=== PATIENT | female | born 1950 | race Caucasian/White ===

== ENCOUNTER 2016-09-14 15:11 | Inpatient (IN) ==
[2016-09-14 15:50] LABS: MANUAL DIFF NEEDED? NO
[2016-09-14 16:00] LABS: BASO% 0.2 % (0.0-0.8); EOS# 0.23 X1000 (0.0-0.7); EOS% 1.4 % (0.0-10.0); HEMATOCRIT 42.2 % (37.0-47.0); HEMOGLOBIN 14.5 g/dL (12.0-16.0); IMM GRAN# 0.04 X1000 (0.0-0.04); IMM GRAN% 0.2 % (0.0-0.5); LYMPH# 3.16 X1000 (1.2-3.4); LYMPH% 19.5 % (20.5-51.1); MCH 29.1 PG (27-31); MCHC 34.4 g/dL (33-37); MCV 84.6 FL (81-99); MONO# 1.07 X1000 (0.11-0.59); MONO% 6.6 % (1.7-9.3); MPV 9.3 FL (7.4-10.4); NEUT% 72.1 % (42.2-75.2); PLT 442 X1000 (130-400); RBC 4.99 XMIL (4.2-5.4)
[2016-09-14 16:10] LABS: AGAP 16; ALBUMIN 3.8 g/dL (3.5-5.0); ALKALINE PHOSPHATASE 102 U/L (32-104); AMYLASE 20 U/L (20-200); BUN 13 mg/dL (8-22); CALCIUM 9.1 mg/dL (8.8-10.2); CHLORIDE 94 mmol/L (98-107); COSMO 282; GOT 16 U/L (10-30); GPT 21 U/L (10-36); LIPASE 15 U/L (13-60); POTASSIUM 3.6 mmol/L (3.5-5.1); SODIUM 138 mmol/L (136-145); TCO2 28 mmol/L (25-35); TOTAL BILIRUBIN 0.55 mg/dL (0.20-1.00); TOTAL PROTEIN 7.2 g/dL (6.3-8.3)
[2016-09-14] MEDS ORDERED: MORPHINE IV ONE (18:47)
[2016-09-14] MEDS ORDERED: ZOFRAN IV ONE (18:48)
[2016-09-14 18:57] LABS: URINE CULTURE NEEDED? NO; URINE MICRO REVIEW NEEDED? NO; URINE SOURCE CATH
[2016-09-14 19:03] LABS: BILIRUBIN URINE NEGATIVE (NEGATIVE); BLOOD URINE NEGATIVE (NEGATIVE); COLOR YELLOW; GLUCOSE URINE 200 mg/dL (NEGATIVE); LEUKOCYTES URINE NEGATIVE (NEGATIVE); NITRITE URINE NEGATIVE (NEGATIVE); PH URINE 5.5; PROTEIN URINE TRACE mg/dL (NEGATIVE); SP GRAVITY URINE 1.021; TURBIDITY URINE CLEAR (CLEAR); UROBILINOGEN URINE NORMAL (NORMAL)
[2016-09-14 19:06] LABS: UR EPITHELIAL CELLS <10 /HPF (<10); URINE BACTERIA NEGATIVE /HPF; URINE RBC <10 /HPF (<10); URINE WBC <10 /HPF (<10)
[2016-09-14] MEDS ORDERED: LEVAQUIN 750 MG/D5W 750 MG/150 ML IVPB IV ONE (19:20)
[2016-09-14] MEDS ORDERED: NS 1,000 ML IV ONE (19:20)
[2016-09-14] MEDS ORDERED: FLAGYL 500 MG/NS 500 MG/100 ML IVPB IV ONE (19:20)
--- NOTE | 2016-09-14 19:22 | PROVIDER DOCUMENTATION ---
This chart was entered by Marilyn Garcia Scribe, acting as scribe for Carlos Keller MD. HPI-Abdominal Pain/GI Problem - General Chief Complaint: Abdominal Pain Stated Complaint: BACK/PELVIC PAIN Time Seen by Provider: 09/14/16 18:39 Source: patient Allergies/Adverse Reactions: Patient Allergies Allergy/AdvReac Type Severity Reaction Status Date / Time No Known Allergies Allergy Verified 09/14/16 17:46 Home Medications: Home Medication List Medication Instructions Recorded Confirmed Last Taken Type Calcium Citrate/Vitamin D 1 each PO DAILY 09/14/16 09/14/16 09/14/16 06:00 History [Citracal + D] Metformin [Glucophage] 1,000 mg PO BID CC 09/14/16 09/14/16 09/14/16 06:00 History Valsartan/Hydrochlorothiazide 1 each PO DAILY 09/14/16 09/14/16 09/14/16 06:00 History [Valsartan-Hctz 160-25 mg Tab] - History of Present Illness-ABD Nature of Presenting Problems: 66 Y/O F presents to ED with ABD pain. Pt states that she's had 1 week of constant pain that is in her periumblical and suprapubic pain that is radiating to her lower back. Describes the pain as cramping. States N, V bile and D, chills, muscles aches and cough. Pt states OTC meds with no relief. Abdominal Pain Onset Location: reports: periumbilical, suprapubic Pain Radiation: reports: back Quality of Pain: reports: cramping Severity in ED: reports: severe Onset/Duration: reports: 1 week ago Timing: reports: still present Activities at Onset: reports: none Exposure to sick contacts?: No Associated Symptoms: reports: back/neck pain, cough, diarrhea, fever/chills (no fever), muscle aches, nausea, vomiting. denies: chest pain, EENT symptoms, seizure, shortness of breath Review of Systems - Adult - REVIEW OF SYSTEMS - ADULT Constitutional: reports: chills. denies: fever Eyes: reports: no symptoms reported Ears, Nose, Mouth & Throat: reports: no symptoms reported Cardiovascular: denies: chest pain Respiratory: reports: cough. denies: shortness of breath Gastrointestinal: reports: abdominal pain, diarrhea, nausea, vomiting. denies: poor appetite Genitourinary: denies: flank pain Musculoskeletal: reports: back pain. denies: neck pain Integumentary: reports: no symptoms reported Neurological: reports: no symptoms reported Psychiatric: reports: no symptoms reported Endocrine: reports: no symptoms reported Hematologic/Lymphatic: reports: no symptoms reported Allergic/Immunologic: reports: no symptoms reported All Other Systems: Reviewed and Negative Past History - Adult - PAST MEDICAL HISTORY-ADULT Review of Records: reports: Old Records Reviewed, Nursing Assessment Review, Medications Reviewed, Social history reviewed & non-contributory. - SOCIAL HISTORY Smoking: quit greater than 1 year Substance Use: none/never Alcohol Use Frequency: never Living Situation: family Physical Exam-General - PHYSICAL EXAM-ADULT Initial Vital Signs Reviewed: Yes - CONSTITUTIONAL General Appearance: appears well, alert, mild distress - EYES Eyes: PERRL/EOMI, pink conjunctivae - HEAD, EARS, NOSE, MOUTH & THROAT HENMT: normocephalic/atraumatic, moist mucous membranes, normal ENT inspection, TMs normal, pharynx normal - NECK Neck: non-tender, full range of motion, supple, normal inspection - RESPIRATORY Respiratory: chest non-tender, lungs clear, normal breath sounds - CARDIOVASCULAR Cardiovascular: tachycardia - GASTROINTESTINAL (ABDOMEN) Abdominal Exam: tenderness (suprapubic) - LYMPHATIC Lymphatic: no adenopathy - MUSCULOSKELETAL Back Exam: normal inspection, no CVA tenderness, no vertebral tenderness Extremity: normal range of motion - SKIN Integumentary: normal color, normal turgor, warm/dry - NEUROLOGIC Neurologic: sodder II-XII nml as tested - PSYCHIATRIC Psych/Mental Status: normal mood/affect, normal thought content, normal thought process, oriented x 3 Progress - PLAN OF CARE/RESULTS Progress/Plan/Lab Results: Vital Signs - 8 hr 09/14/16 15:14 09/14/16 18:35 Temperature 98.0 F Pulse Rate 91 H 102 H Respiratory Rate 20 25 H Blood Pressure 155/89 134/66 O2 Sat by Pulse Oximetry 96 96 Laboratory Results - last 24 hr 09/14/16 09/14/16 15:20 15:20 WBC 16.19 H RBC 4.99 Hgb 14.5 Hct 42.2 MCV 84.6 MCH 29.1 MCHC 34.4 RDW Std Deviation 13.4 Plt Count 442 H MPV 9.3 Immature Gran % (Auto) 0.2 Neut % (Auto) 72.1 Lymph % (Auto) 19.5 L [place] % (Auto) 6.6 Eos % (Auto) 1.4 Baso % (Auto) 0.2 Immature Gran # (Auto) 0.04 Neut # (Auto) 11.65 H Lymph # (Auto) 3.16 [place] # (Auto) 1.07 H Eos # (Auto) 0.23 Baso # (Auto) 0.04 Sodium 138 Potassium 3.6 Chloride 94 L Carbon Dioxide 28 Anion Gap 16 BUN 13 Creatinine 0.8 Estimated GFR/1.73 m2 > 60 BUN/Creatinine Ratio 16 Glucose 207 H Calculated Osmolality 282 Calcium 9.1 Total Bilirubin 0.55 AST 16 ALT 21 Alkaline Phosphatase 102 Total Protein 7.2 Albumin 3.8 Globulin 3.4 Albumin/Globulin Ratio 1.1 Amylase 20 Lipase 15 Orders Category Date Time Status NPO Diet 09/14/16 15:26 Active AMYLASE [CHEM] Stat Lab 09/14/16 15:20 Completed CBC WITH ELECTRONIC DIFF [HEME] Stat Lab 09/14/16 15:20 Completed COMPREHENSIVE METABOLIC PANEL [CHEM] Stat Lab 09/14/16 15:20 Completed LIPASE [CHEM] Stat Lab 09/14/16 15:20 Completed URINALYSIS W/POSS RFLX CULT-1 [URINALYSIS] Stat Lab 09/14/16 18:32 Ordered Result Diagrams: 09/14/16 15:20 09/14/16 15:20 - CT/MRI 1 CT Study: Abdomen Impression: Abnormal (diverticulitis) Departure - Departure Time of Disposition Decision: 19:21 DIAGNOSIS: Diverticulitis Disposition: ADMITTED INPATIENT 09 Certified Medical Emergency: Emergent Condition: Fair Referrals and Follow-Ups: Mani Sarabia MD [Primary Care Provider] - - Critical Care Note This patient required my direct & personal management of CC.: No Attestation - Physician/ ANNA Attestation Patient care was provided by Advanced Practice Provider:: No This chart was documented by the indicated scribe, (Marilyn Garcia Scribe) and accurately reflects the services I performed and decisions made by me, Carlos Keller MD, as attested by the provider's signature.
--- NOTE | 2016-09-14 19:42 | Diag Imaging Result Document ---
PROCEDURE NAME: ABDOMEN/PELVIS W/O CONTRAST - 09/14/2016 CT UROGRAM WITHOUT CONTRAST: FINDINGS: There are no previous studies. There is no evidence of acute disease in the visualized portion of the chest. There is a small hiatal hernia. There are granulomata in the spleen. There has been cholecystectomy. There are vascular calcifications in the kidneys. There are no definite stones. The urinary bladder is not distended. There is severe diverticulosis, particularly in the sigmoid colon where there is evidence of active diverticulitis. There is an early abscess adjacent to the distal sigmoid seen on image 120 and measuring 2.3 cm in diameter. There is fluid in the cul-de-sac. The appendix is at the upper limits of normal in size, measuring 8 mm in diameter distally. There is an umbilical hernia containing fat. IMPRESSION: Sigmoid diverticulitis with early abscess.
--- NOTE | 2016-09-14 22:12 | HISTORY AND PHYSICAL ---
PRIMARY CARE PHYSICIAN: Mani Sarabia MD. CHIEF COMPLAINT: Abdominal pain x1 week. HISTORY OF PRESENTING ILLNESS: A 66-year-old female with a history of diabetes mellitus type 2 and hypertension who presented to the emergency department with a 1-week history of having abdominal pain. She describes it as sharp and diffuse, and rates the pain about 8/10. She states that she was nauseated. Patient states the symptoms were worsening so she came to the emergency department. In the ER, she was evaluated and had imaging done which did show diverticulitis. Subsequently she will need hospitalization and further management. At the time of my examination she had denied any headaches, vision changes, fevers, chills, chest pain, shortness of breath, hemoptysis or any weight changes but complained of a moderate amount of abdominal pain and nausea. PAST MEDICAL HISTORY: Diabetes mellitus type 2, hypertension. PAST SURGICAL HISTORY: Cholecystectomy. ALLERGIES: No known drug allergies. CURRENT MEDICATIONS: As listed in MAR. SOCIAL HISTORY: She is a former smoker with a history of alcohol abuse. Denies any illicit drug use. FAMILY HISTORY: No history of coronary disease. REVIEW OF SYSTEMS: Twelve point systems as in HPI. Other systems negative. PHYSICAL EXAMINATION: GENERAL: Cooperative, friendly female. She is resting comfortably now. VITAL SIGNS: Temperature 98.1 degrees, pulse 91, respirations 20, blood pressure 155/89, she is saturating 96%. HEENT: Atraumatic, normocephalic. Extraocular movements intact. PERRLA. NECK: Supple. CHEST: Clear to auscultation. CARDIOVASCULAR: Regular rate and rhythm. ABDOMEN: Soft. Diffuse tenderness. EXTREMITIES: No edema. NEUROLOGIC: She is awake, alert, oriented x2. GENITOURINARY: No bladder distention. SKIN: Warm. LABORATORIES AND STUDIES: WBC 16.19, hemoglobin 14.5, hematocrit 42.2, platelets 442,000. Sodium 138, potassium 3.6, chloride 94, CO2 of 28, BUN is 13, creatinine 0.8, glucose is 207. ASSESSMENT: A 66-year-old female with a history of diabetes mellitus type 2 and hypertension who presented to the emergency department with a 1-week history of having abdominal pain. The patient had imaging done in the ER which was consistent with diverticulitis. Subsequently she will need hospitalization and further management. 1. Acute sigmoid diverticulitis. 2. Diabetes mellitus type 2. 3. Hypertension. PLAN: 1. We will admit patient to medical floor with telemetry. 2. I will keep patient NPO, start patient on IV antibiotics and give adequate pain control. 3. We will use antiemetics p.r.n. nausea. 4. We will monitor blood glucose and put patient on sliding scale insulin regimen. 5. Monitor blood pressure. Resume antihypertensive agents. 6. We will put patient on DVT prophylaxis with SCDs. 7. We will continue to follow and reassess. cc: Antony Dunn MD
[2016-09-14] MEDS: NS 1,000 ML IV SCH (23:02)
[2016-09-14] MEDS: ZOSYN 3.375 GM/NS 3.375 GM/50 ML IVPB IV SCH (23:03)
[2016-09-15] MEDS: MORPHINE IV PRN ×4 (01:20→22:16)
[2016-09-15] MEDS: ZOSYN 3.375 GM/NS 3.375 GM/50 ML IVPB IV SCH ×3 (04:12→15:52)
[2016-09-15 06:15] LABS: BASO% 0.1 % (0.0-0.8); EOS# 0.02 X1000 (0.0-0.7); EOS% 0.1 % (0.0-10.0); HEMATOCRIT 36.5 % (37.0-47.0); HEMOGLOBIN 12.5 g/dL (12.0-16.0); IMM GRAN# 0.04 X1000 (0.0-0.04); IMM GRAN% 0.2 % (0.0-0.5); LYMPH# 1.53 X1000 (1.2-3.4); LYMPH% 9.2 % (20.5-51.1); MANUAL DIFF NEEDED? YES; MCH 29.6 PG (27-31); MCHC 34.2 g/dL (33-37); MCV 86.3 FL (81-99); MONO# 0.78 X1000 (0.11-0.59); MONO% 4.7 % (1.7-9.3); MPV 9.2 FL (7.4-10.4); NEUT% 85.7 % (42.2-75.2); PLT 358 X1000 (130-400); RBC 4.23 XMIL (4.2-5.4)
[2016-09-15] MEDS: HUMULIN R SUBQ SCH ×4 (06:30→22:08)
[2016-09-15 06:46] LABS: CALCIUM 8.9 mg/dL (8.8-10.2); POTASSIUM 4.2 mmol/L (3.5-5.1)
[2016-09-15 07:11] LABS: BANDS 6 % (0-1); LYMPHS 6 % (21-51); MONO 6 % (1-9)
[2016-09-15] MEDS: NS 1,000 ML IV SCH ×3 (16:46→22:16)
--- NOTE | 2016-09-15 17:16 | PROGRESS NOTE ---
DATE: 09/15/2016 SUBJECTIVE: Today Ms. Thapa refers to be doing a little better. Continues to have abdominal discomfort. OBJECTIVE: Vital signs: Blood pressure is 145/61, pulse of 113, temperature is 102.5 degrees. General: Ms. Thapa 66-year-old female. She is in bed, seems slightly in mild discomfort. HEENT: Mucosa is pink and moist. Anicteric. Acyanotic. Neck: Supple. Chest: Clear. Cardiovascular: Regular rate and rhythm. Abdomen: Distended and mildly tender all over more so to the right lower abdomen. MEAT COOLER: Patient is alert and oriented. Extremities: No pedal edema. MEAT COOLER: Patient is alert and oriented x4. LABORATORY DATA: WBC 16.65, hemoglobin is 12.5, platelet count of 358,000, there is 6% of bands on periphery smear. Sodium is 135, potassium is 4.3, chloride is 95, bicarb is 28, creatinine is 1.0. A CT scan of the abdomen did show sigmoid diverticulitis with early abscess. Abdominal ultrasound there is an old right upper quadrant surgical scar consistent with previous cholecystectomy. ASSESSMENT: 1. Sepsis secondary to diverticulitis. 2. Acute sigmoid diverticulitis with early abscess. 3. Diabetes mellitus. 4. Hypertension controlled. 5. Mild obesity. MEDICATIONS: Review of current medications include Zosyn, morphine p.r.n., insulin sliding scale. PLAN: I think Ms. Thapa continues to be showing signs of sepsis. We will consult surgery to evaluate the patient for possible intervention because of the early abscess formation and will also consult ID to guide us with the antibiotic recommendation. For now I will continue with the Zosyn which is pretty much a very broad coverage for enteric bacteria. cc: MD SOPHY Davila
[2016-09-15] MEDS: ZOFRAN IV PRN ×2 (17:25→22:16)
--- NOTE | 2016-09-15 18:34 | CONSULTATION ---
DATE OF CONSULTATION: 09/15/2016 CHIEF COMPLAINT: Acute diverticulitis with abscess. HISTORY: This is a 66-year-old, mildly obese, white female who presents with a week history of lower abdominal pain. The pain worsened yesterday. She came to the ED. A CT scan reveals acute diverticulitis with a small surrounding abscess in the sigmoid. Today, she feels to have some fever. This is her first episode. PAST HISTORY: Pertinent for type 2 diabetes, hypertension, brain aneurysm. PREVIOUS SURGERY: Includes a cholecystectomy, and she has apparently had coiling of a brain aneurysm in [place] in the past. MEDICATIONS: Listed. ALLERGIES: She has no known drug allergies. SOCIAL HISTORY: She denies smoking or alcohol use. FAMILY HISTORY: Pertinent for coronary disease. REVIEW OF SYSTEMS: Pertinent for the lower abdominal pain and now with chills and fever. PHYSICAL EXAM: Vital Signs: Her temperature was 102.5 degrees, heart rate 113, respiratory rate 28, blood pressure 145/61. Neck: No cervical adenopathy. No thyroid masses. Chest: Bilateral breath sounds heard. Heart: Regular rate and rhythm. Abdomen: Soft. She is tender with some mild rebound in the lower abdomen. Extremities: Femoral pulses are present. No peripheral edema. DIAGNOSTICS/LABS: White count is 16,600, hemoglobin 12.5. BUN 19, creatinine 1.0. ASSESSMENT/PLAN: Acute diverticulitis with abscess. The plan will be to try to give her antibiotics and help resolve her septic symptoms. If we can do that we can avoid operating on her urgently and avoid a colostomy. If we can improve her symptoms and her white count perhaps we can prep her bowel and resect this segment and prevent a colostomy. That is what we will try, but we will observe her closely for the next 24-48 hours just in case intervention becomes mandatory. Thanks for the opportunity to see her. cc: Jose Carlos Cross MD
--- NOTE | 2016-09-15 18:54 | CONSULTATION ---
DATE OF CONSULTATION: 09/16/2015 CONCLUSION: The patient is admitted to the hospital with a severe case of sigmoid diverticulitis. There appears to be early abscess formation. RECOMMENDATIONS: I agree with treating the patient with Zosyn. I have increased the dose to 4.5 g IV every 6 hours. DISCUSSION: The patient approximately a week ago started developing generalized abdominal pain, fever and chills. She also states that when she had a bowel movement or passed urine it was painful. She was admitted to the hospital. On CT scan she has sigmoid diverticulitis with early abscess formation. The patient's CBC shows a white count of 16,650, hemoglobin 12.5 and platelet count 358,000. Creatinine is 1.0. GFR is 56. PAST MEDICAL HISTORY/REVIEW OF SYSTEMS: Eyes and ears: She denies difficulty hearing or seeing. Neck: No stiffness. Respiratory: No cough or shortness of breath. : No dysuria or flank pain. Cardiovascular: No chest pain or palpitations. GI: No nausea or vomiting. She has had though as mentioned above in the past week abdominal pain and diarrhea. Bones , joints, muscles: The patient has pain in both shoulders and knees especially with use of them. Endocrine: Patient does not have diabetes or thyroid disease. Neurologic: No seizures, no motor sensory loss. Integument: No rash. LOGISTICS CLERK HISTORY: She is a 2, para 1, AB1. She has had tubal ligation. PREVIOUS HOSPITALIZATIONS AND OPERATION: She has had a labor and delivery, a miscarriage, and a tubal ligation. She has also had a cholecystectomy. She had an intracranial aneurysm which was treated by an intravascular to form a blood clot where the patient had her aneurysm. MEDICAL DISEASES: Positive for intracranial aneurysm, diabetes mellitus and hypertension. INFECTIOUS DISEASE HISTORY: Positive for pneumonia and UTI. FAMILY HISTORY: Positive for cancer, hypertension and stroke. SOCIAL HISTORY[place] She stopped smoking cigarettes years ago. She does not drink alcoholic beverages. She does not abuse drugs. ALLERGIES: Her chart lists no known allergies her. HOME MEDICATIONS: Include valsartan/hydrochlorothiazide, metformin and calcium citrate. PHYSICAL EXAMINATION: Vital Signs: Temperature is 102.5 degrees, pulse 113, respirations 28, blood pressure 145/61. Patient weighs 169 pounds. Generally: This is a somewhat ill-appearing middle-aged female. She is in no acute distress. Head, eyes, ears, nose, and throat: She can hear my spoken words and see near objects. There are no white patches in her mouth. Neck: No meningismus. Thorax: No increased AP diameter of the chest. Lungs: Clear to auscultation. Cardiac: Regular heart rate. Peripheral pulses are palpable. Abdomen: Soft but diffusely tender. Bowel sounds were present. Neurologic: Patient is alert. She can move her extremities. There is no tremor. Her sensation is intact to touch. Her memory , as regarding her medical history is intact. Integument: No rash noted. Thank you for the consult. cc: Jerry Payton MD MTDD
[2016-09-15] MEDS: ZOSYN 4.5 GM/NS 4.5 GM/100 ML IVPB IV SCH (22:16)
[2016-09-16] MEDS: NS 1,000 ML IV SCH ×3 (02:28→22:19)
[2016-09-16] MEDS: ZOSYN 4.5 GM/NS 4.5 GM/100 ML IVPB IV SCH ×3 (04:56→18:40)
[2016-09-16 06:05] LABS: BASO% 0.1 % (0.0-0.8); EOS# 0.01 X1000 (0.0-0.7); EOS% 0.1 % (0.0-10.0); HEMATOCRIT 37.9 % (37.0-47.0); HEMOGLOBIN 12.5 g/dL (12.0-16.0); IMM GRAN# 0.05 X1000 (0.0-0.04); IMM GRAN% 0.3 % (0.0-0.5); LYMPH# 0.81 X1000 (1.2-3.4); LYMPH% 4.6 % (20.5-51.1); MANUAL DIFF NEEDED? YES; MCH 28.9 PG (27-31); MCV 87.7 FL (81-99); MONO# 0.82 X1000 (0.11-0.59); MONO% 4.7 % (1.7-9.3); MPV 9.3 FL (7.4-10.4); NEUT% 90.2 % (42.2-75.2); PLT 370 X1000 (130-400); RBC 4.32 XMIL (4.2-5.4)
[2016-09-16 06:15] LABS: CALCIUM 8.3 mg/dL (8.8-10.2); POTASSIUM 3.6 mmol/L (3.5-5.1)
[2016-09-16] MEDS: HUMULIN R SUBQ SCH ×5 (06:16→22:19)
[2016-09-16 06:43] LABS: BANDS 8 % (0-1); EOS 6 % (1-10); LYMPHS 12 % (21-51); MONO 2 % (1-9)
[2016-09-16] MEDS: ZOFRAN IV PRN ×3 (06:49→22:27)
[2016-09-16] MEDS: MORPHINE IV PRN ×4 (06:49→22:27)
--- NOTE | 2016-09-16 08:24 | PROGRESS NOTE ---
DATE: 09/16/2016 PRESENT ILLNESS: The patient has a severe case of sigmoid diverticulitis with possible abscess formation. Currently, she is complaining of some pain in the back approximately at the level of the lower thoracic and upper lumbar spine. MEDICATIONS: I increased the dose of the patient's Zosyn yesterday to 4.5 g IV every 6 hours; this is day 1 of the treatment. PHYSICAL EXAMINATION: Vital Signs: Temperature maximum was 102.5. The latest temperature recorded is 99.3, pulse 122, respirations 18, blood pressure 117/56. Generally, this is a somewhat ill-appearing middle-aged female. She is in no acute distress. Lungs clear to auscultation. Cardiovascular: Regular heart rate. Abdomen soft and nontender. Back: The lower thoracic and upper lumbar spines are not swollen or tender, but the patient did indicate that is where the pain is coming from. LABORATORY DATA AND X-RAY: There is no new x-ray. The blood cultures are sterile. The patient's CBC shows a white count of 1750, hemoglobin 12.5, and platelet count of 370,000. Blood cultures are sterile. The patient's creatinine is 1.1 with a GFR of 50. Glucose is 223. ASSESSMENT AND PLAN: The patient has diverticulitis and possible abscess formation. The plan would be to continue with high-dose Zosyn. The patient's comorbidities include the following: She is elderly. She also has diabetes mellitus. cc: Jerry Payton MD
[2016-09-16 12:16] LABS: ALLEN TEST YES; BE 3.3 mmoll (-3.0-3.0); BLOOD TYPE ARTERIAL; DRAW SITE R RADIAL; METHB 1.1 % (0.0-1.5); PO2(98.6) 52 mmHg (60-100); SAMPLE BLOOD; THB 12.3 g/dL (11.5-17.4); pH(98.6) 7.33 (7.35-7.45)
[2016-09-16 12:20] LABS: PCO2(98.6) 58 mmHg (35-45)
[2016-09-16 12:21] LABS: MODALITY CANNULA
[2016-09-16 12:55] LABS: BASO% 0.1 % (0.0-0.8); HEMATOCRIT 37.1 % (37.0-47.0); HEMOGLOBIN 12.2 g/dL (12.0-16.0); IMM GRAN# 0.06 X1000 (0.0-0.04); IMM GRAN% 0.4 % (0.0-0.5); LYMPH# 1.05 X1000 (1.2-3.4); LYMPH% 6.2 % (20.5-51.1); MANUAL DIFF NEEDED? NO; MCHC 32.9 g/dL (33-37); MCV 88.1 FL (81-99); MONO# 0.85 X1000 (0.11-0.59); MPV 9.3 FL (7.4-10.4); NEUT% 88.3 % (42.2-75.2); PLT 356 X1000 (130-400); RBC 4.21 XMIL (4.2-5.4)
[2016-09-16 13:14] LABS: CALCIUM 8.3 mg/dL (8.8-10.2); POTASSIUM 3.8 mmol/L (3.5-5.1)
[2016-09-16] MEDS: TYLENOL PO PRN (13:21)
--- NOTE | 2016-09-16 14:19 | Diag Imaging Result Doc PS360 ---
EXAM: ANGIOGRAM/PULMONARY ARTERIES HISTORY: Hypoxemia to ruleout PE. COMPARISON: None. FINDINGS: There is normal opacification of the pulmonary arteries and their major branches. No cardiomegaly. No thoracic aortic aneurysm or dissection. No pleural effusions. Moderate atherosclerosis. There are several small mediastinal lymph nodes. A calcified granuloma is found in the left upper lobe. No consolidation. No bronchiectasis. IMPRESSION: 1.No pulmonary emboli 2.No pneumonia 3.Small mediastinal nodes with small calcified left hilar lymph nodes and a calcified granuloma in the left upper lobe. Electronically signed by Osmany Morales 09/16/2016 2:16 PM
--- NOTE | 2016-09-16 15:41 | PROGRESS NOTE ---
DATE: 09/16/2016 SUBJECTIVE: Today Ms. Thapa refers to be feeling bad. According to her, she is having more difficulty breathing and abdomen continues to be hurting. OBJECTIVE: Vital signs: Blood pressure is 148/55, pulse of 125, respirations 22, temperature is 101.9 degrees. General: Ms. Doss is a 71-year-old female. She is in bed. She looks slightly tachypneic, mucosa is pink and moist. Anicteric and acyanotic. Neck: Supple. Chest: Air entry is bilaterally reduced. I did not appreciate any crepitations. Abdomen: Distended. It is tender, more so to the right lower quadrant. WHEEL TRUING MACHINE TENDER: Patient is alert and oriented x4. There is no focal neurological deficit. Extremities: No pedal edema. LABORATORY DATA: WBC is 16.97, hemoglobin is 12.2, platelet count of 256,000. There was 8% of bands on peripheral smear early this morning. Sodium is 133, potassium is 3.8, chloride is 93, bicarb is 27, creatinine is 1.1. ABG that was done this afternoon shows a pCO2 of 58, pH of 7.33, a PaO2 of 86.9. DIAGNOSTICS: a CT of the lungs was then to rule out PE which was negative. There are not any remarkable pleural effusions, but I think there is some pulmonary edema. I see some fluid in the fissures. ASSESSMENT: 1. Sepsis secondary to diverticulitis. 2. Acute sigmoid diverticulitis with early abscess. 3. Diabetes mellitus. 4. Hypertension, controlled. 5. Mild obesity. 6. Acute respiratory acidosis. 7. Hypoxemia. Computed tomography angiography of the lungs is negative for pulmonary embolus. I think this is probably just the process in the abdomen getting distended and this is also compromising the lung physiology. 8. I did speak with Dr. Crsos this afternoon on Ms. Thapa in and he plans to continue current antibiotics for another 24 hours. If there is no significant improvement. He would take her to operating room. For now, Ms. Thapa continues to be febrile. She is tachycardic. She is tachypneic. Abdomen is distended. I think she is nearing possible surgery, sooner than later. cc: Williams Ponce MD
[2016-09-17] MEDS: MORPHINE IV PRN ×5 (00:49→12:42)
[2016-09-17] MEDS: ZOSYN 4.5 GM/NS 4.5 GM/100 ML IVPB IV SCH ×4 (00:49→18:34)
[2016-09-17] MEDS: ZOFRAN IV PRN ×3 (02:59→12:58)
[2016-09-17] MEDS: NS 1,000 ML IV SCH ×3 (05:45→18:51)
[2016-09-17 05:48] LABS: BASO% 0.2 % (0.0-0.8); EOS# 0.02 X1000 (0.0-0.7); EOS% 0.2 % (0.0-10.0); HEMATOCRIT 34.9 % (37.0-47.0); HEMOGLOBIN 11.1 g/dL (12.0-16.0); IMM GRAN# 0.03 X1000 (0.0-0.04); IMM GRAN% 0.3 % (0.0-0.5); LYMPH# 0.86 X1000 (1.2-3.4); LYMPH% 7.7 % (20.5-51.1); MANUAL DIFF NEEDED? YES; MCH 28.7 PG (27-31); MCHC 31.8 g/dL (33-37); MCV 90.2 FL (81-99); MONO# 0.65 X1000 (0.11-0.59); MONO% 5.9 % (1.7-9.3); MPV 9.3 FL (7.4-10.4); NEUT% 85.7 % (42.2-75.2); PLT 345 X1000 (130-400); RBC 3.87 XMIL (4.2-5.4)
[2016-09-17 05:55] LABS: LYMPHS 12 % (21-51); MONO 2 % (1-9)
[2016-09-17 06:02] LABS: AGAP 10; ALBUMIN 2.7 g/dL (3.5-5.0); ALKALINE PHOSPHATASE 87 U/L (32-104); BUN 21 mg/dL (8-22); CALCIUM 8.1 mg/dL (8.8-10.2); CHLORIDE 100 mmol/L (98-107); COSMO 280; GOT 20 U/L (10-30); GPT 19 U/L (10-36); POTASSIUM 3.9 mmol/L (3.5-5.1); SODIUM 137 mmol/L (136-145); TCO2 27 mmol/L (25-35); TOTAL BILIRUBIN 0.67 mg/dL (0.20-1.00)
[2016-09-17] MEDS: HUMULIN R SUBQ SCH ×4 (06:26→20:30)
[2016-09-17 08:44] LABS: INR 1.17; PROTIME 12.4 Seconds (9.2-11.7)
--- NOTE | 2016-09-17 08:52 | PROGRESS NOTE ---
DATE: 09/17/2016 PRESENT ILLNESS: The patient has sigmoid diverticulitis with possible abscess formation. Overall I think she is getting better. MEDICATIONS: This is day 2 of treatment with high-dose Zosyn in a dose of 4.5 g IV every 6 hours. PHYSICAL EXAMINATION: Vital Signs: Temperature is 98.3 degrees, pulse 104, respirations 20, blood pressure 138/50. General: This is a somewhat ill-appearing, middle-aged female. She is in no acute distress. Lungs: Clear to auscultation. Cardiovascular: Regular heart rate. Abdomen: Was slightly tender in the lower part of the abdomen but it was soft and bowel sounds were present. LAB AND X-RAY: Today the patient's CBC shows a white count of 11,100, hemoglobin 11.1, and platelet count 345,000. Creatinine 0.9. GFR is greater than 60. Patient's blood cultures are sterile. Pulmonary angiogram showed no pulmonary embolus or pneumonia. ASSESSMENT AND PLAN: Patient has diverticulitis with possible abscess formation. I told her that I thought since she was going to be getting antibiotics for while it would be better to put a PICC in and in that regard, the nurses are finding difficulty in finding IV sites for her. I put a consult in for a PICC to be installed. The patient's comorbidities include she is elderly and she has diabetes mellitus. cc: Jerry Payton MD
[2016-09-17] MEDS ORDERED: NS 250 ML ONE (13:49)
--- NOTE | 2016-09-17 16:52 | PROGRESS NOTE ---
DATE: 09/17/2016 SUBJECTIVE: Today, Ms. Thaap refers to be doing slightly better than yesterday. Abdomen continues to be distended, but breathing is better. Has not had any more fever. OBJECTIVE: Vital signs: Blood pressure is 128/50, pulse of 93, respirations 18, temperature 98.4. General: Ms. Thapa is a 66-year-old female. She was in bed. Not seemingly distressed. HEENT: Mucosa is pink and moist. Anicteric. Acyanotic. Neck: Supple. Chest: Good air entry bilateral. No crepitations. Cardiovascular: Regular rate and rhythm. Abdomen: Soft, is distended. Mildly tender, more so to the right lower quadrant than the left. BREAK AND LOAD OPERATOR: Patient is alert and oriented x4. There is no focal neurological deficit. LABORATORY DATA: WBC is down to 11.10, hemoglobin is 11.1, platelet count of 345. There is no peripheral band. Chemistry is reviewed. Completely normal. So far, blood cultures done on the show some diphtheroids, which I think is probably contamination. There is 1/2. MEDICATIONS: The patient is currently on p.r.n. morphine, sliding scale insulin and Zosyn. ASSESSMENT: 1. Sepsis secondary to diverticulitis. 2. Acute sigmoid diverticulitis with early abscess. Seems to be progressively improving. 3. Diabetes mellitus. 4. Hypertension controlled. 5. Hypoxemia. Has also improved. 6. Morbid obesity. PLAN: So, in general, I think Ms. Thapa is doing a whole lot better. We did a CTA of the chest yesterday to rule out PE, which was completely normal and her vitals and lab work today is improving. The patient herself refers to be feeling a whole lot better. I suspect the diverticulitis is now better controlled. We are going to continue with the current antibiotics and follow up with further recommendations from ID and surgery. We appreciate the recommendations from Dr. Payton and Dr. Cross in the care for Ms. Thapa. cc: Williams Ponce MD
--- NOTE | 2016-09-17 18:39 | PROGRESS NOTE ---
DATE: 09/17/2016 SUBJECTIVE: The patient continues to complain of lower abdominal pain but she says overall she has improved some since her admission. She has had some nausea but is tolerating sips of water. She was able to get out of the bed some today which is an improvement for her. OBJECTIVE: She is afebrile. Pulse 93, respiratory rate 18, blood pressure 128/50, O2 saturation 100%.General: She is alert, oriented, and does not appear to be in any distress. CV: Regular rate and rhythm. Respiratory: No work of breathing. Gastrointestinal: Soft. Nondistended. She is tender all over especially in the lower abdomen. No rebound or guarding. LABORATORY: White blood cell count 57315, hemoglobin 11.1, platelet count 345,000. Electrolytes look okay. ASSESSMENT/PLAN: A 66-year-old female with diverticular abscess. She has made some improvement since admission. I think we should continue with nonoperative therapy and antibiotics as directed per Dr. Payton. Hopefully as she improves with the next few days we can advance her diet. cc: Tera Tolentino MD
[2016-09-17] MEDS: TYLENOL PO PRN (20:34)
[2016-09-18] MEDS: NS 1,000 ML IV SCH ×3 (00:30→13:49)
[2016-09-18] MEDS: ZOSYN 4.5 GM/NS 4.5 GM/100 ML IVPB IV SCH ×4 (00:30→19:50)
[2016-09-18] MEDS: MORPHINE IV PRN ×3 (02:27→14:27)
[2016-09-18 05:06] LABS: MANUAL DIFF NEEDED? NO
[2016-09-18 05:12] LABS: BASO% 0.3 % (0.0-0.8); EOS# 0.19 X1000 (0.0-0.7); EOS% 2.4 % (0.0-10.0); HEMATOCRIT 33.5 % (37.0-47.0); HEMOGLOBIN 10.5 g/dL (12.0-16.0); IMM GRAN# 0.05 X1000 (0.0-0.04); IMM GRAN% 0.6 % (0.0-0.5); LYMPH# 1.05 X1000 (1.2-3.4); LYMPH% 13.2 % (20.5-51.1); MCH 28.4 PG (27-31); MCHC 31.3 g/dL (33-37); MCV 90.5 FL (81-99); MONO# 0.88 X1000 (0.11-0.59); MPV 9.4 FL (7.4-10.4); NEUT% 72.5 % (42.2-75.2); PLT 293 X1000 (130-400)
[2016-09-18 05:25] LABS: AGAP 9; BUN 18 mg/dL (8-22); CALCIUM 7.7 mg/dL (8.8-10.2); CHLORIDE 103 mmol/L (98-107); COSMO 287; POTASSIUM 4.1 mmol/L (3.5-5.1); SODIUM 142 mmol/L (136-145); TCO2 30 mmol/L (25-35)
[2016-09-18] MEDS: HUMULIN R SUBQ SCH ×4 (06:11→20:01)
--- NOTE | 2016-09-18 10:26 | PROGRESS NOTE ---
DATE: 09/18/2016 PRESENT ILLNESS: The patient has a sigmoid diverticular abscess. Overall, she is improving. MEDICATIONS: The patient is on high dose Zosyn at 4.5 g IV every 6 hours. This is the 3rd day of treatment. PHYSICAL EXAMINATION: Vital Signs: Temperature is 98 degrees, pulse 90, respirations 14, blood pressure 120/60. Generally, this is a somewhat ill-appearing, middle-aged female. She is in no acute distress. Cardiovascular: Heart rate is regular. Lungs clear to auscultation. Abdomen is soft but tender especially in the lower part of the abdomen. Bowel sounds are present. LABORATORY DATA AND X-RAY: There is no new x-ray today. The CBC for today shows a white count of 7970, hemoglobin 10.5, and platelet count 293,000. Creatinine is 0.7. The GFR is greater than 60. The patient had 1 of his 2 blood cultures grow diphtheroid. I think this is a contaminant and does not need to be treated. ASSESSMENT AND PLAN: The patient had a diverticular abscess. The plan is to continue with IV Zosyn. Also, I have consulted physical therapy to help the patient become more mobile. The patient's comorbidities include being elderly and having diabetes mellitus. cc: Jerry Payton MD
[2016-09-18] MEDS: ZOFRAN IV PRN (14:28)
--- NOTE | 2016-09-18 15:41 | PROGRESS NOTE ---
DATE: 09/18/2016 SUBJECTIVE: A 66-year-old with history of diabetes mellitus type 2 and hypertension who presented to the emergency department with a 1-week history of having abdominal pain described as sharp and diffuse, radiates, and intensity gets up to 8 out of 10. States she was nauseated and symptoms worsened, so she came to the emergency room. History of diabetes mellitus type 2 and hypertension, so admitted with acute sigmoid diverticulitis, diabetes mellitus type 2, and hypertension. She states that she is better. The pain is less and improving. OBJECTIVE: Vital Signs: Remains afebrile. Temperature 97.7 degrees, pulse 85, respirations 16, blood pressure 150/63. HEENT: Pupils are equal and round. Lungs: Clear in all lung olivera. Cardiovascular: Regular rhythm and rate, without murmur or S3. Abdomen: Soft. Skin: Warm and dry. LABORATORY: White count 7970, hematocrit 33, platelet count 293,000. Sodium 142, potassium 4.1, chloride 103, bicarbonate 30, BUN 18, creatinine 0.7, blood sugar 154, 129, and 140. ASSESSMENT AND PLAN: 1. Sigmoid diverticular abscess. Continues to improve. Is on Zosyn 4.5 g IV q.6 hours, 3rd day of treatment, and clinical improving. 2. Hypertension. Blood pressure well controlled. 3. Nutrition good. Reviewed orders and do not see any changes. 4. Diabetes mellitus, type 2. Follow blood sugars. cc: Zuhair Beckwith MD
--- NOTE | 2016-09-18 16:40 | PROGRESS NOTE ---
DATE: 09/18/2016 SUBJECTIVE: The patient has had some improvement, although she thinks her pain is starting to return. It is mostly in the lower abdomen. She still has nausea. She has passed a little gas today. OBJECTIVE: Vital Signs: She is afebrile. Vital signs are stable. General: She is alert and oriented x3, in no acute distress. Abdomen: Soft, nondistended. She does have bowel sounds. She has mild tenderness in the lower abdomen. No rebound or guarding. ASSESSMENT AND PLAN: A 66-year-old female with sigmoid diverticular abscess. She is slowly improving. Hopefully, we can increase her diet to clear liquids tonight and fulls over the weekend. Dr. Frances will make rounds over the weekend. cc: Tera Tolentino MD
[2016-09-19] MEDS: ZOSYN 4.5 GM/NS 4.5 GM/100 ML IVPB IV SCH ×4 (00:21→19:00)
[2016-09-19] MEDS: MORPHINE IV PRN (00:21)
[2016-09-19] MEDS: ZOFRAN IV PRN (00:26)
[2016-09-19] MEDS: NS 1,000 ML IV SCH ×3 (04:26→18:06)
[2016-09-19] MEDS: HUMULIN R SUBQ SCH ×4 (06:58→21:05)
--- NOTE | 2016-09-19 14:57 | PROGRESS NOTE ---
DATE: 09/19/2016 Ms. Aline Thapa is a 66-year-old white female who is a patient Dr. Sigala who is admitted with complicated sigmoid diverticulitis with abscess. The abscess was small and we are treating it conservatively with IV antibiotics and her white blood cell count has returned to normal. Clinically she states that she feels better with less abdominal pain. She has had multiple bowel movements. We will continue IV antibiotics and conservative care at this time. cc: Shaina Frances MD
--- NOTE | 2016-09-19 15:53 | PROGRESS NOTE ---
DATE: 09/19/2016 SUBJECTIVE: Today, Ms. Thapa refers to be doing a whole lot better. Continues to have mild abdominal discomfort. OBJECTIVE: Vital signs: Blood pressure is 129/67, pulse of 75, respirations 18 , temperature 98.6 degrees. General: Ms. Thapa is a 66-year-old female. She is in bed. She did not seem to be in any distress. HEENT: Mucosa pink and moist. Anicteric. Acyanotic. Neck: Supple. Chest: No crepitations. No rhonchi. Cardiovascular: Regular rate and rhythm. Abdomen: Soft. Still mildly tender, more so in the right lower abdomen. Extremities: No pedal edema. Central Nervous System: Patient is alert and oriented x4. LABORATORY DATA: None for today. CURRENT MEDICATIONS: 1. Insulin sliding scale. 2. Morphine 4-10 IV q.2 p.r.n. 3. Zosyn 4.5 q.6 p.r.n. ASSESSMENT: 1. Sepsis on presentation, resolved. 2. Acute sigmoid diverticulitis with early abscess. The patient is clinically improving. We will continue with the current IV antibiotics. 3. Diabetes mellitus, controlled. 4. Hypertension, controlled. 5. Morbid obesity. 6. Hypoxemia, improved. In general, I think Ms. Thapa is gradually getting better. She is now on clear liquid diet. She still has some residual abdominal discomfort. We will therefore be cautious with her diet. For now, will continue with just the clear liquid diet, encourage her to sit up more in the bed or in a chair, and will continue with the current antibiotics. cc: MD SOPHY Davila
[2016-09-19] MEDS: TYLENOL PO PRN (21:05)
[2016-09-20] MEDS: ZOSYN 4.5 GM/NS 4.5 GM/100 ML IVPB IV SCH ×4 (00:15→18:09)
[2016-09-20] MEDS: NS 1,000 ML IV SCH ×3 (05:52→15:41)
[2016-09-20 06:07] LABS: MANUAL DIFF NEEDED? NO
[2016-09-20 06:17] LABS: BASO% 0.2 % (0.0-0.8); EOS# 0.23 X1000 (0.0-0.7); EOS% 2.5 % (0.0-10.0); HEMATOCRIT 33.5 % (37.0-47.0); IMM GRAN# 0.09 X1000 (0.0-0.04); LYMPH# 1.28 X1000 (1.2-3.4); LYMPH% 13.8 % (20.5-51.1); MCH 28.6 PG (27-31); MCHC 32.8 g/dL (33-37); MCV 87.2 FL (81-99); MONO# 0.76 X1000 (0.11-0.59); MONO% 8.2 % (1.7-9.3); NEUT% 74.3 % (42.2-75.2); PLT 346 X1000 (130-400); RBC 3.84 XMIL (4.2-5.4)
[2016-09-20 06:31] LABS: AGAP 10; BUN 8 mg/dL (8-22); CALCIUM 7.7 mg/dL (8.8-10.2); CHLORIDE 102 mmol/L (98-107); COSMO 285; SODIUM 143 mmol/L (136-145); TCO2 31 mmol/L (25-35)
[2016-09-20] MEDS ORDERED: POTASSIUM CHLORIDE 20% LIQUID PO ONE (06:32)
[2016-09-20] MEDS: HUMULIN R SUBQ SCH ×4 (07:14→21:25)
[2016-09-20] MEDS: MORPHINE IV PRN (08:15)
--- NOTE | 2016-09-20 09:24 | PROGRESS NOTE ---
DATE: 09/20/2016 SUBJECTIVE: Ms. Thapa is now hospital day 6, admitted with complicated sigmoid diverticulitis with abscess. She has been treated with IV antibiotics but still continues to have some discomfort in the suprapubic area despite her white blood cell count returning towards normal and daily IV antibiotics. OBJECTIVE: Her heart rate is 75, blood pressure 167/74, O2 saturation is 95% on room air. She is afebrile on IV Zosyn. It appears that she had some tenderness in the lower abdomen. Her abdomen is distended but she is having multiple loose bowel movements. Her white blood cell count is 9, hematocrit is 33%. Electrolytes are within normal limits. She is on liquids. She is voiding without difficulty. PLAN: We will continue IV antibiotics today and consider a repeat CT scan of her abdomen and pelvis tomorrow because of her ongoing discomfort. cc: Shaina Frances MD
--- NOTE | 2016-09-20 18:50 | PROGRESS NOTE ---
DATE: 09/20/2016 SUBJECTIVE: Today Ms. Thapa refers to be doing fine. Continues to have some abdominal distention. According to her, she has been having multiple, multiple diarrhea. OBJECTIVELY: Vitals: Blood pressure 106/82, pulse of 79, respirations 16, temperature 97.5 degrees. General: Ms. Thapa is a 66-year-old female. She is in bed, did not seems to be in any remarkable distress. HEENT: Mucosa is pink and moist. Anicteric. Acyanotic. Neck: Supple. Chest: Clear. Cardiovascular: Regular rate and rhythm. Abdomen: Soft, is distended, is mildly tender in the right lower quadrant. Bowel sounds are kind of reduced. Extremities: No pedal edema. ENGAGEMENT EXECUTIVE: Patient is alert and oriented x4. There is no focal neurological deficit. LABORATORY DATA: WBC is down to 9.25, hemoglobin is 11.4, platelet count of 346,000. Chemistry reviewed. Potassium is 3.0, rest of chemistry is unremarkable. Glucose is 124. CURRENT MEDICATIONS: Include. 1. Insulin sliding scale. 2. Morphine. 3. Zosyn. 4. Normal saline at 125 mL/h. ASSESSMENT: 1. Sepsis on presentation is resolved. 2. Acute sigmoid diverticulitis with early abscess. Clinically patient looks a whole lot better. Will continue with the IV antibiotics. 3. Diarrhea. Etiology is unclear. Patient is on antibiotics and we are concerned of possibility of Clostridium difficile. We would do the antigen and toxin determination. The diarrhea could also just be because of antibiotic side effects. 4. Diabetes mellitus controlled. 5. Hypoxemia resolved. So in general I think Ms. Thapa is clinically improving. We are going to replace her potassium since this could also potentially just be causing some of her abdominal distention. We would do a C. difficile antigen and toxin to make sure there is no infection from the diarrhea. We would advance patient's diet to full liquid diet. cc: Williams Ponce MD
[2016-09-21] MEDS: NS 1,000 ML IV SCH ×3 (00:46→13:27)
[2016-09-21] MEDS: ZOSYN 4.5 GM/NS 4.5 GM/100 ML IVPB IV SCH ×4 (01:45→21:09)
[2016-09-21 06:19] LABS: MANUAL DIFF NEEDED? NO
[2016-09-21 06:30] LABS: BASO% 0.3 % (0.0-0.8); EOS# 0.25 X1000 (0.0-0.7); EOS% 2.3 % (0.0-10.0); HEMATOCRIT 37.3 % (37.0-47.0); HEMOGLOBIN 12.5 g/dL (12.0-16.0); IMM GRAN% 1.8 % (0.0-0.5); LYMPH# 2.04 X1000 (1.2-3.4); LYMPH% 18.4 % (20.5-51.1); MCH 28.5 PG (27-31); MCHC 33.5 g/dL (33-37); MCV 85.2 FL (81-99); MONO# 0.76 X1000 (0.11-0.59); MONO% 6.8 % (1.7-9.3); NEUT% 70.4 % (42.2-75.2); PLT 405 X1000 (130-400); RBC 4.38 XMIL (4.2-5.4)
[2016-09-21] MEDS: HUMULIN R SUBQ SCH ×4 (06:48→21:12)
[2016-09-21 07:09] LABS: AGAP 12; BUN 3 mg/dL (8-22); CALCIUM 7.9 mg/dL (8.8-10.2); CHLORIDE 100 mmol/L (98-107); COSMO 285; POTASSIUM 2.8 mmol/L (3.5-5.1); SODIUM 144 mmol/L (136-145); TCO2 32 mmol/L (25-35)
--- NOTE | 2016-09-21 08:23 | Diag Imaging Result Doc PS360 ---
ABDOMEN/PELVIS W/WO CONTRAST - 09/21/2016 INDICATION: Complicated sigmoid diverticulitis, s/p IV abx TECHNIQUE: A CT dose reduction protocol was used. COMPARISON: 09/14/2016 FINDINGS: On the noncontrast exam, there are no abnormal calcifications. On the contrast enhanced exam, there is a trace right pleural effusion. No infiltrates. Heart size is top normal. Stable cholecystectomy clips. Stable pancreatic atrophy. Stable renal cortical scarring bilaterally. There is significant worsening flank edema. There is a small encapsulated, rim-enhancing fluid collection between the urinary bladder and the fundus of uterus. Overall this measures about 5.5 x 2.5 cm. This is very deep in the soft tissues and would be very difficult to access percutaneously. There is another tiny encapsulated rim-enhancing fluid collection posterior to the lower uterine segment. No bowel obstruction or free air. There are moderate degenerative changes of the spine. No acute or suspicious bony lesion. IMPRESSION: Small pelvic abscesses at the uterine fundus and posterior uterine segment. Electronically signed by Tad Del Castillo 09/21/2016 8:20 AM
[2016-09-21] MEDS ORDERED: MAGNESIUM SULFATE 2 GM/S.W.I. 2 GM/50 ML IVPB IV ONE (08:30)
[2016-09-21] MEDS: POTASSIUM CHLORIDE 20 MEQ/SWI 20 MEQ/100 ML IVPB IV SCH ×2 (09:31→11:17)
--- NOTE | 2016-09-21 10:37 | PROGRESS NOTE ---
DATE: 09/21/2016 PRESENT ILLNESS: The patient has a sigmoid diverticular abscess. MEDICATIONS: The patient is receiving Zosyn 4.5 g IV every 6 hours. This is the 6th day of treatment with the antibiotic. PHYSICAL EXAMINATION: Vital Signs: Temperature is 97.9 degrees, pulse 74, respirations 18, blood pressure 156/58. Generally, the patient to me looks better today. It does not look like she is having as much pain, and she is smiling and is sitting up. Lungs clear to auscultation. Cardiovascular: Regular heart rate. Abdomen and flank soft and nontender. Neurologic: The patient is alert. She can move her extremities. There is no tremor. LABORATORY DATA AND X-RAY: The patient had a repeat CT scan that shows pelvic abscesses. There does not appear to be any decrease in the size of the larger abscess from a prior CT scan. The patient's CBC shows a white count of 11,110. Hemoglobin 12.5 and platelet count 405,000. Clostridium difficile, stool for toxin and antigen was negative. Creatinine is 0.5. GFR is greater than 60. ASSESSMENT AND PLAN: The patient has presumed diverticulitis with a diverticular abscess. For now, I plan to continue Zosyn. The patient's comorbidities include she is elderly and she also has diabetes mellitus. cc: Jerry Payton MD
[2016-09-21] MEDS ORDERED: IMODIUM PO PRN (12:07)
[2016-09-21] MEDS ORDERED: GOLYTELY PO ONE (12:42)
--- NOTE | 2016-09-21 12:58 | PROGRESS NOTE ---
DATE: 09/21/2016 SUBJECTIVE: Today Ms. Thapa refers to be doing a little better. She continues to have some abdominal discomfort but has been afebrile. OBJECTIVE: Vital signs: Blood pressure is 156/58, pulse of 74, respirations 18 , temperature is 97.9 degrees. General: Ms. Thapa is a 66-year-old female. She is in bed. She did not seem to be in remarkable distress. HEENT: Mucosa is pink and moist. Anicteric. Acyanotic. Neck: Supple. Chest: Air entry is bilaterally reduced. There are a few bibasilar crepitations. Cardiovascular: Regular rate and rhythm. Abdomen: Soft. It is distended. Bowel sounds are present. There is some tenderness to the right lower abdomen. SENIOR CAPITAL MARKETS SPECIALIST: The patient is alert and oriented x4. LABORATORY DATA: WBC is 11.11, hemoglobin is 12.5, platelet count is 405,000. Chemistry is reviewed. Potassium is 2.8. Vitamin D is 21.1. ASSESSMENT: 1. Sepsis on presentation. SIRS criteria has resolved. 2. Acute sigmoid diverticulitis with a early abscess. Patient is currently on IV antibiotics and continues being followed by ID. There is a new CT scan which shows a small pelvic abscess at the uterine fundus and posterior uterine segment. I think it is all part of the diverticular that is pretty close to the uterus. We are going to be waiting on surgery to evaluate the patient to see if they would want to intervene or continue with the IV antibiotics. 3. Diarrhea. The patient continues to have loose bowel movements. Yesterday we did C. difficile which is completely negative. I think this is probably side effects of the antibiotics. 4. Diabetes mellitus is controlled. 5. Mild fluid overload. The patient is having some mild edema in the lower extremities and her CT scan of the abdomen did mention trace of right pleural effusion and significant worsening flank edema, so I will go ahead and cut down the IV fluid to only 75 mL/h from 125. 6. Hypokalemia. Will give the patient a dose of 40 mg IV potassium with magnesium to correct that. 7. Vitamin D deficiency. We will start replacing it once it is okay with surgery to use the enteral route 8. Patient is currently on a full liquid diet. Will be pending recommendations from surgery. If they do not plan to do anything today we might be able to advanced her diet as tolerated. cc: Williams Ponce MD MTDD
[2016-09-21] MEDS: ERYTHROMYCIN BASE PO SCH ×3 (13:27→21:10)
[2016-09-21] MEDS: NEOMYCIN PO SCH ×3 (14:22→21:09)
[2016-09-22] MEDS: ZOSYN 4.5 GM/NS 4.5 GM/100 ML IVPB IV SCH ×4 (04:08→20:34)
[2016-09-22] MEDS: HUMULIN R SUBQ SCH ×4 (06:08→20:13)
[2016-09-22 06:26] LABS: AGAP 12; BUN 2 mg/dL (8-22); CALCIUM 8.5 mg/dL (8.8-10.2); CHLORIDE 98 mmol/L (98-107); COSMO 281; POTASSIUM 2.8 mmol/L (3.5-5.1); SODIUM 142 mmol/L (136-145); TCO2 32 mmol/L (25-35)
[2016-09-22 06:27] LABS: BASO% 0.5 % (0.0-0.8); EOS# 0.26 X1000 (0.0-0.7); EOS% 2.4 % (0.0-10.0); HEMATOCRIT 36.8 % (37.0-47.0); HEMOGLOBIN 12.5 g/dL (12.0-16.0); IMM GRAN# 0.15 X1000 (0.0-0.04); IMM GRAN% 1.4 % (0.0-0.5); LYMPH# 2.13 X1000 (1.2-3.4); LYMPH% 19.3 % (20.5-51.1); MANUAL DIFF NEEDED? YES; MCH 28.7 PG (27-31); MCV 84.4 FL (81-99); MONO# 0.75 X1000 (0.11-0.59); MONO% 6.8 % (1.7-9.3); MPV 8.9 FL (7.4-10.4); NEUT% 69.6 % (42.2-75.2); PLT 423 X1000 (130-400); RBC 4.36 XMIL (4.2-5.4)
[2016-09-22 06:32] LABS: BANDS 8 % (0-1); EOS 2 % (1-10); LYMPHS 20 % (21-51); MONO 8 % (1-9)
--- NOTE | 2016-09-22 06:56 | PROGRESS NOTE ---
DATE: 09/22/2016 PRESENT ILLNESS: Patient has a sigmoid diverticular abscess. MEDICATIONS: This is the 7th day of treatment with Zosyn at a dose of 4.5 g IV every 6 hours. PHYSICAL EXAMINATION: Vital Signs: Temperature is 97.9 degrees, pulse 69, respirations 16, blood pressure 150/81. General: This is a healthy-appearing female. She is in no acute distress. She is, however, complaining of pain in her back and also in her abdomen. Lungs: Clear to auscultation. Cardiovascular: Regular heart rate. Abdomen: Soft but tender on the right side. Back: The patient's back was not tender and there was no swelling in the back LAB AND X-RAY STUDIES: A CBC was requested for today but the result is pending. There is a glucose which was 153. No other lab has been ordered. Also, there is no new radiographic study. ASSESSMENT AND PLAN: The patient told me that Dr. Cross felt that surgery was indicated because she was not clearing up despite receiving high doses of antibiotics. It is my understanding that she is going to have surgery sometime this afternoon. The patient is complaining of back pain but she says she thinks it is because she has been lying in bed so much. My plan is to continue Zosyn. Also, I will go ahead and get an x-ray of the patient's lumbosacral spine since she is complaining of pain in it. COMORBIDITIES: Include that she is elderly and she is a diabetic. cc: Jerry Payton MD
--- NOTE | 2016-09-22 08:09 | Diag Imaging Result Doc PS360 ---
EXAM: LUMBAR SPINE 2-VIEWS HISTORY: low back pain TECHNIQUE: Two views COMPARISON: None. FINDINGS: Good alignment. No compressed vertebra. No subluxation. Minimal degenerative bone spurring. The gallbladder has been removed. Prominent atherosclerosis. IMPRESSION: Minimal degenerative changes Electronically signed by Osmany Morales 09/22/2016 8:07 AM
[2016-09-22] MEDS ORDERED: POTASSIUM CHLORIDE 80 MEQ in NS 500 ML IV ONE (09:00)
--- NOTE | 2016-09-22 13:15 | PROGRESS NOTE ---
DATE: 09/22/2016 SUBJECTIVE: Today, Ms. Thapa refers to be doing fine. He continues to have some diarrhea and abdominal discomfort. The patient has been evaluated by Surgery, and there is a decision to intervene surgically today. OBJECTIVE: Vital Signs: Blood pressure is 150/81, pulse of 69, respirations 18, temperature 97.9 degrees. General: Ms. Thapa is a 66-year-old female. She is in bed, no distress. Mucosa is pink and moist. Anicteric. Acyanotic. Neck is supple. Cardiovascular: Regular rate and rhythm. Abdomen is soft distended. Bowel sounds are hypoactive. Extremities about 1+ pedal edema. SUPERVISOR LENS GENERATING: The patient is alert and oriented x4. No focal neurological deficit. LABORATORY DATA: WBC is 11.01, hemoglobin is 12.5, platelet count of 423,000. There is only 8% of bands on peripheral smear. Chemistry is reviewed. Potassium is 2.8. Rest of chemistry is unremarkable. CURRENT MEDICATIONS: 1. Tylenol p.r.n. 2. Insulin sliding scale. 3. Morphine p.r.n. 4. Zofran p.r.n. 5. Zosyn 4.5 g q.6 hourly. 6. Potassium. ASSESSMENT: 1. Sepsis on presentation. So far, Systemic Inflammatory Response Syndrome criteria has resolved. 2. Acute sigmoid diverticulitis with early abscess. 3. Follow-up CT scan continues to show some abscess and surgery has decided to intervene. 4. Diarrhea. Clostridium difficile negative. 5. Diabetes mellitus, controlled. 6. Mild fluid overload. IV fluids have been discontinued. 7. Hypokalemia. We will continue to replace this. 8. Vitamin D deficiency noted. In general, I think Ms. Thapa is clinically stable. As I said, CT scan continues to show some abscess. Surgery has been on board from day 1 and they think it is good idea now to intervene since CT scan continues to show abscess. cc: Williams Ponce MD
[2016-09-22] MEDS ORDERED: SODIUM CHLORIDE 0.9% 20 ML ONE (16:04)
[2016-09-22] MEDS ORDERED: MARCAINE 0.25% PF ONE (16:04)
[2016-09-22] MEDS ORDERED: EXPAREL 1.3% ONE (16:05)
[2016-09-22 16:21] LABS: URINE MICRO REVIEW NEEDED? NO; URINE SOURCE CATH
[2016-09-22 16:23] LABS: BILIRUBIN URINE NEGATIVE (NEGATIVE); BLOOD URINE NEGATIVE (NEGATIVE); COLOR YELLOW; GLUCOSE URINE NEGATIVE (NEGATIVE); LEUKOCYTES URINE NEGATIVE (NEGATIVE); NITRITE URINE NEGATIVE (NEGATIVE); PH URINE 8.5; PROTEIN URINE TRACE mg/dL (NEGATIVE); SP GRAVITY URINE 1.015; TURBIDITY URINE CLEAR (CLEAR); UR EPITHELIAL CELLS <10 /HPF (<10); URINE BACTERIA NEGATIVE /HPF; URINE RBC <10 /HPF (<10); URINE WBC <10 /HPF (<10); UROBILINOGEN URINE NORMAL (NORMAL)
--- NOTE | 2016-09-22 17:30 | OPERATIVE NOTE ---
PROCEDURE DATE: 09/22/2016 PROCEDURE: Sigmoid colon resection with drainage of pelvic abscess. SURGEON: Jose Carlos Cross MD. SHOP FIRER/FIREMAN: Lul Pearce MD, who assisted in exposure, resection and anastomosis. PREOPERATIVE DIAGNOSIS: Sigmoid diverticulitis with pelvic abscess. POSTOPERATIVE DIAGNOSIS: Sigmoid diverticulitis with pelvic abscess. DESCRIPTION OF PROCEDURE: Satisfactory general endotracheal anesthesia was achieved, the patient was placed in Zuhair stirrups. The abdomen was prepped and draped in a sterile fashion. We made an incision from above the umbilicus to the pubis. We carried our incision through the subcutaneous tissue and into the abdominal cavity. We opened the abdominal cavity and extended the skin incision. We broke down the adhesions of the small bowel to the pelvic inflammatory process. This then allowed us to place our Bookwalter retractor. We placed the patient in Trendelenburg. We used the ring and retracted the sidewalls and used the laps and Adele type attachments to retract the small bowel cephalad. We then incised the white line of Toldt laterally, entering the pelvis, bringing up the adhesions. We entered the abscess on the medial aspect at the dome of the uterus and drained out the pus there. We then incised the medial side of the sigmoid as well. We chose a spot in the proximal sigmoid to clean off the part from other diverticula and used a MITA-80 blue cartridge to divide the bowel there. We then divided the mesentery using the LigaSure. We continued our dissection distally until we went past the area of the leak into normal appearing colon in the distal sigmoid. Here, we cleaned off the bowel again and placed two 3-0 silk stitches from the distal bowel to the proximal bowel and then amputated the diseased sigmoid to get it out of the way because it was so inflamed and enlarged, that we could not see well with it in the wound. We used a Lidia to open up the distal lumen. The muscle was a bit thickened, but the mucosa appeared normal. We then proceeded to place 3-0 silks in a Lembert fashion besides the corners, but also posteriorly and we approximated those. We then amputated the staple line. We used a 3-0 Polysorb running locking stitch posteriorly, changed to a [place] stitch anteriorly, and then the final layer was 3-0 silks in a Lembert fashion anterior to this, thereby finished a 2 layer end-to-end anastomosis. At this point, we changed our gloves and rid ourselves of contaminated instruments. We irrigated the pelvis, including the area of the abscess cavity. We placed a Rivera drain coming out the right lower quadrant into the pelvis in the area of the abscess cavity and deep into the bottom of the pelvis. We then resumed normal position and allowed the small bowel and omentum to lay in its normal place. We closed the peritoneum with a 2-0 chromic. We closed the fascia with a running #2 Prolene. We copiously irrigated out the subcutaneous tissue. We then closed the skin with valerio. 2-0 silk was used to secure the drain at the skin level. The anesthesiologist then came to insert a pararectal block for pain relief. She tolerated the procedure satisfactorily and was sent to the recovery room in satisfactory condition. cc: Jose Carlos Cross MD
[2016-09-22] MEDS: DILAUDID ONE ×3 (17:55→18:13)
[2016-09-22] MEDS ORDERED: MORPHINE ONE (18:03)
[2016-09-22] MEDS ORDERED: FENTANYL ONE ×2 (18:05)
[2016-09-22] MEDS ORDERED: DIPRIVAN 1% ONE (18:06)
[2016-09-22] MEDS ORDERED: DILAUDID ONE (18:24)
[2016-09-22] MEDS ORDERED: LABETALOL ONE (18:32)
[2016-09-22] MEDS: NS 1,000 ML IV SCH ×2 (18:41→22:26)
[2016-09-23] MEDS: MORPHINE IV PRN ×7 (00:27→23:35)
[2016-09-23] MEDS: NS 1,000 ML IV SCH ×2 (00:29→06:15)
[2016-09-23] MEDS: ZOSYN 4.5 GM/NS 4.5 GM/100 ML IVPB IV SCH ×4 (02:47→21:33)
[2016-09-23 06:13] LABS: MANUAL DIFF NEEDED? NO
[2016-09-23] MEDS: HUMULIN R SUBQ SCH ×4 (06:15→21:33)
[2016-09-23 06:19] LABS: BASO% 0.1 % (0.0-0.8); EOS% 0.7 % (0.0-10.0); HEMATOCRIT 34.7 % (37.0-47.0); HEMOGLOBIN 11.3 g/dL (12.0-16.0); IMM GRAN# 0.12 X1000 (0.0-0.04); IMM GRAN% 0.8 % (0.0-0.5); LYMPH# 1.66 X1000 (1.2-3.4); LYMPH% 11.2 % (20.5-51.1); MCH 28.6 PG (27-31); MCHC 32.6 g/dL (33-37); MCV 87.8 FL (81-99); MONO# 1.06 X1000 (0.11-0.59); MONO% 7.1 % (1.7-9.3); NEUT% 80.1 % (42.2-75.2); PLT 459 X1000 (130-400); RBC 3.95 XMIL (4.2-5.4)
[2016-09-23 06:42] LABS: AGAP 11; BUN 6 mg/dL (8-22); CALCIUM 7.6 mg/dL (8.8-10.2); CHLORIDE 105 mmol/L (98-107); COSMO 288; POTASSIUM 3.6 mmol/L (3.5-5.1); SODIUM 145 mmol/L (136-145); TCO2 29 mmol/L (25-35)
--- NOTE | 2016-09-23 07:37 | PROGRESS NOTE ---
DATE: 09/23/2016 PRESENT ILLNESS: The patient is status post surgery yesterday for a sigmoid diverticular abscess. MEDICATIONS: The patient continues on Zosyn. This is the 8th day of treatment with the antibiotic. PHYSICAL EXAMINATION: Vital Signs: Temperature is 97.6 degrees, pulse 76, respirations 16, blood pressure 156/66. General: This is a somewhat ill-appearing, middle-aged female. She is having some abdominal pain but she is in no acute distress. Lungs: Clear to auscultation. Cardiovascular: Regular heart rate. Abdomen: Soft but it is tender to minimal palpation. Skin: The patient has a dressing on the wound and the dressing is intact. LAB AND X-RAY: Today, the CBC showed a white count of 14,880, hemoglobin 11.3, and platelet count of 459,000. Creatinine is 0.6. GFR is greater than 60. X-ray of the lumbar spine showed only minimal degenerative changes. ASSESSMENT AND PLAN: The plan now is to continue with the Zosyn following the patient's surgery. The operative note is not yet returned. COMORBIDITIES: Include the fact she is elderly and also is a diabetic. cc: Jerry Payton MD
[2016-09-23] MEDS ORDERED: XYLOCAINE-MPF 2% ONE (08:27)
[2016-09-23] MEDS ORDERED: QUELICIN (DOSE) ONE (08:27)
[2016-09-23] MEDS ORDERED: NORCURON ONE (08:27)
[2016-09-23] MEDS ORDERED: LABETALOL (DOSE) ONE (08:27)
[2016-09-23] MEDS ORDERED: ZOFRAN ONE (08:27)
[2016-09-23] MEDS ORDERED: NEOSTIGMINE ONE (08:27)
[2016-09-23] MEDS ORDERED: SODIUM CHLORIDE 0.9% 10 ML ONE (08:27)
[2016-09-23] MEDS ORDERED: ROBINUL ONE (08:27)
[2016-09-23] MEDS ORDERED: LR 4,000 ML ONE (08:27)
[2016-09-23] MEDS ORDERED: NS 1,000 ML IV SCH (09:44)
[2016-09-23] MEDS: NS + KCL 20 MEQ 1,000 ML IV SCH ×2 (10:44→22:43)
--- NOTE | 2016-09-23 16:18 | PROGRESS NOTE ---
DATE: 09/23/2016 SUBJECTIVE: Today Ms. Thapa refers to be doing a lot better. She had surgery yesterday and on did pretty well postoperatively as well. This morning she is tolerating some ice chips. She has not had any bowel movement yet and has not had any flatulence. OBJECTIVE: Vital signs: Blood pressure is 143/110, pulse is 83, respiration is 15, temperature is 98.4 degrees. General: Ms. Thapa is a 66-year-old female. She was in bed. She did not seem to be in any distress. HEENT: Mucosa is pink and moist. Anicteric. Acyanotic. Neck: Supple. Chest: Good air entry bilateral. No crepitations. No rhonchi. Cardiovascular: Regular rate and rhythm. Abdomen: Soft, is distended. There is a sterile dressing over the surgical wound, I did not open it up. Bowel sounds are somewhat hypoactive. Extremities: There is no pedal edema. There are pneumatic stockings in place. LABORATORY DATA: WBC is 14.8, hemoglobin is 11.3, platelet count of 459,000. Chemistry is reviewed. Completely normal. Potassium is now back to normal to 3.6, creatinine 0.6, BUN is 6. ASSESSMENT: 1. Sepsis on presentation. So far SIRS criteria has resolved. 2. Acute sigmoid diverticulitis with abscess. Patient is status post sigmoid colon resection with drainage of pelvic abscess. I was able to talk with Dr. Cross today and did explain that patient tolerated the surgical procedure without any complications and he expects good postoperative progress. Today is day 1 postop. 3. Diabetes mellitus. Controlled. 4. Hypokalemia. Improved. 5. Vitamin D deficiency. Noted. So in general, I think Ms. Thapa is doing relatively fine. Today is day 1 postop. Has not had any bowel movement yet and has not had any flatulence. She has been given orientation to use ice chips. We will continue with the IV fluids, keep her n.p.o., and follow up with further recommendations from Surgery. Patient is being followed by both surgery team and ID. We did discuss the possibility of the patient going to rehab but at this point, she is not willing to go to any rehab. She would prefer to go home when she is ready for discharge. cc: Williams Ponce MD
[2016-09-24] MEDS: ZOSYN 4.5 GM/NS 4.5 GM/100 ML IVPB IV SCH ×4 (03:22→21:28)
[2016-09-24] MEDS: MORPHINE IV PRN ×4 (06:10→23:40)
[2016-09-24] MEDS: HUMULIN R SUBQ SCH ×4 (06:11→21:06)
[2016-09-24 06:27] LABS: MANUAL DIFF NEEDED? NO
[2016-09-24 06:43] LABS: BASO% 0.2 % (0.0-0.8); EOS# 0.24 X1000 (0.0-0.7); EOS% 1.6 % (0.0-10.0); HEMATOCRIT 32.2 % (37.0-47.0); HEMOGLOBIN 10.3 g/dL (12.0-16.0); IMM GRAN# 0.12 X1000 (0.0-0.04); IMM GRAN% 0.8 % (0.0-0.5); LYMPH# 1.57 X1000 (1.2-3.4); LYMPH% 10.5 % (20.5-51.1); MCH 28.7 PG (27-31); MCV 89.7 FL (81-99); MONO# 1.15 X1000 (0.11-0.59); MONO% 7.7 % (1.7-9.3); NEUT% 79.2 % (42.2-75.2); PLT 429 X1000 (130-400); RBC 3.59 XMIL (4.2-5.4)
[2016-09-24 06:51] LABS: AGAP 13; BUN 5 mg/dL (8-22); CALCIUM 7.9 mg/dL (8.8-10.2); CHLORIDE 102 mmol/L (98-107); COSMO 279; POTASSIUM 3.6 mmol/L (3.5-5.1); SODIUM 141 mmol/L (136-145); TCO2 26 mmol/L (25-35)
[2016-09-24] MEDS: NS + KCL 20 MEQ 1,000 ML IV SCH ×3 (08:20→23:40)
--- NOTE | 2016-09-24 08:39 | PROGRESS NOTE ---
DATE: 09/24/2016 PRESENT ILLNESS: The patient is status post surgery for diverticular abscess with drainage and resection of the sigmoid colon. MEDICATIONS: Patient is on high-dose Zosyn; this is the ninth day of treatment with that agent. PHYSICAL EXAMINATION: Vital Signs: Temperature is 98.3 degrees, pulse 90, respirations 18, blood pressure 180/69. General: This is a somewhat ill-appearing, middle-aged female. She is in no acute distress. Lungs: Clear to auscultation. Cardiovascular: Regular heart rate. Abdomen: Soft and lock tender. Neurologic: Patient is alert and can move his extremities. LAB AND X-RAY: Creatinine 0.5. GFR is greater than 60. CBC shows a white count of 14,960, hemoglobin 10.3, and platelet count 429,000. Stool for Clostridium difficile antigen and toxin are both negative. ASSESSMENT AND PLAN: The patient is postop sigmoid resection and drainage of an abscess. Plan would be to continue the antibiotics. The plan is to continue the patient on Zosyn for another 1- 2 weeks. I have requested that a culture be taken from the drainage in the Erwin-Castorena drain. COMORBIDITIES: The patient's comorbidities include the patient is elderly and also is a diabetic. cc: Jerry Payton MD
[2016-09-24] MEDS: PERIDEX MT SCH ×2 (09:14→21:28)
--- NOTE | 2016-09-24 14:56 | PROGRESS NOTE ---
DATE: 09/24/2016 SUBJECTIVE: Today Ms. Thapa refers to be doing a whole lot better. There was a granddaughter at the bedside at the time of the encounter. OBJECTIVE: General exam: Ms. Thapa is a 66-year-old female. She is in bed, does not seem to be in any remarkable distress. HEENT: Mucosa is pink and moist. Anicteric. Acyanotic. Neck: Supple. Chest: Good air entry bilaterally. No crepitations. Abdomen: Soft, distended. There is a sterile dressing over the anterior abdominal wall consistent with the recent surgery. Extremities: No pedal edema. STABBER: Patient is alert and oriented x4. There is no focal neurological deficit. Vital Signs: Blood pressure is 172/67, pulse of 88, respiration is 18, temperature 97.8 degrees. LABORATORY DATA: WBC is 14.96, hemoglobin is 10.3, platelet count of 426,000. Chemistries reveal completely unremarkable. ASSESSMENT: 1. Sepsis on presentation. So far, SIRS criteria has resolved. 2. Acute sigmoid diverticulitis with abscess status post sigmoid colon resection and pelvic abscess washout. Patient has a MARANDA drain in place and she is being followed up by both Surgery and Infectious Disease. 3. Diabetes mellitus. Controlled. 4. Hypokalemia. Resolved. 5. Vitamin D deficiency. Noted. 6. Uncontrolled hypertension. We would restart her p.o. medications as soon as her enteral route is reestablished and given okay by the surgeons. cc: Williams Ponce MD
[2016-09-25] MEDS: ZOSYN 4.5 GM/NS 4.5 GM/100 ML IVPB IV SCH ×4 (02:17→21:39)
[2016-09-25] MEDS: HUMULIN R SUBQ SCH ×3 (06:23→18:07)
[2016-09-25] MEDS: NS + KCL 20 MEQ 1,000 ML IV SCH ×2 (06:23→19:51)
[2016-09-25 06:28] LABS: MANUAL DIFF NEEDED? NO
[2016-09-25 06:32] LABS: BASO% 0.1 % (0.0-0.8); EOS# 0.28 X1000 (0.0-0.7); EOS% 1.9 % (0.0-10.0); HEMATOCRIT 32.5 % (37.0-47.0); HEMOGLOBIN 10.7 g/dL (12.0-16.0); IMM GRAN# 0.16 X1000 (0.0-0.04); IMM GRAN% 1.1 % (0.0-0.5); LYMPH# 1.55 X1000 (1.2-3.4); LYMPH% 10.7 % (20.5-51.1); MCH 28.9 PG (27-31); MCHC 32.9 g/dL (33-37); MCV 87.8 FL (81-99); MONO# 0.78 X1000 (0.11-0.59); MONO% 5.4 % (1.7-9.3); MPV 8.8 FL (7.4-10.4); NEUT% 80.8 % (42.2-75.2); PLT 447 X1000 (130-400)
[2016-09-25] MEDS: MORPHINE IV PRN ×4 (06:41→21:39)
--- NOTE | 2016-09-25 06:52 | PROGRESS NOTE ---
DATE: 09/25/2016 PRESENT ILLNESS: The patient is status post surgery for a diverticular abscess. It included drainage of the abscess and resection of the sigmoid colon. MEDICATIONS: This is the 10th day of treatment with high dose Zosyn. PHYSICAL EXAMINATION: Vital Signs: Temperature is 98.6 degrees pulse 92, respirations 18, and blood pressure 179/66. Generally: The patient looks much better than she did in the past few days. She is smiling now and she is anxious to have something to take by mouth. She is not complaining of pain. Lungs: Clear to auscultation. Cardiovascular: Regular heart rate. Abdomen: Soft, but it is tender. The patient's incision is intact. LAB AND X-RAY: [place] [address], hemoglobin 10.7, and platelet count 447,000. A culture was obtained yesterday from the abdominal drainage tube. No Gram stain has been done yet and the culture is still pending. ASSESSMENT AND PLAN: For now, I plan to keep the patient on high-dose Zosyn pending the final culture results. The patient is postop sigmoid resection and drainage of an abscess. COMORBIDITIES: Patient is elderly and also she is a diabetic. cc: Jerry Payton MD
[2016-09-25 06:56] LABS: AGAP 18; BUN 4 mg/dL (8-22); CALCIUM 8.5 mg/dL (8.8-10.2); CHLORIDE 100 mmol/L (98-107); COSMO 283; POTASSIUM 3.5 mmol/L (3.5-5.1); SODIUM 143 mmol/L (136-145); TCO2 25 mmol/L (25-35)
[2016-09-25] MEDS: PERIDEX MT SCH ×2 (08:25→21:39)
[2016-09-25] MEDS: DIOVAN PO SCH (11:17)
[2016-09-25] MEDS: HYDROCHLOROTHIAZIDE PO SCH (11:17)
--- NOTE | 2016-09-25 13:31 | PROGRESS NOTE ---
DATE: 09/25/2016 SUBJECTIVE: Today, Ms. Thapa referred to be doing a whole lot better. She was actually about to go for physical rehabilitation to walk around the hallway. She denied any complaint except for mild abdominal discomfort. OBJECTIVE: Vital signs: Blood pressure is 188/89, pulse 96, respirations 15, temperature 97.7 degrees, and patient was saturating 97% on room air. General: Ms. Thapa is a 66-year-old female. She was in bed, in no distress. HEENT: Mucosa pink and moist. Anicteric. Acyanotic. Neck: Supple. Chest: Clear. Cardiovascular: Regular rate and rhythm. Abdomen: Soft. There is still some sterile dressing over the anterior abdominal wall consistent with recent surgery and there is a MARANDA drain in place. Extremities: No pedal edema. Central Nervous System: Patient is alert, oriented x4. There is no focal neurological deficit. LABORATORY DATA: WBC is 14.42, hemoglobin is 10.7, and platelet count is 447,000. Chemistry is reviewed and completely normal. A pathology report shows diverticular disease with chronic active inflammation, early fibrosis and perforation with focal necrosis, and acute serosal inflammation. CURRENT MEDICATIONS: 1. Zosyn 4.5 g IV q.6. 2. IV fluids with normal saline and potassium 20 mcg. 3. Morphine p.r.n. ASSESSMENT: 1. Sepsis on presentation. So far, stable. 2. Acute complicated sigmoid diverticulitis with perforation and abscess formation, status post sigmoid colon resection, pelvic abscess washout with placement of Erwin-Castorena drain. Patient is being followed by Surgery and Infectious Disease. 3. Diabetes mellitus, controlled. 4. Uncontrolled hypertension. We are going to start the patient on her home medications including hydrochlorothiazide 25 mg daily and valsartan 160 p.o., and closely monitor her blood pressure and tune it accordingly. 5. Vitamin D deficiency. We will start the patient on cholecalciferol. I think Ms. Doss is gradually getting better. She has been started on clear liquids this morning by Surgery, so we will go ahead and start her on her p.o. blood pressure medications. cc: Williams Ponce MD
[2016-09-26] MEDS: HUMULIN R SUBQ SCH ×5 (01:03→20:42)
[2016-09-26] MEDS: ZOSYN 4.5 GM/NS 4.5 GM/100 ML IVPB IV SCH ×4 (02:51→20:42)
[2016-09-26] MEDS: MORPHINE IV PRN ×3 (04:41→20:42)
[2016-09-26 05:33] LABS: MANUAL DIFF NEEDED? NO
[2016-09-26 05:42] LABS: BASO% 0.3 % (0.0-0.8); EOS# 0.33 X1000 (0.0-0.7); EOS% 3.1 % (0.0-10.0); HEMATOCRIT 33.3 % (37.0-47.0); HEMOGLOBIN 11.2 g/dL (12.0-16.0); IMM GRAN% 0.9 % (0.0-0.5); LYMPH# 1.57 X1000 (1.2-3.4); LYMPH% 14.6 % (20.5-51.1); MCH 28.8 PG (27-31); MCHC 33.6 g/dL (33-37); MCV 85.6 FL (81-99); MONO# 0.77 X1000 (0.11-0.59); MONO% 7.1 % (1.7-9.3); MPV 8.8 FL (7.4-10.4); PLT 452 X1000 (130-400); RBC 3.89 XMIL (4.2-5.4)
[2016-09-26] MEDS: PERIDEX MT SCH ×2 (09:29→20:42)
[2016-09-26] MEDS: HYDROCHLOROTHIAZIDE PO SCH (09:32)
[2016-09-26] MEDS: DIOVAN PO SCH (09:32)
--- NOTE | 2016-09-26 15:27 | PROGRESS NOTE ---
DATE: 09/26/2016 Today Ms. Thapa refers to be doing a whole lot better. She has been up graded to full liquid diet and she was enjoying her lunch when I saw her. She has not had any bowel movement and she has not had any fluctuance. OBJECTIVE: Vital signs: Blood pressure is 173/73, pulse 83, respirations 20, temperature 97.6 degrees. General: Ms. Thapa is a 66-year-old female. She was in bed. No seemingly distress. HEENT: Mucosa is pink and moist. Anicteric. Acyanotic. Neck: Supple. Chest: Good air entry bilaterally. Few bibasilar crepitations. Cardiovascular: Regular rate and rhythm. Abdomen: Still distended. Mildly tender around the surgical scar. The MARANDA drain is still in place. Extremities: About 1+ pedal edema bilateral. COFFEE SHOP AIDE: Patient is alert and oriented x4. LABORATORY DATA: WBC is 10.79, hemoglobin is 11.2, platelet count of 452,000. Chemistry is reviewed. Completely normal. Glucose is 116. ASSESSMENT: 1. Sepsis on presentation resolved. 2. Acute complicated sigmoid diverticulitis with perforation and abscess formation status post sigmoid colon resection, pelvic abscess washout with placement of MARANDA drain. Today is day 4 postop. Patient has been started on full liquid diet today by Surgery. Will continue with the current antibiotic coverage. 3. Diabetes mellitus, controlled. 4. Hypertension. The patient was started on her medications yesterday. We would continue to monitor this and make changes accordingly. 5. Vitamin D deficiency. We will continue with medications. I think in general Ms. Thapa is progressively doing better. She has accumulated a positive balance of 22,221 mL of fluid so I will go ahead and discontinue her fluid. I encouraged her to drink some more for adequate hydration. cc: Williams Ponce MD
[2016-09-27] MEDS: ZOSYN 4.5 GM/NS 4.5 GM/100 ML IVPB IV SCH ×5 (03:50→23:36)
[2016-09-27 06:02] LABS: BASO% 0.3 % (0.0-0.8); EOS# 0.33 X1000 (0.0-0.7); EOS% 3.1 % (0.0-10.0); HEMATOCRIT 34.8 % (37.0-47.0); HEMOGLOBIN 11.6 g/dL (12.0-16.0); IMM GRAN# 0.06 X1000 (0.0-0.04); IMM GRAN% 0.6 % (0.0-0.5); LYMPH# 1.95 X1000 (1.2-3.4); LYMPH% 18.3 % (20.5-51.1); MANUAL DIFF NEEDED? NO; MCH 28.3 PG (27-31); MCHC 33.3 g/dL (33-37); MCV 84.9 FL (81-99); MONO# 0.75 X1000 (0.11-0.59); MONO% 7.1 % (1.7-9.3); NEUT% 70.6 % (42.2-75.2); PLT 472 X1000 (130-400)
[2016-09-27 06:26] LABS: AGAP 15; BUN 3 mg/dL (8-22); CALCIUM 9.2 mg/dL (8.8-10.2); CHLORIDE 96 mmol/L (98-107); COSMO 277; POTASSIUM 3.1 mmol/L (3.5-5.1); SODIUM 140 mmol/L (136-145); TCO2 29 mmol/L (25-35)
[2016-09-27] MEDS: HUMULIN R SUBQ SCH ×4 (06:45→23:36)
[2016-09-27] MEDS ORDERED: KLOR-CON PO ONE (08:14)
[2016-09-27] MEDS ORDERED: MAGNESIUM SULFATE 2 GM/S.W.I. 2 GM/50 ML IVPB IV ONE (08:14)
[2016-09-27] MEDS: HYDROCHLOROTHIAZIDE PO SCH (09:36)
[2016-09-27] MEDS: NORCO-7.5 PO PRN (09:36)
[2016-09-27] MEDS: DIOVAN PO SCH (09:37)
[2016-09-27] MEDS: PERIDEX MT SCH ×3 (09:38→23:36)
--- NOTE | 2016-09-27 16:39 | PROGRESS NOTE ---
DATE: 09/27/2016 SUBJECTIVE: Today Ms. Thapa refers to be doing fine. She has been up. She is walking. She had a bowel movement yesterday and she has been advanced to regular diet. OBJECTIVE: Vitals: Blood pressure is 115/70, pulse of 83, respirations 20, temperature 98.2 degrees. General: Ms. Thapa 66-year-old female. She is in bed, not seemingly distress. HEENT: Mucosa is pink and moist. Anicteric and acyanotic. Neck: Supple. Chest: Clear. Cardiovascular: Regular rate and rhythm. Abdomen: Soft, distended, slightly tender around the surgical scar. There is a MARANDA drain still in place. RELIABILITY TECHNICIAN: Patient is alert and oriented x4. LABORATORY DATA: WBC 10.63, hemoglobin is 11.6, platelet count of 472,000. Chemistry is reviewed. Potassium is 3.1, rest of chemistries normal. ASSESSMENT: 1. Sepsis on presentation resolved. 2. Acute complicated sigmoid diverticulitis with perforation and abscess formation status post sigmoid colon resection, pelvic abscess washout with placement of MARANDA drain. Today is day 5 postop. The patient is now on full liquid diet. She had a bowel movement yesterday and we plan to discharge her tomorrow. 3. Diabetes mellitus controlled. 4. Hypertension is better controlled. Patient is started on her oral medications. 5. Vitamin D deficiency. Will continue with supplements. In general Ms. Thapa is doing fine. She had a bowel movement today. She was started on regular diet today and her blood pressure is a whole lot better. She still has the MARANDA drain in place. I think the plan is surgery will remove the MARANDA drain. Once that is done I think we can discharge the patient home on antibiotics which I think it can be p.o. however patient is also being seen by ID so we will defer that recommendations to Dr. Payton. cc: Williams Ponce MD
[2016-09-28] MEDS: NORCO-7.5 PO PRN (01:30)
[2016-09-28] MEDS: ZOSYN 4.5 GM/NS 4.5 GM/100 ML IVPB IV SCH ×2 (02:33→09:45)
[2016-09-28 05:51] LABS: MANUAL DIFF NEEDED? NO
[2016-09-28 05:57] LABS: BASO% 0.2 % (0.0-0.8); EOS# 0.27 X1000 (0.0-0.7); EOS% 2.9 % (0.0-10.0); HEMATOCRIT 32.7 % (37.0-47.0); HEMOGLOBIN 10.9 g/dL (12.0-16.0); IMM GRAN# 0.04 X1000 (0.0-0.04); IMM GRAN% 0.4 % (0.0-0.5); LYMPH# 1.75 X1000 (1.2-3.4); LYMPH% 19.1 % (20.5-51.1); MCH 28.5 PG (27-31); MCHC 33.3 g/dL (33-37); MCV 85.6 FL (81-99); MONO# 0.69 X1000 (0.11-0.59); MONO% 7.5 % (1.7-9.3); MPV 9.1 FL (7.4-10.4); NEUT% 69.9 % (42.2-75.2); PLT 424 X1000 (130-400); RBC 3.82 XMIL (4.2-5.4)
[2016-09-28] MEDS: HUMULIN R SUBQ SCH (06:03)
[2016-09-28 06:13] LABS: AGAP 15; ALBUMIN 2.8 g/dL (3.5-5.0); ALKALINE PHOSPHATASE 68 U/L (32-104); BUN 4 mg/dL (8-22); CALCIUM 8.9 mg/dL (8.8-10.2); CHLORIDE 99 mmol/L (98-107); COSMO 282; GOT 16 U/L (10-30); GPT 18 U/L (10-36); MAGNESIUM 1.7 mg/dL (1.5-2.7); POTASSIUM 3.1 mmol/L (3.5-5.1); SODIUM 142 mmol/L (136-145); TCO2 28 mmol/L (25-35); TOTAL BILIRUBIN 0.58 mg/dL (0.20-1.00); TOTAL PROTEIN 5.8 g/dL (6.3-8.3)
[2016-09-28] MEDS ORDERED: KLOR-CON PO ONE (07:45)
[2016-09-28] MEDS ORDERED: MAGNESIUM SULFATE 2 GM/S.W.I. 2 GM/50 ML IVPB IV ONE (07:46)
--- NOTE | 2016-09-28 08:54 | DISCHARGE SUMMARY ---
ADMISSION DATE: 09/14/2016 DISCHARGE DATE: 09/28/2016 ADMITTING DIAGNOSIS: Complicated sigmoid diverticulitis with abscess. DISCHARGE DIAGNOSIS: Complicated sigmoid diverticulitis with abscess. PRINCIPLE PROCEDURE: Sigmoid colon resection with drainage of pelvic abscess by Dr. Flaquita Cross on 09/22/2016. Discharge disability is full. DISCHARGE DISPOSITION: She will return to our outpatient offices in a week for followup. DISCHARGE MEDICATIONS: She is to return to her home medications. DISCHARGE DIET: Regular. HOSPITAL COURSE: Ms. Aline Thapa is a 66-year-old overweight, white female who was admitted through our emergency department on 09/14/2016 with lower abdominal pain. As part of her evaluation, she underwent a CT scan of her abdomen and pelvis on 09/14/2016 which suggested complicated sigmoid diverticulitis with an early abscess. Initially she was admitted and received IV antibiotics for her diverticulitis. Dr. Cross, was consulted for surgery. Dr. Jerry Payton was consulted for infectious disease. On IV antibiotics she continued to have abdominal distention and lower abdominal pain. A repeat CT scan was performed on 09/21/2016 which continued to show some pelvic abscesses. It was felt that she had failed conservative treatment and that she needed to go to the operating room for sigmoid colon resection and drainage of these abscesses. These this was done on 09/22/2016 and postoperatively we felt that her convalescence has been normal. At discharge she was tolerating a regular diet. She had a bowel movement. Her incisions were healing well and her drain was draining very little serosanguineous drainage. On the day of discharge, I removed her drain. She will be discharged home under the care of her with followup in our outpatient offices in a week. She knows to contact us with any problems such as increasing abdominal pain, fever or distention. cc: Shaina Frances MD
[2016-09-28] MEDS: DIOVAN PO SCH (09:43)
[2016-09-28] MEDS: PERIDEX MT SCH (09:44)
[2016-09-28] MEDS: HYDROCHLOROTHIAZIDE PO SCH (09:44)
[2016-09-28 11:18] VITALS: BP 183/69
--- NOTE | 2016-09-28 11:18 | PROGRESS NOTE ---
DATE: 09/28/2016 PRESENT ILLNESS: The patient is status post sigmoid colon resection with drainage of pelvic abscess. Clinically, she is doing quite well. She is having less pain. Her abdomen is not tender. She is able to eat. Today, she had the drain pulled by Dr. Frances who said that the patient, from his point of view, could be discharged today. MEDICATIONS: This is the 13th day of high dose Zosyn. PHYSICAL EXAMINATION: Vital Signs: Temperature is 97.7 degrees, pulse 78, respirations 18, blood pressure 167/81. General: This is a fairly healthy-appearing, middle-aged female. She is in no acute distress. The patient looks much better as mentioned above. She is not having any significant abdominal pain and would very much like to go home. Lungs: Clear to auscultation. Cardiovascular: Regular heart rate. Abdomen: Soft and minimally tender. The patient's incision is intact. The patient's drain has been pulled earlier today by Dr. Frances. LAB AND X-RAY: The patient's CBC today shows a white count of 9180, hemoglobin 10.9, and platelet count 424,000. Creatinine is 0.6. GFR is greater than 60. Liver function studies are normal. Culture of the abdominal drainage showed no growth. ASSESSMENT AND PLAN: The plan is as per Dr. Frances and after discussing with the patient and Dr. Mason, to send the patient home today on a combination of Augmentin and Cipro. The Augmentin is 875 mg by mouth twice a day for 7 days and the Cipro is 500 mg by mouth twice a day for 1 week also. Also, I have ordered that the patient's peripherally inserted central catheter should be pulled. The patient will have followup in [address] Cross. I am available to see the patient on a as needed basis. COMORBIDITIES: She is elderly and diabetic. cc: Jerry Payton MD
== END 2016-09-28 11:54 | disposition home or self-care (01) ==
LOC: ED 15:11 → SUATTDRO 22:10 → 4N 22:10
PROVIDERS: ATTEND Internal Medicine

== ENCOUNTER 2019-05-07 07:56 | Inpatient (IN) ==
[2019-05-07] MEDS ORDERED: ZOFRAN IV ONE ×2 (08:23→12:35)
[2019-05-07] MEDS ORDERED: MORPHINE IV ONE (08:23)
[2019-05-07] MEDS ORDERED: DUONEB (A & A) INH ONE (08:23)
[2019-05-07] MEDS ORDERED: NS 1,000 ML IV ONE (08:23)
--- NOTE | 2019-05-07 08:42 | Diag Imaging Result Doc PS360 ---
EXAM: CHEST-2 VIEWS 05/07/2019 HISTORY: short of breath TECHNIQUE: PA and lateral chest COMMENT: The right upper lobe mass is again noted. There has been no appreciable change since 05/02/2019. IMPRESSION: Right upper lobe mass and probable postobstructive pneumonia. Electronically signed by Daniel Dominguez 05/07/2019 8:40 AM
[2019-05-07 09:29] LABS: ALLEN TEST YES; BE 8.2 mmoll (-3.0-3.0); BLOOD TYPE ARTERIAL; HCO3-(ACT) 31.2 mmoll (20.0-26.0); METHB 1.1 % (0.0-1.5); O2HB 93.9 % (95.0-99.0); PCO2(98.6) 44 mmHg (35-45); PO2(98.6) 70 mmHg (60-100); SAMPLE BLOOD; SAO2 97.2 % (95.0-100.0); THB 14.4 g/dL (11.5-17.4); pH(98.6) 7.48 (7.35-7.45)
[2019-05-07 09:31] LABS: MODALITY ROOM AIR
[2019-05-07 10:05] LABS: BASO# 0.02 X1000 (0.0-0.2); BASO% 0.1 % (0.0-0.8); EOS# 0.08 X1000 (0.0-0.7); EOS% 0.6 % (0.0-10.0); HEMATOCRIT 39.9 % (37.0-47.0); HEMOGLOBIN 14.5 g/dL (12.0-16.0); IMM GRAN# 0.07 X1000 (0.0-0.04); IMM GRAN% 0.5 % (0.0-0.5); LYMPH# 1.34 X1000 (1.2-3.4); LYMPH% 9.5 % (20.5-51.1); MCH 27.2 PG (27-31); MCHC 36.3 g/dL (33-37); MCV 74.9 FL (81-99); MONO# 0.89 X1000 (0.11-0.59); MONO% 6.3 % (1.7-9.3); MPV 8.4 FL (7.4-10.4); NEUT# 11.71 X1000 (1.4-6.5); PLT 583 X1000 (130-400); RBC 5.33 XMIL (4.2-5.4); RDW 13.7 % (11.5-14.5); WBC 14.11 X1000 (4.8-10.8)
[2019-05-07 10:06] LABS: INR 1.03; PROTIME 13.6 Seconds (11.0-16.0)
[2019-05-07 10:07] LABS: PTT 33.1 Seconds (22.3-41.8)
[2019-05-07 10:25] LABS: CK PROFILE 276 U/L (24-173)
[2019-05-07 10:37] LABS: ESTIMATED GFR > 60
[2019-05-07] MEDS ORDERED: VANCOMYCIN 1 GM/NS 1 GM/250 ML IVPB IV ONE (10:41)
[2019-05-07] MEDS ORDERED: LEVAQUIN 750 MG/D5W 750 MG/150 ML IVPB IV ONE (10:41)
[2019-05-07 10:47] LABS: SODIUM 117 mmol/L (136-145)
[2019-05-07 10:48] LABS: ALB/GLOB RATIO 1.6; ALBUMIN 4.4 g/dL (3.5-5.0); ALKALINE PHOSPHATASE 120 U/L (32-104); BUN 18 mg/dL (8-22); CALCIUM 9.4 mg/dL (8.8-10.2); CHLORIDE 71 mmol/L (98-107); CREATININE 0.7 mg/dL (0.5-0.9); GLUCOSE 177 mg/dL (70-104); GOT 45 U/L (10-30); GPT 49 U/L (10-36); POTASSIUM 3.3 mmol/L (3.5-5.1); TCO2 30 mmol/L (25-35); TOTAL BILIRUBIN 1.29 mg/dL (0.20-1.00); TOTAL PROTEIN 7.2 g/dL (6.3-8.3)
[2019-05-07 10:58] LABS: AGAP 16
[2019-05-07 10:59] LABS: COSMO 243
[2019-05-07 11:06] LABS: CK INDEX 3.9 (0.0-2.5)
--- NOTE | 2019-05-07 11:10 | PROVIDER DOCUMENTATION ---
This chart was entered by Kanwal Calderon Scribe, acting as scribe for Curtis Nuñez MD. HPI-General Adult - General Chief Complaint: Shortness of Breath Stated Complaint: SOB,MASS ON LUNG,VOMITING,BACK PAIN Time Seen by Provider: 05/07/19 08:07 Source: patient, family () Allergies/Adverse Reactions: Patient Allergies Allergy/AdvReac Type Severity Reaction Status Date / Time codeine AdvReac NAUSEA/VOMI Verified 05/07/19 09:15 TING Home Medications: Home Medication List Medication Instructions Recorded Confirmed Last Taken Type Calcium Citrate/Vitamin D 1 each PO DAILY 09/14/16 05/07/19 05/06/19 History [Citracal + D] Metformin [Glucophage] 500 mg PO DAILY 09/14/16 05/07/19 05/07/19 History Valsartan/Hydrochlorothiazide 1 each PO DAILY 09/14/16 05/07/19 05/07/19 History [Valsartan-Hctz 160-25 mg Tab] Albuterol Sulfate [Albuterol 2 puff INH Q4-6H PRN PRN 05/07/19 05/07/19 05/06/19 History Sulfate Hfa] Budesonide/Formoterol Fumarate 2 puff INH BID 05/07/19 05/07/19 05/06/19 History [Symbicort 160-4.5 Mcg Inhaler] Sitagliptin Phosphate [Januvia] 1 tab PO DAILY 05/07/19 05/07/19 05/07/19 History - History of Present Illness -Gen Adult Nature of Presenting Problems: 69 y/o female presents to the ED with multiple complaints including 1 week h/o productive cough with yellow/black/brown sputum, hemoptysis x 1, SOB, nausea, vomiting, increasing weakness, and right scapular pain. is concerned about increasing weakness and not eating as well as possible dehydration. The patient has seen her PCP several times as well as Dr. Edwards for recent new diagnosis of right upper lobe lung mass. Denies fever and chills. Location of Pain/Injury: reports: generalized, other (right scapula) Onset/Duration: reports: 1 week ago Timing: reports: getting worse Associated Symptoms: reports: cough (productive), nausea, shortness of breath, vomiting, weakness, other (right scapular pain) Similar Symptoms Previously?: Yes Recently seen or treated by another doctor?: Yes (PCP and Dr. Edwards ) Review of Systems - Adult - REVIEW OF SYSTEMS - ADULT Constitutional: reports: other (generalized weakness). denies: chills, fever Eyes: reports: no symptoms reported Ears, Nose, Mouth & Throat: reports: no symptoms reported Cardiovascular: reports: no symptoms reported Respiratory: reports: cough (productive), hemoptysis (x1), shortness of breath Gastrointestinal: reports: nausea, poor appetite, vomiting Genitourinary: reports: no symptoms reported Musculoskeletal: reports: other (right scapular pain) Integumentary: reports: no symptoms reported Neurological: reports: no symptoms reported Psychiatric: reports: no symptoms reported Endocrine: reports: no symptoms reported Hematologic/Lymphatic: reports: no symptoms reported Allergic/Immunologic: reports: no symptoms reported All Other Systems: Reviewed and Negative Past History - Adult - PAST MEDICAL HISTORY-ADULT Review of Records: reports: Old Records Reviewed, Nursing Assessment Review, Medications Reviewed Major Childhood Illnesses: reports: denies history Cardiovascular: reports: HTN Respiratory: reports: denies history Gastrointestinal: reports: denies history Neurological: reports: denies history Psychiatric: reports: denies history Endocrine/Immune: reports: Diabetes - IMMUNIZATION STATUS Childhood Immunizations: See Nurse Assessment Flu Vaccine: See Nurse Assessment - SOCIAL HISTORY Smoking: other (former smoker) Living Situation: family Physical Exam-General - PHYSICAL EXAM-ADULT Initial Vital Signs Reviewed: Yes - CONSTITUTIONAL General Appearance: appears well, alert - HEAD, EARS, NOSE, MOUTH & THROAT HENMT: negative: moist mucous membranes - RESPIRATORY Respiratory: no respiratory distress, wheezing (expiratory) - CARDIOVASCULAR Cardiovascular: regular rate, rhythm, no gallop, no murmur - SKIN Integumentary: pallor, other (decreased turgor). negative: normal color, normal turgor - NEUROLOGIC Neurologic: grossly normal Progress - PLAN OF CARE/RESULTS Progress/Plan/Lab Results: Vital Signs - 8 hr 05/07/19 08:05 Temperature 97.5 F L Pulse Rate 97 H Respiratory Rate 18 Blood Pressure 145/83 O2 Sat by Pulse Oximetry 93 L 05/07/19 09:22 Influenza Screen - Final Nasopharyngeal Laboratory Results - last 24 hr 05/07/19 09:20 Specimen Type ARTERIAL Sample Site R RADIAL pH 7.48 H pCO2 44 pO2 70 HCO3 31.2 H Base Excess 8.2 H Oxyhemoglobin 93.9 L ABG O2 Sat (Calculated) 19.0 ABG O2 Saturation 97.2 ABG Carboxyhemoglobin 2.40 ABG Methemoglobin 1.1 Zuhair Test YES A-a O2 Difference 25.0 Total Hemoglobin 14.4 Lactate 1.60 Blood Gas Modality ROOM AIR FiO2 % 21.0 Orders Category Date Time Status Nursing- Obtain EKG once Care 05/07/19 08:22 Active Saline Loc NOW Care 05/07/19 08:22 Active CHEST-2 VIEWS [RAD] Stat Exams 05/07/19 08:23 Completed ABG [RESP] Routine Lab 05/07/19 09:20 Completed BLOOD CULTURE [BLDCUL] Stat Lab 05/07/19 09:20 Received CBC WITH ELECTRONIC DIFF [HEME] Stat Lab 05/07/19 09:22 Results CK PROFILE [SP CHEM] Stat Lab 05/07/19 09:22 Received COMPREHENSIVE METABOLIC PANEL [CHEM] Stat Lab 05/07/19 09:22 Received INFLUENZA SCREEN A/B Stat Lab 05/07/19 09:22 Completed LACTATE, PLASMA [CHEM] Stat Lab 05/07/19 09:22 Received MAGNESIUM [CHEM] Stat Lab 05/07/19 09:22 Received PRO B-NATRIURETIC PEPTIDE Stat Lab 05/07/19 09:22 Received PROTIME WITH INR [COAG] Stat Lab 05/07/19 09:22 Received PTT [COAG] Stat Lab 05/07/19 09:22 Received TROPONIN T Stat Lab 05/07/19 09:22 Received URINALYSIS W/POSS RFLX CULT [URINALYSIS] Stat Lab 05/07/19 08:23 Uncollected 0.9% Sodium Chloride Inj [Ns] 1,000 ml Med 05/07/19 08:23 Discontinued IV 999 mls/hr Albuterol 2.5MG/Ipratrop 0.5MG [Duoneb (A & A)] Med 05/07/19 08:23 Discontinued 3 ml INH NOW ONE Morphine Med 05/07/19 08:23 Discontinued 4 mg IV NOW ONE Ondansetron [Zofran] Med 05/07/19 08:23 Discontinued 4 mg IV NOW ONE Aerosol Treatments Routine Oth 05/07/19 08:23 Active Aerosol Treatments Stat Oth 01/05/20 08:23 Active EKG [EKG] Stat Ther 05/07/19 08:22 Ordered EKG [EKG] Stat Ther 05/07/19 08:23 Ordered Result Diagrams: 05/07/19 09:22 05/07/19 09:22 - REASSESSMENT Reassessment #1 Time Reassessed: 11:08 Status: improving (Better after meds. Patient has 2 SIRS criteria and sepsis, but not severe sepsis or septic shock. Given Vanc/Levaquin. Also has severe hyponatremia.) - EKG 1 Time of EKG reading by physician:: 08:09 EKG Read and Signed by:: Curtis Nuñez EKG Interpretation (*Must complete 3 of following elements*): Abnormal Rate: 97 Rhythm: NSR Comments: OAWMI slightly changed since 05/02/19, left atrial enlargemen, No STEMI - CONSULTS/PCP/HOSPITALIST Notification #1 *Consult/PCP/Hospitalist*: Ciara Cowanist Time Discussed: 10:50 Reason/Comments: right upper lobe lung mass Consult Disposition: other (consult [place]) Departure - Departure Date of Disposition Decision: 05/07/19 Time of Disposition Decision: 11:09 DIAGNOSIS: Mass of upper lobe of right lung, Hyponatremia syndrome Right upper lobe pneumonia Qualifiers: Pneumonia type: due to unspecified organism Qualified Code(s): J18.1 - Lobar pneumonia, unspecified organism Sepsis without acute organ dysfunction Qualifiers: Sepsis type: sepsis due to unspecified organism Qualified Code(s): A41.9 - Sepsis, unspecified organism Disposition: ADMITTED INPATIENT 09 Certified Medical Emergency: Emergent Condition: Fair Referrals and Follow-Ups: Mani Sarabia MD [Primary Care Provider] - - Critical Care Note This patient required my direct & personal management of CC.: Yes Total Time (mins): 35 Critical Care Statement: This patient required my direct personal management to treat or rule out processes, the absence of which, could potentiallly result in sudden, clinically significant life or limb threatening deterioration. Attestation - Physician/ ANNA Attestation Patient care was provided by Advanced Practice Provider:: No The physician spent face to face time with patient:: Yes Advanced Practice Provider documentation review:: Supervising physician onsite and consulted in the evaluation and care of this patient. The physician did have a face to face encounter with the patient. This chart was documented by the indicated scribe, (Kanwal Calderon, Sarika) and accurately reflects the services I performed and decisions made by me, Curtis Nuñez MD, as attested by the provider's signature.
[2019-05-07] MEDS ORDERED: NS 1,000 ML IV SCH (11:19)
[2019-05-07 11:30] LABS: URINE SOURCE CATH
[2019-05-07] MEDS ORDERED: DUONEB (A & A) INH SCH (11:30)
[2019-05-07 11:40] LABS: UR EPITHELIAL CELLS <10 /HPF (<10); URINE BACTERIA NEGATIVE /HPF; URINE RBC <10 /HPF (<10); URINE WBC <10 /HPF (<10)
--- NOTE | 2019-05-07 12:16 | PROVIDER PROGRESS NOTE ---
Progress Note Pulmonary, Full consult to follow Known to our office. Was planned for CT biopsy as out patient Minor hemoptysis Lung mass likely cancer Pneumonia Hyponatremia maybe Ca related Dehydration Case seen and EMR, labs, meds reviewed Discussed case with SHERICE Brooks and patient son. I spent 32 minutes in this evaluation. Full consult to follow
[2019-05-07 12:17] LABS: COLOR YELLOW; GLUCOSE URINE NEGATIVE (NEGATIVE); TURBIDITY URINE CLEAR (CLEAR)
[2019-05-07 12:18] LABS: BILIRUBIN URINE SMALL (NEGATIVE); BLOOD URINE NEGATIVE (NEGATIVE); KETONE URINE 20 mg/dL (NEGATIVE); LEUKOCYTES URINE NEGATIVE (NEGATIVE); NITRITE URINE NEGATIVE (NEGATIVE); PH URINE 6.5; PROTEIN URINE 30 mg/dL (NEGATIVE); UROBILINOGEN URINE NORMAL (NORMAL)
[2019-05-07] MEDS ORDERED: MORPHINE IV PRN (12:19)
--- NOTE | 2019-05-07 13:07 | HISTORY AND PHYSICAL ---
PRIMARY CARE PROVIDER: Dr. Mani Sarabia. SLOT SHIFT SUPERVISOR: Dr. Edwards. ONCOLOGIST: Dr. Padilla. CHIEF COMPLAINT: Shortness of breath with productive cough but denies fever. HISTORY OF PRESENT ILLNESS: Ms. Aline Thapa is a 69-year-old, female with a medical history of diabetes mellitus type 2, hypertension, brain aneurysm with coiling, and most recently diagnosed with COPD. Used to be a very heavy smoker, 3 pack per day smoker until 2007. States that about 3 weeks before [place], she was having upper respiratory symptoms. Went to her primary care provider who provided her with antibiotic therapy. That did not improve and went back to the primary care provider, with another round of antibiotics which also still did not improve. She presented here on where they did a CT of the chest which showed the large right upper lobe mediastinal mass with extensive adenopathy including the right supraclavicular region and probable metastatic disease to the right lobe of the liver. She saw Dr. Edwards this past , was diagnosed with COPD, given some inhalers, and then came in today as she was having right back pain, some nausea, more shortness of breath, productive phlegm. However, denied fever. She also felt like she was a little more weak. No appetite, not drinking good. She has had about a 20 pound weight loss since all of this has been going on. Now, imaging reveals that she has a postobstructive pneumonia on the right so we are going to admit her and treat her for that, and consult Dr. Padilla. PAST MEDICAL HISTORY: 1. Diabetes mellitus type 2. 2. Hypertension. 3. Brain aneurysm with coiling in 2007. 4. Diverticulosis. 5. Recent diagnosis of COPD. PAST SURGICAL HISTORY: 1. Cholecystectomy. 2. Cerebral aneurysm coiling in [place] in 2007. 3. Colon resection due to diverticulitis. SOCIAL HISTORY: She was a heavy, 3 pack per day smoker since the age of 23. She quit in the year 2007. No alcohol. No illicit drug use. Lives at home with her . FAMILY HISTORY: Mother had breast cancer and pancreatic cancer. Father was healthy. ALLERGIES: Codeine. HOME MEDICATIONS: 1. Albuterol 2 puffs inhaled every 4 to 6 hours p.r.n. 2. Citracal Plus D 1 tablet p.o. daily. 3. Metformin 500 mg p.o. daily. 4. Januvia 100 mg p.o. daily. 5. Symbicort 160/4.5 two puffs inhaled twice daily. 6. Valsartan/hydrochlorothiazide 160/25 one tablet p.o. daily. REVIEW OF SYSTEMS: Fourteen point review of systems are complete. All were negative except for those mentioned above in the HPI. PHYSICAL EXAMINATION: VITAL SIGNS: Temperature 97.5 degrees, heart rate 89, respiratory rate 15, blood pressure 153/96, O2 saturation 100% on room air. GENERAL: Ms. Aline Thapa is a 69-year-old, female. She is in no acute distress. She is able to answer questions appropriately. HEENT: Atraumatic, normocephalic. Pupils equal, round, reactive to light. Extraocular movements intact. Mucous membranes are dry. NECK: Tracheal midline. CARDIOVASCULAR: S1, S2. Regular rate and rhythm. No rubs, gallops, or murmurs. No lower extremity edema. There are +2 dorsalis and radial pulses. Negative for JVD or carotid bruits. PULMONARY: Clear to auscultate bilateral breath sounds, decreased in the right base. No accessory muscle use or work of breathing noted. GI: Soft. Mild tenderness in the left lower quadrant. Positive bowel sounds x4. EXTREMITIES: Moves all extremities equally. Full range of motion. NEUROLOGIC: A and O x3. Follows commands. Sensory is intact. SKIN: Warm, dry, intact. LABORATORY DATA: White blood cells 14,000, hemoglobin 14, hematocrit 39, platelet count 583,000. INR is 1.03, PTT is 33.1. ABGs on room air, pH 7.48, pCO2 of 44, PO2 of 70, bicarb 31, base excess 8.2, saturation 93%. Lactate 1.6. Sodium 117, potassium 3.3, BUN 18, creatinine 0.7, glucose 177, calcium 9.4, magnesium 2.0. Bilirubin is 1.29, AST 45, ALT 49. CK 276, index 3.9, MB is 10.7, troponin is less than 0.01. ProBNP is 48. Albumin 4.4. Urinalysis still pending but is negative for bacteria. IMAGING: Chest x-ray, right upper lobe mass and probable postobstructive pneumonia. ASSESSMENT AND PLAN: 1. Postobstructive pneumonia on the right. Antibiotics include Levaquin and she also received a 1 time dose of vancomycin but we will continue with Levaquin for now. 2. Right shoulder pain and back pain secondary to the mass. We will do as needed morphine. 3. Right upper lobe mediastinal mass. Dr. Padilla consulted and Dr. Edwards. 4. Recent diagnosis of chronic obstructive pulmonary disease. No obvious exacerbation. Dr. Edwards will be on board. 5. Diabetes mellitus type 2. We will do pattern blood glucoses and sliding scale insulin. 6. Hypertension. Continue home medications. 7. History of brain aneurysm. 8. Constipation. Last bowel movement 2 days ago. We will do an abdominal x- ray. We will add Melissa-Colace since she is going to be on pain medication. 9. Deep venous thrombosis prophylaxis. Sequential compression devices. 10. Hyponatremia: Likely due to poor oral intake, use of HCTZ vs related to lung mass. Follow up with urine lytes. Start IV fluids. Dictated by SHERICE Larkin for Deny Quezada MD cc: SHERICE Larkin MD I agree with most components of history, physical, assessment and plan. A separate addendum has been dictated. SOPHY
[2019-05-07] MEDS ORDERED: TYLENOL PO PRN (13:17)
[2019-05-07] MEDS ORDERED: DIOVAN PO ONE ×2 (13:23→17:30)
--- NOTE | 2019-05-07 13:31 | HEMO/ONC CONSULTATION ---
DATE: 05/07/2019 REASON FOR CONSULTATION: Lung mass. HISTORY OF PRESENT ILLNESS: This patient came to the ER today with multiple complaints of 1 week of productive cough with yellow, black, brown, and hemoptysis, shortness of breath, nausea and vomiting, increasing weakness, right scapular pain, and not eating or drinking much. The patient was seen in the ER on 05/02/2019 with complaint of back pain and shortness of breath that worsened with exertion. At that time, she was diagnosed with a large right upper lobe mediastinal mass with extensive adenopathy, and probable mets to the right lobe of the liver. The patient was discharged home to follow up with Pulmonology. The patient states they did have an appointment with a flight engineer, but has not had any further scans or studies. The patient's chest x-ray today continues to show right upper lobe mass, as well as probable postobstructive pneumonia. Patient also shown to have hyponatremia with a sodium level of 117. She is very nauseated. The says she does not vomit very much, but when she does try to eat or drink a little bit, she vomits it back up with phlegm. The patient does not feel well, and she continues to have right upper pain as she describes behind her shoulder blade. She is currently being admitted to the Hospitalist Service. PAST MEDICAL HISTORY: Includes high blood pressure, diabetes mellitus type 2. SOCIAL HISTORY: The patient denies alcohol, smoking, or illicit drug use. ALLERGIES: Codeine. HOME MEDICATIONS: Citracal with D3 two a day, Januvia 100 mg 1 a day, metformin HCL ER 500 mg 1 a day, valsartan/hydrochlorothiazide 100/25 mg 1 a day. Most recently placed on, by Dr. Edwards, albuterol HFA 2 puffs every 4 to 6 hours as needed, and Symbicort 160/4.5 mcg 2 puffs 2 times a day. PHYSICAL EXAMINATION: Vital Signs: Temperature 97.5 degrees, pulse rate 89, respiratory rate 29, blood pressure 153/96, O2 saturation 100% on room air. She is in 3/10 back and right shoulder pain. General: The patient is in no acute distress, but she does not appear comfortable. She claims that she is nauseated. HEENT: Sclerae anicteric. PERRLA. Conjunctivae pale. Oral mucosa normal. Cardiovascular: Normal S1, S2. Heart rate and rhythm regular. Respiratory: Lung sounds are clear to auscultation. Normal respiratory effort. Skin: The patient is pale, decreased skin turgor, otherwise intact. No ecchymosis, petechiae, or rashes noted to exposed skin. Neurological: Alert and oriented. The patient states she is off balance and dizzy if she stands. She follows commands well. Able to move all extremities at will. LABORATORY DATA: WBCs 14.11, hemoglobin 14.5, hematocrit 39.9, platelet count 583,000, ANC 11.71. Sodium 117, potassium 3.3, creatinine 0.7. Total bilirubin 1.29, AST 45, ALT 49, alkaline phosphatase 120. RADIOLOGY: Chest x-ray from this morning shows right upper lobe mass and probable postobstructive pneumonia. Chest CT from 05/02/2019 shows large right upper lobe/mediastinal mass with extensive adenopathy, including the right supraclavicular region. Probable metastasis in the right lobe of the liver. ASSESSMENT AND PLAN: 1. Hyponatremia. This is a probable cause of the patient's nausea and vomiting. Today, we would prefer gentle hydration. It is noted that the emergency room has already given her a bolus of 1 liter of intravenous fluids. Continue intravenous fluids the rest of the day at 75 mL an hour. SIADH is a possibility also. The patient has obtained a chest x-ray, and there is an abdominal x-ray ordered. 2. Right upper lung/mediastinal mass with extensive adenopathy and probable right lobe liver metastasis. The patient will need an outpatient PET scan. At this time, we will do a CT abdomen and pelvis tomorrow. Again, we would like her to be hydrated today. We will do the CT scan tomorrow, 05/08/2019. Plan biopsy of maybe the liver accordingly. We will follow up with the patient outpatient when she recovers from her medical stay at this time. 3. Electrolyte abnormalities. It is also noted that the patient's potassium is decreased. Replete per protocol. 4. Deep venous thrombosis prophylaxis. Please consider placing the patient on sequential compression devices or Lovenox for deep venous thrombosis prophylaxis. 5. Nutrition when the patient's nausea is resolved, she will need protein shakes to augment her calories and protein. 6. Nausea and vomiting. Please keep the patient on Zofran [id number] at this time while she is nauseated. Encourage her to eat and drink. Dictated by SHERICE Clemente for Sav Padilla MD Patient seen and examined.As above. patient admitted with lung mass, mediastinal lymphadenopathy and liver lesion noted on CT scan of the chest. Plan for CT of the abdomen and pelvis. Based on that we will consider biopsying least risk area. From her nausea standpoint, proceed with Reglan and Zofran [id number]. If this does not improve, consider scanning her brain for brain metastasis. From her hyponatremia standpoint, trying normal saline. SIADH is in the differential diagnosis. Thank you. Will follow with you. Sav Padilla M.D.' cc: Sav Padilla MD [facility]
--- NOTE | 2019-05-07 13:35 | Diag Imaging Result Doc PS360 ---
EXAM: ABDOMEN FLAT/UPRIGHT 05/07/2019 HISTORY: abd pain TECHNIQUE: Flat and upright abdomen COMMENT: There is gas in the transverse colon and stomach without evidence of dilatation. The small bowel is not distended. There is no evidence of organomegaly or mass. There is extensive calcification in the aorta and iliac arteries. IMPRESSION: No evidence of acute disease. Nonspecific abdomen. Electronically signed by Daniel Dominguez 05/07/2019 1:32 PM
--- NOTE | 2019-05-07 14:18 | HISTORY AND PHYSICAL ---
ADDENDUM: I agree with most components of the history, physical, assessment, and plan. In brief, Ms. Thapa is a 69-year-old, lady with a past medical history of a right hilar mass diagnosed recently, being followed up outpatient by pulmonology and oncology, essential hypertension, noninsulin-dependent diabetes mellitus, COPD, who comes in with chief complaints of weakness, subjective feelings of shortness of breath, yellowish sputum production, and one episode of hemoptysis. The patient has also been having nausea and vomiting which have been progressively getting worse over the last 4 to 5 days. She has not been able to eat anything by mouth, has significant decreased oral intake, and has been feeling weak. In the emergency room, she was hemodynamically stable except hypertensive and she was found to have significant hyponatremia with a concern for postobstructive right-sided pneumonia so the hospitalist team was consulted for further management. SUBJECTIVE: At the time of my evaluation, the patient appears pretty weak. She denies any specific abdominal pain. She has not had a bowel movement in the last 3 days. She has yet to get a biopsy of her lung lesion. Her is at bedside. VITALS: Temperature of 97.5 degrees, pulse 85, respiratory rate 29, blood pressure 150/90, saturating 100% on room air. PHYSICAL EXAMINATION: Appears weak. She has pharyngeal congestion. She has decreased air entry on the right supramammary and inframammary region. No wheeze, rhonchi, or crackles. Adequate air entry on the left hemithorax. Abdomen is soft. Mild tenderness in the right upper quadrant. Active bowel sounds. No lower extremity edema. She also has some tenderness focally at the right shoulder blade. LABS: Suggestive of leukocytosis, hyponatremia, hypochloremia, hypokalemia, normal kidney function, transaminitis. Blood culture and urine culture are in lab. Influenza screen was negative. ASSESSMENT AND PLAN: 1. Weakness in the setting of decreased oral intake and clinical volume depletion. 2. Right lung postobstructive pneumonia based on history of hemoptysis with sputum production, subjective feeling of shortness of breath, and leukocytosis. 3. Hyponatremia, hypochloremia, and hypokalemia, acute to subacute based on her recent lab tests available in the system. 4. Right lung mass with suspicious liver lesion. 5. Prior history of 2 pack per day smoking history for about 30 years which she quit around the year 2004 and h/o COPD not in exacerbation. 6. Constipation. PLAN: I will follow up with urine sodium, urine osmolality. Start patient on intravenous fluids considering her hyponatremia does not look chronic. I will also start her on intravenous levofloxacin. Follow up with blood culture and sputum culture results. I will resume valsartan as her antihypertensive medication and I am holding her hydrochlorothiazide which could contribute to hyponatremia. Pulmonology and oncology would be consulted. DISPOSITION: Monitor patient on medical floor. Plan of care discussed with the patient and her . All of their questions have been satisfactorily answered. cc: Deny Qeuzada MD MTDD
[2019-05-07] MEDS: MORPHINE IV PRN (14:37)
[2019-05-07] MEDS ORDERED: APRESOLINE IV PRN (15:32)
[2019-05-07] MEDS: POTASSIUM CHLORIDE 20 MEQ/SWI 20 MEQ/100 ML IVPB IV SCH ×2 (15:49→18:18)
[2019-05-07] MEDS: HUMULIN R SUBQ SCH ×2 (17:23→22:07)
--- NOTE | 2019-05-07 17:40 | EKG Report ---
Test Performed on : 05/07/2019 08:06:12 AM Test Reason : SOB Blood Pressure : / mmHG Vent. Rate : 097 BPM Atrial Rate : 097 BPM P-R Int : 142 ms QRS Dur : 082 ms QT Int : 370 ms P-R-T Axes : 070 027 086 degrees QTc Int : 469 ms Normal sinus rhythm. Possible Left atrial enlargement Anterior infarct , age undetermined Abnormal ECG When compared with ECG of 02-MAY-2019 08:38, (Unconfirmed) Anterior infarct is now present Unconfirmed Result
[2019-05-07] MEDS: LOVENOX SUBQ SCH (18:12)
[2019-05-07] MEDS: PULMICORT INH SCH (19:30)
[2019-05-07] MEDS ORDERED: MUCOMYST 20% INH SCH (19:30)
[2019-05-07] MEDS: DUONEB (A & A) INH PRN (19:30)
[2019-05-07 20:03] LABS: AGAP 19; BUN 13 mg/dL (8-22); CALCIUM 8.5 mg/dL (8.8-10.2); CHLORIDE 78 mmol/L (98-107); COSMO 243; CREATININE 0.6 mg/dL (0.5-0.9); ESTIMATED GFR > 60; GLUCOSE 141 mg/dL (70-104); POTASSIUM 3.1 mmol/L (3.5-5.1); SODIUM 119 mmol/L (136-145); TCO2 22 mmol/L (25-35)
[2019-05-07] MEDS: LIDODERM TOP SCH (22:05)
[2019-05-07] MEDS: DULCOLAX PR SCH (22:06)
[2019-05-07] MEDS: PERICOLACE PO SCH (22:06)
[2019-05-07] MEDS: NS 1,000 ML IV SCH (22:07)
--- NOTE | 2019-05-07 22:23 | CONSULTATION ---
DATE OF CONSULTATION: 05/07/2019 CHIEF COMPLAINT: Shortness of breath and cough. HISTORY OF PRESENT ILLNESS: This is a 69-year-old female with a medical history of diabetes mellitus type 2, hypertension, brain aneurysm with coiling and recent diagnosis of COPD. She recently had a CT scan of the chest that revealed a large right upper lobe mediastinal mass with extensive adenopathy including the right supraclavicular region and probable metastatic disease to the right lobe of the liver. Now, chest x-ray reveals probable postobstructive pneumonia. PAST MEDICAL HISTORY: 1. Diabetes mellitus type 2. 2. Hypertension. 3. Brain aneurysm with coiling in 2007. 4. Diverticulosis. 5. Recent diagnosis of COPD. PAST SURGICAL HISTORY: 1. Cholecystectomy. 2. Cerebral aneurysm coiling. 3. Colon resection due to diverticulitis. SOCIAL HISTORY: Ex-smoker 3 pack per day since the age of 23. She quit in 2007. Denies alcohol or illicit drug use. Lives at home with her . FAMILY HISTORY: Mother with breast cancer and pancreatic cancer. Father was healthy. ALLERGIES: Codeine. HOME MEDICATIONS: Please see home reconciliation list. REVIEW OF SYSTEMS: A 10-point review of systems was obtained and the pertinent is listed in the HPI, otherwise noncontributory. PHYSICAL EXAMINATION: VITAL SIGNS: Blood pressure 153/96, pulse 89, respirations 29, O2 saturation 100% on room air. GENERAL: This is a 69-year-old resting in the ER at the present time with at bedside. HEENT: Head is atraumatic, normocephalic. Pupils equal, and round and reactive to light and accommodation. NECK: Trachea midline. Neck is supple. CARDIOVASCULAR: S1, S2 auscultated. Regular rate and rhythm. No gallops, rubs or murmurs. PULMONARY: Breath sounds clear to auscultation, decreased on the right base, nonlabored. GASTROINTESTINAL: Soft, mild tenderness in the left lower quadrant. Positive bowel sounds times 4. NEUROLOGIC: Alert and oriented times 3. SKIN: Warm, dry, intact. LABORATORY DATA: White blood cells 14.11. Platelets 583,000. Sodium 117. Potassium 3.3. Chloride 71. ABGs on room air of 7.48, pCO2 of 44, PO2 of 70, bicarbonate 31, base excess 93.9. ProBNP 48. Albumin 4.4. IMAGING: Chest x-ray: Right upper lobe mass and probable postobstructive pneumonia. ASSESSMENT AND PLAN: 1. Probable postobstructive pneumonia, minor hemoptysis. Continue antibiotics, and bronchodilators and supplemental oxygen as needed. 2. Lung mass, likely cancer. Dr. Padilla following. 3. Hyponatremia, may be cancer related. 4. Volume depletion. We will replenish with IV supplementation. Thank you for the courtesy of this consult. Dictated by SHERICE Messer for Matt Edwards MD cc: SHERICE Messer MD
[2019-05-08] MEDS: NS 1,000 ML IV SCH ×3 (02:00→17:23)
[2019-05-08] MEDS: MORPHINE IV PRN (05:07)
[2019-05-08] MEDS: HUMULIN R SUBQ SCH ×4 (06:15→21:12)
[2019-05-08 08:06] LABS: BASO# 0.02 X1000 (0.0-0.2); BASO% 0.1 % (0.0-0.8); EOS# 0.05 X1000 (0.0-0.7); EOS% 0.3 % (0.0-10.0); HEMOGLOBIN 13.6 g/dL (12.0-16.0); IMM GRAN# 0.11 X1000 (0.0-0.04); IMM GRAN% 0.8 % (0.0-0.5); LYMPH# 1.63 X1000 (1.2-3.4); LYMPH% 11.2 % (20.5-51.1); MCH 27.2 PG (27-31); MCHC 34.9 g/dL (33-37); MONO# 1.56 X1000 (0.11-0.59); MONO% 10.7 % (1.7-9.3); MPV 8.2 FL (7.4-10.4); NEUT# 11.17 X1000 (1.4-6.5); NEUT% 76.9 % (42.2-75.2); PLT 479 X1000 (130-400); RDW 14.2 % (11.5-14.5); WBC 14.54 X1000 (4.8-10.8)
[2019-05-08] MEDS: DUONEB (A & A) INH PRN (08:06)
[2019-05-08] MEDS: PULMICORT INH SCH ×2 (08:06→20:18)
[2019-05-08 08:35] LABS: ESTIMATED GFR > 60
[2019-05-08 08:36] LABS: AGAP 14; ALB/GLOB RATIO 1.2; ALBUMIN 3.5 g/dL (3.5-5.0); ALKALINE PHOSPHATASE 102 U/L (32-104); BUN 10 mg/dL (8-22); CALCIUM 8.2 mg/dL (8.8-10.2); CHLORIDE 80 mmol/L (98-107); COSMO 245; CREATININE 0.6 mg/dL (0.5-0.9); GLUCOSE 132 mg/dL (70-104); GOT 33 U/L (10-30); GPT 39 U/L (10-36); POTASSIUM 3.3 mmol/L (3.5-5.1); SODIUM 121 mmol/L (136-145); TCO2 27 mmol/L (25-35); TOTAL BILIRUBIN 0.83 mg/dL (0.20-1.00); TOTAL PROTEIN 6.4 g/dL (6.3-8.3)
[2019-05-08] MEDS ORDERED: VALSARTAN PO SCH (09:00)
[2019-05-08] MEDS ORDERED: DIOVAN PO SCH (09:00)
[2019-05-08] MEDS ORDERED: HYDROCHLOROTHIAZIDE PO SCH ×2 (09:00)
--- NOTE | 2019-05-08 09:55 | Diag Imaging Result Doc PS360 ---
EXAM: CT ABD/PELVIS W/PO AND IV CON INDICATION: possible liver mets TECHNIQUE: This exam was performed using automated exposure control, adjustment of mA or kV according to patient size, and/or use of iterative reconstruction technique. COMPARISON: 09/21/2016 FINDINGS: There is a small right pleural effusion and right basilar atelectasis. There are multiple hypodense masses seen throughout the liver parenchyma including the right and left hepatic lobe that were also seen on a recent CT of the chest dated 05/02/2019. These are highly suspicious for metastatic lesions, likely from the large right upper lobe lung mass seen on the previous chest CT. For reference, one of the largest lesions is in the right hepatic lobe on image 21 of series 4 and measures up to 3.9 x 2.5 cm axially. There has been a prior cholecystectomy. The spleen, pancreas, and adrenal glands are unremarkable. Both kidneys exhibit a lobulated contour that is stable suggesting persistent lobulations or renal cortical scarring. The urinary bladder is unremarkable. There is a 3.5 cm mass at the wall of the uterus on the left that likely represents a leiomyoma. The reproductive tract is grossly unremarkable as imaged, otherwise. There is fairly extensive uncomplicated diverticulosis coli. The appendix is normal. No definite focal bowel wall thickening or bowel obstruction is identified. The remainder of the GI tract is grossly unremarkable. No new abdominal or pelvic lymphadenopathy is appreciated. There is nothing that would suggest local bony metastatic disease to the abdomen or pelvis. IMPRESSION: 1.Numerous liver masses as described that are highly suspicious for metastatic disease, assumed to be from the large right upper lobe lung mass seen on a recent CT. 2.Other incidental/nonacute findings detailed above. Electronically signed by Quang White 05/08/2019 9:52 AM
[2019-05-08] MEDS: LIDODERM TOP SCH (10:07)
[2019-05-08] MEDS: DULCOLAX PR SCH ×2 (10:07→21:13)
[2019-05-08] MEDS: DIOVAN PO SCH (10:08)
[2019-05-08] MEDS: PERICOLACE PO SCH ×2 (10:08→21:12)
[2019-05-08] MEDS: CITRACAL + D PO SCH (10:08)
[2019-05-08] MEDS: LEVAQUIN 750 MG/D5W 750 MG/150 ML IVPB IV SCH (13:19)
[2019-05-08] MEDS ORDERED: SAMSCA PO ONE (17:00)
--- NOTE | 2019-05-08 17:00 | PROVIDER PROGRESS NOTE ---
Progress Note Dr. Edwards Progress Note/Pulmonary and or critical care We appreciated progress of care, Complications, change in diagnosis, and instructions to patient under direct supervision of Dr. Edwards. Subjective: We note the level of consciousness, bed (chair) position, family presence (if any), level of lethargy, feeling of symptoms, and changes from baseline condition/symptom. The patient feels: better The patient is sitting on the chair; she is on room air and tolerates well. is at the bedside. Vital Signs: We reviewed EMR current values for Pulse rate, Blood pressure, Pulse rate, respiratory rate and Pulse oximetry. Also noted other values and trends if present (e.g. I/O, CVP). Vital Signs 05/07/19 19:30 05/07/19 20:00 05/07/19 20:56 Temperature 97.5 F L Pulse Rate 90 103 H 97 H Respiratory Rate 16 Blood Pressure 155/79 O2 Sat by Pulse Oximetry 96 100 05/08/19 04:00 05/08/19 07:51 05/08/19 08:07 Temperature 98.3 F 97.6 F Pulse Rate 106 H 99 H 106 H Respiratory Rate 20 20 Blood Pressure 179/69 154/76 O2 Sat by Pulse Oximetry 93 L 94 L 93 L 05/08/19 11:37 05/08/19 15:29 Temperature 98.1 F 98.2 F Pulse Rate 100 H 100 H Respiratory Rate 20 20 Blood Pressure 126/56 135/64 O2 Sat by Pulse Oximetry 93 L 95 Intake & Output 05/07/19 05/08/19 05/08/19 19:59 07:59 19:59 Intake Total 215 / 1240 1025 / 1240 120 / 120 Output Total 400 / 1450 1050 / 1450 750 / 750 Balance -185 / -210 -25 / -210 -630 / -630 Intake: Intake, IV Amount 165 / 1190 1025 / 1190 Intake, IVPB 50 / 50 Intake, Oral Amount 120 / 120 Output: Output, Urine Void Amount 400 / 1450 1050 / 1450 750 / 750 Other: Percent of Meal Consumed 50% Number of Bowel Movements 0 Objective: We examined the following systems General and HEENT: Trachea Midline. Pale appearing. Chest: Reduced Entry. CVS: S1 S2. Abdomen: Tender. Bowel Sounds present. Soft. Nondistended. Extremities: No pedal edema. Neuro: Weakness present. Alert. Labs and Radiology: Reviewed available labs and radiology values available at time of EMR review. Laboratory Results 05/07/19 05/07/19 05/07/19 17:06 19:07 20:31 WBC RBC Hgb Hct MCV MCH MCHC RDW Std Deviation Plt Count MPV Immature Gran % (Auto) Neut % (Auto) Lymph % (Auto) [place] % (Auto) Eos % (Auto) Baso % (Auto) Immature Gran # (Auto) Neut # (Auto) Lymph # (Auto) [place] # (Auto) Eos # (Auto) Baso # (Auto) Sodium 119 L* Potassium 3.1 L Chloride 78 L Carbon Dioxide 22 L Anion Gap 19 BUN 13 Creatinine 0.6 Estimated GFR/1.73 m2 > 60 BUN/Creatinine Ratio 22 Glucose 141 H POC Glucose 138 H 138 H Calculated Osmolality 243 Calcium 8.5 L Total Bilirubin AST ALT Alkaline Phosphatase Total Protein Albumin Globulin Albumin/Globulin Ratio Plasma Lactate Carcinoembryonic Ag Urine Osmolality Ur Random Sodium 05/07/19 05/08/19 05/08/19 23:11 05:37 07:50 WBC RBC Hgb Hct MCV MCH MCHC RDW Std Deviation Plt Count MPV Immature Gran % (Auto) Neut % (Auto) Lymph % (Auto) [place] % (Auto) Eos % (Auto) Baso % (Auto) Immature Gran # (Auto) Neut # (Auto) Lymph # (Auto) [place] # (Auto) Eos # (Auto) Baso # (Auto) Sodium 121 L Potassium 3.3 L Chloride 80 L Carbon Dioxide 27 Anion Gap 14 BUN 10 Creatinine 0.6 Estimated GFR/1.73 m2 > 60 BUN/Creatinine Ratio 17 Glucose 132 H POC Glucose 127 H Calculated Osmolality 245 Calcium 8.2 L Total Bilirubin 0.83 AST 33 H ALT 39 H Alkaline Phosphatase 102 Total Protein 6.4 Albumin 3.5 Globulin 2.9 Albumin/Globulin Ratio 1.2 Plasma Lactate 2.1 Carcinoembryonic Ag Urine Osmolality Ur Random Sodium 05/08/19 05/08/19 05/08/19 07:50 07:50 08:00 WBC 14.54 H RBC 5.00 Hgb 13.6 Hct 39.0 MCV 78.0 L MCH 27.2 MCHC 34.9 RDW Std Deviation 14.2 Plt Count 479 H MPV 8.2 Immature Gran % (Auto) 0.8 H Neut % (Auto) 76.9 H Lymph % (Auto) 11.2 L [place] % (Auto) 10.7 H Eos % (Auto) 0.3 Baso % (Auto) 0.1 Immature Gran # (Auto) 0.11 H Neut # (Auto) 11.17 H Lymph # (Auto) 1.63 [place] # (Auto) 1.56 H Eos # (Auto) 0.05 Baso # (Auto) 0.02 Sodium Potassium Chloride Carbon Dioxide Anion Gap BUN Creatinine Estimated GFR/1.73 m2 BUN/Creatinine Ratio Glucose POC Glucose Calculated Osmolality Calcium Total Bilirubin AST ALT Alkaline Phosphatase Total Protein Albumin Globulin Albumin/Globulin Ratio Plasma Lactate Carcinoembryonic Ag 1.7 Urine Osmolality 255 L Ur Random Sodium 05/08/19 05/08/19 05/08/19 08:00 10:35 15:46 WBC RBC Hgb Hct MCV MCH MCHC RDW Std Deviation Plt Count MPV Immature Gran % (Auto) Neut % (Auto) Lymph % (Auto) [place] % (Auto) Eos % (Auto) Baso % (Auto) Immature Gran # (Auto) Neut # (Auto) Lymph # (Auto) [place] # (Auto) Eos # (Auto) Baso # (Auto) Sodium Potassium Chloride Carbon Dioxide Anion Gap BUN Creatinine Estimated GFR/1.73 m2 BUN/Creatinine Ratio Glucose POC Glucose 127 H 166 H Calculated Osmolality Calcium Total Bilirubin AST ALT Alkaline Phosphatase Total Protein Albumin Globulin Albumin/Globulin Ratio Plasma Lactate Carcinoembryonic Ag Urine Osmolality Ur Random Sodium 18 Dr. Edwards evaluated and additional note below. Evaluation time in minutes: Less than 30 minutes Assessment: Pneumonia, postobstructive Lung mass, RUL mediastinal, likely cancer with liver metastasis; biopsy pending. Hemoptysis, minor: improving. Hyponatremia, likely cancer related COPD Plan Continue current treatment and supportive care per admitting and other teams on the case. Antibiotics Bronchodilators Appropriate DVT and GI prophylaxis Input was appreciated from Admitting MD and other teams on the case.
--- NOTE | 2019-05-08 17:21 | HEMO/ONC PROGRESS NOTE ---
DATE: 05/08/2019 SUBJECTIVE: The patient states she is doing very well this morning. She states that she does feel well, but she did not get a good night's sleep. Her nausea has been relieved with the use of around the clock medications. The patient had no acute events overnight. OBJECTIVE: Vital Signs: Temperature 98.2 degrees, pulse rate 100, respiratory rate 20, blood pressure 135/64, O2 saturation 95% on room air. She is in 0/10 pain. General: The patient appears in no acute distress. HEENT: Sclera is anicteric. PERRLA. Conjunctiva remains pale. Oral mucosa is slightly dry. Cardiovascular: Normal S1, S2. Heart rate and rhythm tachycardic. Respiratory: Lung sounds are decreased at the right base and she had wheezes to the right upper lung. Her left lung was clear to auscultation. Normal respiratory effort. Skin: Pale. Decreased skin turgor, otherwise intact. No ecchymosis, petechiae, or rashes noted. Neurological: Alert and oriented x3. Follows commands. Moves all extremities at will. LABORATORY: WBC 14.54, hemoglobin 13.6, hematocrit 39.0, platelet count 479,000, ANC 11.17. Sodium 121, potassium 3.3, creatinine 0.6, calcium 8.2, total bilirubin 0.83, AST 33, ALT 39, alkaline phosphatase 102. CEA 1.7. RADIOLOGY: Abdominal x-ray shows no evidence of acute disease. CT of abdomen and pelvis shows numerous liver masses highly suspicious for metastatic disease, assumed to be from the right upper lobe lung mass seen on recent CT. ASSESSMENT AND PLAN: 1. Right upper lung mediastinal mass with extensive adenopathy and probable right lobe liver metastasis. The patient will undergo a CT-guided liver biopsy tomorrow. She continues to need to be hydrated today to improve her sodium. Her CT abdomen and pelvis today shows multiple liver metastasis. We will await biopsy results to make further plans accordingly. 2. Hyponatremia. The patient's sodium has improved to 121. Continue to hydrate her with normal saline. As her sodium improves, her nausea and vomiting will most likely as well. Continue to cover her with antiemetics. SIADH is also a possibility. We will continue to monitor. 3. Deep venous thrombosis prophylaxis. The patient is on intermittent pneumatic devices on her legs. She is also free to get up and move about the room. Her Lovenox is being held tonight for her liver biopsy tomorrow. 4. Nutrition. When the patient regular diet resumes, please place her on protein shakes. 5. Nausea and vomiting. Keep the patient on Zofran and Reglan as needed for nausea, vomiting. Continue to hydrate her. Hopefully, as her sodium improves, her nausea will. Encourage her to eat and drink. If her nausea does not improve, we will consider scanning her brain for brain metastasis. Dictated by SHERICE Clemente for Sav Padilla MD cc: Sav Padilla MD MTDD
--- NOTE | 2019-05-08 18:09 | PROGRESS NOTE ---
DATE: 05/08/2019 SUBJECTIVE: Today, Mr. Thapa refers to be doing fair. The son was at the bedside at the time of the encounter. OBJECTIVE: Vital signs: Blood pressure is 135/64, pulse is 100, respirations 20, temperature is 98.2 degrees. General: Ms. Thapa is a 69-year-old female. She is in bed. No distress. Mucosa is pink and moist. Anicteric. Acyanotic. Neck: Supple. Chest: Air entry is bilaterally reduced, more so to the right upper lobe. Abdomen: Soft. Extremities: No pedal edema. Central Nervous System: The patient is awake, alert, and oriented. No focal deficit. She is however, hoarse. LABORATORY DATA: WBC is 14.54, hemoglobin is 13.6, platelet count of 479,000. Chemistry is also reviewed. Sodium is 121, rest of chemistry is unremarkable. ASSESSMENT: 1. Shortness of breath with hemoptysis secondary to right upper lobe mass, which is concerning for lung cancer in a patient with a longstanding history of tobacco use. 2. Multiple masses in the liver concerning for metastatic mass. I think patient can have a CT- guided biopsy of the liver and have both diagnosis and staging. 3. Hyponatremia. Presumed to be SIADH related to the lung malignancy, in this case small cell lung cancer will be highly likely if this is the cause of it. 4. Remote history of diverticular disease. Patient is status post sigmoid resection in 2006. 5. Generalized weakness. 6. Hoarseness most likely due to lung malignancy. 7. Suspected postobstructive pneumonia. Patient is on antimicrobial therapy. cc: Williams Ponce MD
[2019-05-09] MEDS: HUMULIN R SUBQ SCH ×4 (06:10→21:14)
[2019-05-09 08:02] LABS: INR 1.08; PROTIME 14.1 Seconds (11.0-16.0)
[2019-05-09 08:03] LABS: PTT 32.3 Seconds (22.3-41.8)
[2019-05-09 08:05] LABS: BASO# 0.02 X1000 (0.0-0.2); BASO% 0.2 % (0.0-0.8); EOS# 0.04 X1000 (0.0-0.7); EOS% 0.3 % (0.0-10.0); HEMATOCRIT 40.8 % (37.0-47.0); HEMOGLOBIN 13.9 g/dL (12.0-16.0); IMM GRAN% 0.8 % (0.0-0.5); LYMPH# 1.27 X1000 (1.2-3.4); LYMPH% 10.6 % (20.5-51.1); MCH 27.4 PG (27-31); MCHC 34.1 g/dL (33-37); MCV 80.5 FL (81-99); MONO# 1.22 X1000 (0.11-0.59); MONO% 10.2 % (1.7-9.3); MPV 8.5 FL (7.4-10.4); NEUT# 9.32 X1000 (1.4-6.5); NEUT% 77.9 % (42.2-75.2); PLT 544 X1000 (130-400); RBC 5.07 XMIL (4.2-5.4); RDW 14.6 % (11.5-14.5); WBC 11.97 X1000 (4.8-10.8)
[2019-05-09] MEDS: PULMICORT INH SCH ×2 (08:27→19:48)
[2019-05-09] MEDS: DUONEB (A & A) INH PRN ×2 (08:27→19:48)
[2019-05-09 09:15] LABS: AGAP 17; ALB/GLOB RATIO 1.1; ALBUMIN 3.7 g/dL (3.5-5.0); ALKALINE PHOSPHATASE 118 U/L (32-104); BUN 9 mg/dL (8-22); CALCIUM 9.6 mg/dL (8.8-10.2); CHLORIDE 90 mmol/L (98-107); COSMO 271; CREATININE 0.6 mg/dL (0.5-0.9); ESTIMATED GFR > 60; GLUCOSE 167 mg/dL (70-104); GOT 35 U/L (10-30); GPT 35 U/L (10-36); POTASSIUM 3.5 mmol/L (3.5-5.1); SODIUM 134 mmol/L (136-145); TCO2 27 mmol/L (25-35); TOTAL BILIRUBIN 0.64 mg/dL (0.20-1.00)
[2019-05-09] MEDS: LIDODERM TOP SCH (10:53)
[2019-05-09] MEDS: CITRACAL + D PO SCH (10:53)
[2019-05-09] MEDS: DIOVAN PO SCH (10:54)
[2019-05-09] MEDS: DULCOLAX PR SCH ×3 (10:54→21:17)
[2019-05-09] MEDS: PERICOLACE PO SCH ×2 (10:54→21:15)
[2019-05-09] MEDS: LEVAQUIN 750 MG/D5W 750 MG/150 ML IVPB IV SCH (11:06)
--- NOTE | 2019-05-09 11:10 | Diag Imaging Result Doc PS360 ---
EXAM: US LIVER BIOPSY W S/I 05/09/2019 HISTORY: NEW LIVER MASS TECHNIQUE: Ultrasound-guided liver biopsy COMMENT: There are multiple visible hypoechoic masses within the liver. Two of the more superficial lesions were selected for biopsy. The more inferiorly located lesion was initially biopsied but due to the fact that the biopsy needle tended to move the lesion away from the needle, subsequently a different lesion which was more laterally located was biopsied. Prior to the biopsy, the possibility of bleeding, infection, reaction to lidocaine and nondiagnostic biopsy was discussed with the patient and she agreed to the procedure. Following sterile preparation of the skin and administration of 1% lidocaine to the skin and deeper soft tissues in both sides, a total of six cores were obtained between the two lesions. There are no immediate complications. IMPRESSION: Successful ultrasound-guided biopsy. Electronically signed by Daniel Dominguez 05/09/2019 11:08 AM
--- NOTE | 2019-05-09 12:57 | HEMO/ONC PROGRESS NOTE ---
DATE: 05/09/2019 SUBJECTIVE: Ms. Thapa is sitting up in her bed this morning. She is awake but appears very sleepy. She said she did have a good night sleep last night but feels very tired still this morning. She is planned to have her liver biopsy this morning. Otherwise, she states she is feeling well. Her nausea has been relieved. She has no complaints this morning. She is hoping that if her pneumonia is starting to improve that she will be able to go home soon. OBJECTIVE: Vital signs: Temperature 98.3, pulse rate 118, respiratory rate 20, blood pressure 147/61, O2 saturation 97% on nasal cannula at 2 L. PHYSICAL EXAMINATION: General: The patient appears in no acute distress, although, she does appear sleepy this morning. Cardiovascular: Normal S1, S2. Heart rate is tachycardic. Respiratory: The patient has notable rhonchi to the right upper lung. Left lung is clear to auscultation. Normal respiratory effort. Skin: Pale with decreased skin turgor. No ecchymosis or petechiae noted. Neurological: Awake, alert, and oriented x3, follows commands, moves all extremities well. LABORATORY: WBC 11.97, hemoglobin 13.9, hematocrit 40.8, platelet count 544,000, ANC 9.32. Sodium 134, potassium 3.5, creatinine 0.6, uric acid 6.0. LDH 786. ASSESSMENT AND PLAN: 1. Right upper lung mediastinal mass with extensive adenopathy and probable right lobe liver metastasis. The patient will undergo a CT-guided liver biopsy this morning. We will continue to wait on biopsy results. The patient's sodium has improved and is almost normal. Her nausea has been relieved. We will follow up with the patient as an outpatient, perform a PET scan, and await tissue biopsy to make further plans accordingly. 2. Hyponatremia. This has resolved. The patient's sodium today is 134. Syndrome of inappropriate antidiuretic hormone still remains a possibility especially if this is going to appear to be small-cell lung cancer. We will continue to monitor. 3. Nausea and vomiting. The patient's nausea appears to have resolved as the patient's sodium has normalized. Continue to treat her with antiemetic as necessary if she requests. Encourage her to eat or drink when she is able to do so after her procedure this morning. If her nausea does not improve, will return to consider scanning her brain for brain metastasis. 4. Deep venous thrombosis prophylaxis. The patient has on intermittent pneumatic devices on her legs. She was also on Lovenox, restart that when appropriate after her liver biopsy per the surgeon. 5. Nutrition: When the patient is able to eat and drink again, continue her on protein shakes. 6. Port access. We have consulted a surgeon to place a Port-A-Cath if possible while she is in the hospital. Dictated by SHERICE Clemente for Sav Padilla MD cc: Sav Padilla MD [facility]
--- NOTE | 2019-05-09 13:59 | PROVIDER PROGRESS NOTE ---
Progress Note Dr. Edwards Progress Note/Pulmonary and or critical care We appreciated progress of care, Complications, change in diagnosis, and instructions to patient under direct supervision of Dr. Edwards. Subjective: We note the level of consciousness, bed (chair) position, family presence (if any), level of lethargy, feeling of symptoms, and changes from baseline condition/symptom. The patient feels ok. She just had liver biopsy done. She is on NC at 2L. She reports no pain. Patients son and granddaughter are at the bedside. Patient insists that she doesnt need lung Dr. at this time and Dr. Padilla is taking care of everything. Vital Signs: We reviewed EMR current values for Pulse rate, Blood pressure, Pulse rate, respiratory rate and Pulse oximetry. Also noted other values and trends if present (e.g. I/O, CVP). Vital Signs 05/08/19 20:00 05/08/19 20:18 05/09/19 00:00 Temperature 97.3 F L 97.4 F L Pulse Rate 105 H 108 H Respiratory Rate 20 22 Blood Pressure 161/64 143/60 O2 Sat by Pulse Oximetry 100 94 L 96 05/09/19 04:00 05/09/19 07:31 05/09/19 08:28 Temperature 99.2 F 98.8 F Pulse Rate 107 H 117 H 115 H Respiratory Rate 16 20 18 Blood Pressure 151/63 160/76 O2 Sat by Pulse Oximetry 98 97 97 05/09/19 11:57 05/09/19 15:31 Temperature 98.3 F 98.0 F Pulse Rate 118 H 106 H Respiratory Rate 20 20 Blood Pressure 147/61 137/51 O2 Sat by Pulse Oximetry 97 92 L Intake & Output 05/08/19 05/09/19 05/09/19 19:59 07:59 19:59 Intake Total 120 / 460 340 / 460 Output Total 750 / 2750 2000 / 2750 300 / 300 Balance -630 / -2290 -1660 / -2290 -300 / -300 Intake: Intake, IV Amount 340 / 340 Intake, Oral Amount 120 / 120 Output: Output, Urine Void Amount 750 / 2750 2000 / 2750 300 / 300 Other: Percent of Meal Consumed 50% Number of Bowel Movements 0 Objective: Physical Examination: Patient refuses at this time. She is lying in bed with no acute distress. Her son and granddaughter at the bedside. Labs and Radiology: Reviewed available labs and radiology values available at time of EMR review. Laboratory Results 05/08/19 05/08/19 05/09/19 15:46 20:30 06:05 WBC RBC Hgb Hct MCV MCH MCHC RDW Std Deviation Plt Count MPV Immature Gran % (Auto) Neut % (Auto) Lymph % (Auto) [place] % (Auto) Eos % (Auto) Baso % (Auto) Immature Gran # (Auto) Neut # (Auto) Lymph # (Auto) [place] # (Auto) Eos # (Auto) Baso # (Auto) PT INR PTT (Actin FS) Sodium Potassium Chloride Carbon Dioxide Anion Gap BUN Creatinine Estimated GFR/1.73 m2 BUN/Creatinine Ratio Glucose POC Glucose 166 H 143 H 152 H Calculated Osmolality Uric Acid Calcium Total Bilirubin AST ALT Alkaline Phosphatase Lactate Dehydrogenase Total Protein Albumin Globulin Albumin/Globulin Ratio 05/09/19 05/09/19 05/09/19 07:25 07:25 07:25 WBC 11.97 H RBC 5.07 Hgb 13.9 Hct 40.8 MCV 80.5 L MCH 27.4 MCHC 34.1 RDW Std Deviation 14.6 H Plt Count 544 H MPV 8.5 Immature Gran % (Auto) 0.8 H Neut % (Auto) 77.9 H Lymph % (Auto) 10.6 L [place] % (Auto) 10.2 H Eos % (Auto) 0.3 Baso % (Auto) 0.2 Immature Gran # (Auto) 0.10 H Neut # (Auto) 9.32 H Lymph # (Auto) 1.27 [place] # (Auto) 1.22 H Eos # (Auto) 0.04 Baso # (Auto) 0.02 PT 14.1 INR 1.08 PTT (Actin FS) 32.3 Sodium 134 L Potassium 3.5 Chloride 90 L Carbon Dioxide 27 Anion Gap 17 BUN 9 Creatinine 0.6 Estimated GFR/1.73 m2 > 60 BUN/Creatinine Ratio 15 Glucose 167 H POC Glucose Calculated Osmolality 271 Uric Acid Calcium 9.6 D Total Bilirubin 0.64 AST 35 H ALT 35 Alkaline Phosphatase 118 H Lactate Dehydrogenase Total Protein 7.0 Albumin 3.7 Globulin 3.3 Albumin/Globulin Ratio 1.1 05/09/19 07:25 WBC RBC Hgb Hct MCV MCH MCHC RDW Std Deviation Plt Count MPV Immature Gran % (Auto) Neut % (Auto) Lymph % (Auto) [place] % (Auto) Eos % (Auto) Baso % (Auto) Immature Gran # (Auto) Neut # (Auto) Lymph # (Auto) [place] # (Auto) Eos # (Auto) Baso # (Auto) PT INR PTT (Actin FS) Sodium Potassium Chloride Carbon Dioxide Anion Gap BUN Creatinine Estimated GFR/1.73 m2 BUN/Creatinine Ratio Glucose POC Glucose Calculated Osmolality Uric Acid 6.0 H Calcium Total Bilirubin AST ALT Alkaline Phosphatase Lactate Dehydrogenase 786 H Total Protein Albumin Globulin Albumin/Globulin Ratio Dr. Edwards evaluated and additional note below. Evaluation time in minutes: 10 minutes. Assessment: Pneumonia, postobstructive Lung mass, RUL mediastinal, likely cancer Hemoptysis, minor Hyponatremia, likely cancer related COPD Plan Continue current treatment and supportive care per admitting and other teams on the case. Antibiotics Bronchodilators Appropriate DVT and GI prophylaxis Input was appreciated from Admitting MD and other teams on the case.
[2019-05-09] MEDS: ZYLOPRIM PO SCH (14:10)
[2019-05-09] MEDS: ZOFRAN IV PRN (15:09)
[2019-05-09] MEDS: MORPHINE IV PRN (15:09)
--- NOTE | 2019-05-09 15:36 | PROGRESS NOTE ---
DATE: 05/09/2019 SUBJECTIVE: This morning Ms. Thapa refers to be hurting slightly after the procedure. Otherwise, she feels well. OBJECTIVE: Vital Signs: Blood pressure is 147/61, pulse of 118, respirations 20, temperature 98.3 degrees. The patient is saturating 97% on 2 liters of nasal cannula. General: Ms. Thapa is a 69-year-old female. She is in bed, in no distress. HEENT: Mucosa is pink and moist. Anicteric. Acyanotic. Neck: Supple. Chest: Air entry was slightly reduced to the right upper lobe, but no crepitations. Cardiovascular: Regular rate and rhythm. Gastrointestinal: Abdomen was soft. Extremities: No pedal edema. Central Nervous System: The patient is awake, alert, oriented. Mildly hoarse. LABORATORY DATA: WBC is 11.97, hemoglobin is 13.9, platelet count of 544. Chemistry is also reviewed. Sodium is up to 134. So far, blood cultures have been negative for 48 hours. ASSESSMENT: 1. Dyspnea with hemoptysis secondary to right upper lobe lung mass concerning for malignancy. 2. Multiple hepatic masses concerning for metastatic disease, presumably coming from the lungs. 3. 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 4. Remote history of diverticular disease, status post sigmoid resection in 2017. 5. Generalized weakness and deconditioning. Physical therapy is on board. 6. Hoarseness, suspected to be related to the lung malignancy, with the local compression to probably the laryngeal nerve. 7. Postobstructive pneumonia. Patient is on antimicrobial therapy. SUMMARY/PLAN: In general, Ms. Thapa is doing well. She just underwent CT-guided liver biopsy. She is going to be observed overnight and will be pending the final recommendations from Hematology/Oncology. cc: Williams Ponce MD
[2019-05-09] MEDS: LOVENOX SUBQ SCH (18:26)
--- NOTE | 2019-05-10 02:02 | GENERAL SURGERY CONSULTATION ---
DATE: 05/09/2019 REFERRING PHYSICIAN: Sav Padilla MD. CONSULTING PHYSICIAN: Tera Tolentino MD. REASON FOR CONSULTATION: Port insertion. HISTORY OF PRESENT ILLNESS: This is a 69-year-old female with a recently diagnosed right lung mass and probable metastases to the liver. She is going to require a port placement for chemotherapy. She previously had been having shortness of breath, productive cough, nausea, vomiting, increasing weakness and right scapular pain. This led eventually to imaging, which showed the mass in the right lung and in the liver. She has undergone biopsies this admission. PAST MEDICAL HISTORY: Hypertension, type 2 diabetes. PAST SURGICAL HISTORY: None pertinent. SOCIAL HISTORY: Negative for tobacco, alcohol or illicit drug use. ALLERGIES: Codeine. HOME MEDICATIONS: Citracal, Januvia, metformin, valsartan/hydrochlorothiazide. FAMILY HISTORY: Noncontributory. REVIEW OF SYSTEMS: Ten systems reviewed and negative except as noted above. PHYSICAL EXAMINATION: Vital Signs: Temperature 98 degrees, pulse 106, respirations 20, blood pressure 137/51, O2 saturation 92%. General: An elderly female who looks her stated age, in no acute distress. HEENT: Normocephalic, atraumatic. Extraocular muscles intact. Pupils are equal, round, and reactive to light. Sclerae are anicteric. Neck: Supple. No thyromegaly. CV: Regular rate and rhythm. Respiratory: Bilateral breath sounds. No work of breathing. Gastrointestinal: Soft, nontender, nondistended. Extremities: No clubbing, cyanosis or edema. Musculoskeletal: Moves all extremities equally and well. LABORATORY DATA: White blood cell count 11.9, hemoglobin 13.9, platelet count 544,000. INR 1.08. Metabolic profile reviewed and unremarkable. ASSESSMENT AND PLAN: A 69-year-old female with right lung mass and probable liver METS. Biopsy is pending. She needs a port catheter for future chemotherapy. I discussed the risks, benefits and alternatives with her including bleeding, infection, injury to surrounding organs such as the lung causing pneumothorax, catheter malfunction, and other imponderables. She understands and agrees to proceed. cc: Tera Tolentino MD
[2019-05-10] MEDS: HUMULIN R SUBQ SCH ×3 (06:16→18:37)
[2019-05-10 07:36] LABS: BASO# 0.03 X1000 (0.0-0.2); BASO% 0.2 % (0.0-0.8); EOS# 0.06 X1000 (0.0-0.7); EOS% 0.4 % (0.0-10.0); HEMATOCRIT 41.1 % (37.0-47.0); HEMOGLOBIN 13.6 g/dL (12.0-16.0); IMM GRAN# 0.09 X1000 (0.0-0.04); IMM GRAN% 0.6 % (0.0-0.5); LYMPH# 1.69 X1000 (1.2-3.4); MCHC 33.1 g/dL (33-37); MCV 81.7 FL (81-99); MONO# 1.14 X1000 (0.11-0.59); MONO% 8.1 % (1.7-9.3); MPV 8.4 FL (7.4-10.4); NEUT% 78.7 % (42.2-75.2); PLT 528 X1000 (130-400); RBC 5.03 XMIL (4.2-5.4); RDW 14.7 % (11.5-14.5); WBC 14.11 X1000 (4.8-10.8)
[2019-05-10 08:04] LABS: ESTIMATED GFR > 60
[2019-05-10] MEDS: DUONEB (A & A) INH PRN ×2 (08:09→20:09)
[2019-05-10] MEDS: PULMICORT INH SCH ×2 (08:09→20:09)
[2019-05-10 08:23] LABS: AGAP 12; ALBUMIN 3.5 g/dL (3.5-5.0); ALKALINE PHOSPHATASE 126 U/L (32-104); BUN 13 mg/dL (8-22); CALCIUM 9.7 mg/dL (8.8-10.2); CHLORIDE 84 mmol/L (98-107); COSMO 262; CREATININE 0.7 mg/dL (0.5-0.9); GLUCOSE 187 mg/dL (70-104); GOT 39 U/L (10-30); GPT 38 U/L (10-36); POTASSIUM 3.4 mmol/L (3.5-5.1); SODIUM 128 mmol/L (136-145); TCO2 32 mmol/L (25-35); TOTAL BILIRUBIN 0.76 mg/dL (0.20-1.00); TOTAL PROTEIN 7.1 g/dL (6.3-8.3)
[2019-05-10] MEDS ORDERED: DIPRIVAN 1% ONE (09:22)
[2019-05-10] MEDS ORDERED: FENTANYL ONE (09:23)
[2019-05-10] MEDS ORDERED: VERSED ONE (09:23)
[2019-05-10] MEDS ORDERED: XYLOCAINE-MPF 2% ONE (09:25)
[2019-05-10] MEDS ORDERED: NS 250 ML ONE (09:51)
[2019-05-10] MEDS ORDERED: SENSORCAINE 0.5%-EPI 1:200,000 ONE (09:51)
[2019-05-10] MEDS ORDERED: ZOFRAN ONE (10:29)
[2019-05-10] MEDS: LEVAQUIN 750 MG/D5W 750 MG/150 ML IVPB IV SCH (10:36)
[2019-05-10] MEDS ORDERED: ULTRAM PO PRN (10:59)
[2019-05-10] MEDS: DILAUDID ONE ×2 (11:10→11:15)
[2019-05-10] MEDS ORDERED: DILAUDID ONE (11:26)
--- NOTE | 2019-05-10 11:31 | Diag Imaging Result Doc PS360 ---
EXAM: CHEST-PORTABLE 05/10/2019 HISTORY: in pacu TECHNIQUE: AP portable at 1115 COMMENT: There is a pleural effusion on the right which was not present on 05/07/2019. There is a Port-A-Cath on the right with its tip in the area of the superior vena cava. There is no evidence of pneumothorax. The lungs are not as well-expanded as on the previous study. There is more atelectasis in the right lower lobe than on the previous study. IMPRESSION: Right pleural effusion and lower lobe atelectasis. Electronically signed by Daniel Dominguez 05/10/2019 11:29 AM
[2019-05-10] MEDS: CITRACAL + D PO SCH (13:15)
[2019-05-10] MEDS: PERICOLACE PO SCH ×2 (13:15→21:24)
[2019-05-10] MEDS: DIOVAN PO SCH (13:15)
[2019-05-10] MEDS: DULCOLAX PR SCH ×2 (13:15→21:25)
[2019-05-10] MEDS: ZYLOPRIM PO SCH (13:15)
[2019-05-10] MEDS: LIDODERM TOP SCH (13:16)
--- NOTE | 2019-05-10 14:45 | PROGRESS NOTE ---
DATE: 05/10/2019 SUBJECTIVE: This morning, Ms. Thapa referred to be doing fair. She still has some shortness of breath. She did refer that her extremities especially the upper extremities were slightly purplish. OBJECTIVE: Vital signs: Her vitals, blood pressure is 146/59, pulse of 103, respiration is 12, temperature is 97.4. General: On general exam, Ms. Thapa is a 78-year-old female. She was in bed. No distress. HEENT: Mucosa is pink and moist. Anicteric. Mildly cyanosis on the hands. Chest: Air entry is bilaterally reduced, more so to the right posterior lung field. Cardiovascular: Regular rate and rhythm. No murmurs. No rubs. No gallops. GI: Abdomen is soft, nontender. Bowel sounds present. Extremities: No pedal edema. RADIOLOGIST CHIEF OF BREAST IMAGING: The patient is awake, alert, follows commands, still has some mild hoarseness. LABORATORY DATA: WBC is 11.11, hemoglobin is 13.6. Sodium is 128, potassium is 3.4, chloride is 84, glucose of 204. Chest x-ray this morning shows a right pleural effusion and lower lobe atelectasis. There is recent placement of a port. ASSESSMENT: 1. Dyspnea with hemoptysis secondary to right upper lobe lung mass concerning for malignancy. 2. Multiple hepatic masses concerning for metastatic disease presumably coming from lung primary. 3. Hyponatremia due to syndrome of inappropriate antidiuretic hormone. 4. Generalized weakness and deconditioning secondary to underlying malignancy. 5. Hoarseness presumably from compression of the laryngeal nerve. 6. Postobstructive pneumonia. The patient is on antimicrobial therapy. 7. Acute hypoxemic respiratory failure. The patient continues to be on supplemental oxygen. So in general, I think Ms. Thapa is pending a port placement today, hopefully after that she can be discharged home. This morning, she seems to have some cyanosis in the hands, I think her oxygen demand has improved but she is still going to be needing oxygen to be discharged on. I think her general prognosis continues to be remarkably poor. The pathology report from the liver biopsy does not make mention of any malignancy, I am not sure if they were not able to sample the right side. cc: Williams Ponce MD
--- NOTE | 2019-05-10 16:10 | HEMO/ONC PROGRESS NOTE ---
DATE: 05/10/2019 SUBJECTIVE: Ms. Thapa is feeling better today. She states that her shortness of breath has improved. She has noticed that her hands are bluish. Otherwise, she feels fairly well. She is planning to get a Port-A-Cath today. We are continuing to wait on biopsy results. She has no complaints this morning and had a good night's sleep. OBJECTIVE: Vital Signs: Temperature 97.4 degrees, pulse rate 102, respiratory rate 12, blood pressure 119/60, O2 saturation 98% on nasal cannula at 2 L. PHYSICAL EXAMINATION: General: She appears comfortable, in no acute distress. HEENT: Sclerae is anicteric. Oral mucosa is normal. Cardiovascular: Rate and rhythm tachycardic. Respiratory: Rhonchi remains in the right upper lung. Left lung is clear to auscultation. Abdomen: Soft, nontender, nondistended. Bowel sounds are present. Extremities: No edema noted. Neurological: Alert and oriented x3. LABORATORY: WBC is 14.11, hemoglobin 13.6, hematocrit 41.1, platelet count 528,000. Sodium 128, potassium 3.4, creatinine 0.7, total bilirubin 0.76, alkaline phosphatase 126, LDH 786. RADIOLOGY: Chest x-ray shows Port-A-Cath correctly in place. Right pleural effusion and lower lobe atelectasis. ASSESSMENT AND PLAN: 1. Right upper lung mediastinal mass with extensive adenopathy and probable right lobe liver metastasis. The patient underwent a CT-guided liver biopsy yesterday morning. We got preliminary results back today that are unfortunately negative. We will repeat CT-guided liver biopsy again today. 2. Hyponatremia. The patient's sodium is slightly low again today. Continue to gently hydrate. 3. Nausea and vomiting. This has resolved at this time. Continue to treat her with antiemetics as necessary. 4. Deep venous thrombosis prophylaxis. The patient has on intermittent pneumatic devices. It does not appear the patient was given Lovenox the past two nights due to procedures. Restart her when appropriate after her next liver biopsy is performed if that is today or tomorrow, when the surgeon says it is appropriate. 5. Nutrition, when the patient is able to eat and drink again. Continue her on protein shakes. 6. Tumor lysis prophylaxis: On allopurinol. Dictated by SHERICE Clemente for Sav Padilla MD cc: Sav Padilla MD [facility]
--- NOTE | 2019-05-10 16:32 | Diag Imaging Result Doc PS360 ---
EXAM: CT GUIDED BX LIVER INDICATION: PREVIOUS NECROTIC TISSUE BX TECHNIQUE: COMPARISON: 05/08/2019 FINDINGS: Risks, benefits, and alternatives were discussed with the patient and informed consent was obtained. The patient was placed in a supine position and local anesthesia was achieved with 1% lidocaine solution. Using CT guidance, an 18-gauge coaxial biopsy needle system was used to obtain 1.3 cm core biopsies from one of the many liver masses at the inferior aspect of the right lower lobe. The first sample was sent to pathology for frozen section analysis was found to be adequate. Then four more core biopsies were obtained and sent for pathological analysis. There were no known complications. IMPRESSION: Technically successful CT-guided liver biopsy. Electronically signed by Quang White 05/10/2019 4:30 PM
--- NOTE | 2019-05-10 17:50 | OPERATIVE NOTE ---
PROCEDURE DATE: 05/10/2019 PREOPERATIVE DIAGNOSIS: Metastatic cancer. POSTOPERATIVE DIAGNOSIS: Metastatic cancer. PROCEDURE: Insertion of Port-A-Cath with fluoroscopic and ultrasound guidance. SURGEON: Tera Tolentino MD. ANESTHESIA: General. BLOOD LOSS: 5 mL. COMPLICATIONS: None apparent. FINDINGS: The right internal jugular vein was found with ultrasound to be compressible and patent without thrombus. Fluoroscopy revealed proper placement of the wire followed by the catheter to the superior vena cava right atrial junction. TECHNIQUE: The patient was brought to the operating room, and placed supine on the table. General anesthesia was induced. She was prepped and draped in the usual sterile fashion. 0.25% Marcaine with epinephrine was used to anesthetize our incisions. Incision was made below the right clavicle with a knife, and carried down through the subcutaneous tissues with cautery. A pocket was created anterior to the pectoral fascia with cautery and blunt finger dissection. The right internal jugular vein was found with ultrasound. The skin over the vein was anesthetized with Marcaine. A small incision was made with 11 blade. The vein was accessed under ultrasound guidance easily. The wire passed through the needle easily. Fluoroscopy revealed proper placement of the wire. I then tunneled the catheter subcutaneously from the lower incision out through the neck incision. The dilator and sheath were passed over the wire. The wire and dilator were removed. The catheter was passed into the sheath. The sheath was removed. The catheter was confirmed to be in good position on fluoroscopy. I then cut the catheter to size and fixed it to the port. The port was anchored to the fascia with 2-0 Surgipro at 2:00, 6:00, and 10:00. The port was accessed. It andre back blood easily. It was flushed with heparin saline. I closed the incisions with interrupted subcutaneous 3-0 Polysorb and a running 4 subcu subcuticular Biosyn and Steri-Strips. There were no apparent complications. She was awakened in stable condition and transferred to recovery room. cc: Tera Tolentino MD
[2019-05-10] MEDS: NS 1,000 ML IV SCH (18:37)
[2019-05-10] MEDS: LOVENOX SUBQ SCH (18:38)
[2019-05-11] MEDS: HUMULIN R SUBQ SCH ×4 (04:20→16:14)
[2019-05-11] MEDS: NS 1,000 ML IV SCH (04:21)
[2019-05-11 07:14] LABS: BASO# 0.03 X1000 (0.0-0.2); BASO% 0.3 % (0.0-0.8); EOS# 0.07 X1000 (0.0-0.7); EOS% 0.6 % (0.0-10.0); HEMATOCRIT 38.5 % (37.0-47.0); HEMOGLOBIN 12.7 g/dL (12.0-16.0); IMM GRAN# 0.11 X1000 (0.0-0.04); IMM GRAN% 0.9 % (0.0-0.5); LYMPH# 1.53 X1000 (1.2-3.4); LYMPH% 12.8 % (20.5-51.1); MCV 81.7 FL (81-99); MONO# 0.92 X1000 (0.11-0.59); MONO% 7.7 % (1.7-9.3); MPV 8.2 FL (7.4-10.4); NEUT# 9.27 X1000 (1.4-6.5); NEUT% 77.7 % (42.2-75.2); PLT 427 X1000 (130-400); RBC 4.71 XMIL (4.2-5.4); RDW 14.7 % (11.5-14.5); WBC 11.93 X1000 (4.8-10.8)
[2019-05-11 07:40] LABS: ESTIMATED GFR > 60
[2019-05-11 07:51] LABS: AGAP 16; ALB/GLOB RATIO 0.9; ALBUMIN 3.1 g/dL (3.5-5.0); ALKALINE PHOSPHATASE 116 U/L (32-104); BUN 15 mg/dL (8-22); CALCIUM 9.2 mg/dL (8.8-10.2); CHLORIDE 85 mmol/L (98-107); COSMO 263; CREATININE 0.6 mg/dL (0.5-0.9); GLUCOSE 157 mg/dL (70-104); GOT 39 U/L (10-30); GPT 34 U/L (10-36); POTASSIUM 3.8 mmol/L (3.5-5.1); SODIUM 129 mmol/L (136-145); TCO2 28 mmol/L (25-35); TOTAL PROTEIN 6.5 g/dL (6.3-8.3)
[2019-05-11] MEDS: PULMICORT INH SCH ×2 (08:05→20:12)
[2019-05-11] MEDS: DUONEB (A & A) INH PRN ×3 (08:05→20:12)
[2019-05-11] MEDS: PERICOLACE PO SCH ×2 (08:34→20:33)
[2019-05-11] MEDS: LIDODERM TOP SCH ×2 (08:34→08:36)
[2019-05-11] MEDS: ZYLOPRIM PO SCH (08:34)
[2019-05-11] MEDS: CITRACAL + D PO SCH (08:34)
[2019-05-11] MEDS: DIOVAN PO SCH (08:34)
[2019-05-11] MEDS: DULCOLAX PR SCH ×2 (08:35→20:33)
[2019-05-11] MEDS: ZOFRAN IV PRN ×3 (08:55→20:33)
[2019-05-11] MEDS: MORPHINE IV PRN (08:55)
[2019-05-11] MEDS: LEVAQUIN 750 MG/D5W 750 MG/150 ML IVPB IV SCH (11:20)
--- NOTE | 2019-05-11 13:42 | HEMO/ONC PROGRESS NOTE ---
DATE: 05/11/2019 SUBJECTIVE: Ms. Thapa continues to do well today. She states that she does not feel all that great but she does continue to get a little better every day. She feels as though her shortness of breath is getting better but her hands are continuing to be very cold and mottled. I did note today that her IV fluids to her right hand appear to be infiltrating into her right arm. The fluids were cut off and her nurse was notified. The patient states she had a good night's sleep. They are continuing to wait on the patient's biopsy results. She had no acute events overnight. OBJECTIVE: Vital Signs: Temperature 98.3 degrees, pulse rate 108, respiratory rate 18, blood pressure 153/66, O2 saturation 99% on 4 L via nasal cannula. She is in 5/10 back, sacrum, and abdomen pain. General: During my assessment this morning, the patient did not appear to be in any acute distress. HEENT: Oral mucosa was normal. Sclerae anicteric. Cardiovascular: Tachycardic rate and rhythm. Normal S1, S2. Respiratory: Right lung has rhonchi and wheezes. Left lung clear. The patient was receiving a breathing treatment during my assessment. Abdomen: Protuberant, soft, and nontender. Extremities: No edema noted. Neurological: Alert and oriented x3. No focal motor deficits noted. Laboratory: WBCs 11.93, hemoglobin 12.7, hematocrit 38.5, platelet count is 427,000, ANC 9.27. Sodium 129, potassium 3.8, creatinine 0.6. ASSESSMENT AND PLAN: 1. Right upper lung mediastinal mass with extensive adenopathy and probable right lower lobe metastasis. The patient underwent her second CT-guided biopsy yesterday afternoon. Preliminary results appear to be small cell lung cancer. Her shortness of breath is improving. We will begin treating the patient tomorrow with Carboplatin, Etoposide and Tecentriq. She will also receive zofran and decadron prior to her treatment for nausea and allergy prophylaxis. Dr Padilla has discussed the side effects and expectations of this chemotherapy. The patient verbalized understanding. All of her questions have been answered to her satisfaction. 2. Hyponatremia: We are continuing to monitor hyponatremia. Patient's sodium continues to be low. She had an infiltrated intravenous line this morning. Please continue normal saline when her intravenous situation is resolved. This may be a result of SIADH. 3. Nausea and vomiting. This is resolved at this time. If it returns, continue to treat her with antiemetics as necessary. 4. Deep venous thrombosis prophylaxis. The patient is on intermittent pneumatic devices. Restart Lovenox when appropriate per medical staff or surgery. 5. Nutrition. Please continue the patient on protein shakes when she is able to eat and drink. 6. Tumor lysis prophylaxis. The patient is on allopurinol. We will continue to monitor her labs. Dictated by SHERICE Clemente for Sav Padilla MD Patient seen and examined. Patient reports of increasing pain in the right upper extremity. Doppler ultrasound was performed. Preliminary results called in by hospital laboratory technician reveals DVT. Proceed with Lovenox. Discuss with pathology. Preliminary pathology results show small cell lung cancer. Check MRI of the brain to rule out any metastasis. If brain metastasis are negative, we will start her on chemotherapy soon. Continue current management. Sav Padilla M.D. cc: Sav Padilla MD [facility]ITAL[facility]
[2019-05-11] MEDS: LOVENOX SUBQ SCH (15:39)
--- NOTE | 2019-05-11 18:55 | PROGRESS NOTE ---
DATE: 05/11/2019 SUBJECTIVE: This morning Ms. Thapa refers to be doing slightly better. She said her right upper extremity is remarkably more swollen. She got her port placement yesterday. She also underwent a repeat liver biopsy under CT guidance. OBJECTIVE: Vital Signs: Blood pressure is 150/90, pulse of 109, respirations 20, temperature 97.3 degrees. The patient was saturating 94% on 3 liters. General: Ms. Thapa is a 69-year-old female. She is in bed, in no distress. HEENT: Mucosa is pink and moist. Anicteric. Acyanotic. Neck: Supple. Chest: Air entry was bilaterally reduced, more so to the right posterior lung field. Cardiovascular: Regular rate and rhythm. No murmurs, no rubs, no gallops. Gastrointestinal: Abdomen was soft, minimally distended, but nontender. Bowel sounds present. Extremities: No pedal edema. Distal pulses present. The right upper extremity is remarkably more swollen than the left. IMAGING STUDIES: WBC is 11.93, hemoglobin is 12.7, platelet count of 427,000. Chemistry is also reviewed. Sodium is 129. A Doppler ultrasound, which I ordered this morning, shows some a nonocclusive DVT in the right jugular vein. This is an unofficial report. We are still pending on the official report. 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 ASSESSMENT: 1. Acute hypoxemic respiratory failure on presentation associated with hemoptysis secondary to the right upper lobe mass with possible superimposed postobstructive pneumonitis. 2. Left upper lobe mass concerning for malignancy, presumably small-cell lung cancer. 3. Multiple hepatic masses from metastasis. A preliminary report shows that this is a small-cell lung cancer, which we think is coming from the lung. 4. Hyponatremia due to syndrome of inappropriate antidiuretic hormone secretion. We will give Ms. Thapa another dose of Samsca today. 5. Right upper extremity swelling with a Doppler ultrasound confirming a nonocclusive deep vein thrombosis in the right jugular vein. The patient has been started on therapeutic Lovenox. 6. Generalized weakness and deconditioning secondary to underlying malignancy. 7. Hoarseness, presumably from compression of the laryngeal nerve. 8. Post obstructive pneumonia. The patient continues to be on antimicrobial therapy. SUMMARY/PLAN: In general, I think Ms. Thapa remains stable. Her preliminary report shows that the liver mass is a poorly differentiated small-cell cancer, which we think is coming from the lungs. The patient has been started on prophylaxis for spontaneous tumor lysis syndrome. An ultrasound this morning shows a nonocclusive DVT in the right jugular vein, and she has been started on Lovenox. It appears that Hematology-Oncology plans to start her on chemotherapy right away. We will be waiting on their further recommendations. cc: Williams Ponce MD
--- NOTE | 2019-05-12 04:18 | Extremity Venous Study ---
PROCEDURE NAME: Venous U/S Right Arm - 05/11/2019 STUDY: Right upper extremity venous duplex and color flow imaging study using the GE Vivid E9 ultrasound system with a 9L-D transducer. REFERRING PHYSICIAN: Williams Ponce MD AGE: A 69-year-old female. ADJUNCT PHLEBOTOMY INSTRUCTOR: Marina Gutierrez RVT INDICATIONS: Swelling after new port placement. FINDINGS: There appears to be thrombus within the right internal jugular vein. The right subclavian and axillary veins had flow through them without evidence of thrombus. The right brachial veins had flow through them. Superficial veins of the right arm, antecubital fossa and forearm were all compressible. INTERPRETATION: Deep venous thrombosis involving the right jugular vein status post port placement. cc: MD Williams Salter MD
[2019-05-12] MEDS: ZOFRAN IV PRN ×2 (04:22→09:41)
[2019-05-12] MEDS: HUMULIN R SUBQ SCH ×5 (04:31→20:46)
[2019-05-12] MEDS: LOVENOX SUBQ SCH ×2 (05:09→18:23)
[2019-05-12] MEDS: DUONEB (A & A) INH PRN ×4 (07:46→23:02)
[2019-05-12] MEDS: PULMICORT INH SCH ×2 (07:46→23:02)
--- NOTE | 2019-05-12 07:49 | Diag Imaging Result Doc PS360 ---
EXAM: CT HEAD W/WO CONTRAST HISTORY: brain metastasis TECHNIQUE: CT head with and without intravenous contrast COMPARISON: 09/17/2018 FINDINGS: No parenchymal hemorrhage. No epidural or subdural hematoma. No subarachnoid hemorrhage. There are aneurysm clips. No mass or midline shift. No enhancing lesion on the post contrasted images. No hydrocephalus. No sinus opacification. IMPRESSION: No hemorrhage or mass identified. An MRI of the brain with and without contrast would better evaluate for small metastases. A preliminary report was given at 12:26 AM This exam was performed using automated exposure control, adjustment of mA or kV according to patient size, and/or use of iterative reconstruction technique. Electronically signed by Osmany Morales 05/12/2019 7:47 AM
[2019-05-12] MEDS ORDERED: ZOFRAN 16 MG, DECADRON 10 MG in NS 50 ML IV ONE ×2 (08:30→11:00)
[2019-05-12] MEDS ORDERED: NS IV ONE ×4 (09:00→12:30)
[2019-05-12] MEDS ORDERED: VEPESID IV ONE ×2 (09:00→11:30)
[2019-05-12 09:12] LABS: BASO# 0.06 X1000 (0.0-0.2); BASO% 0.6 % (0.0-0.8); EOS# 0.12 X1000 (0.0-0.7); EOS% 1.2 % (0.0-10.0); HEMOGLOBIN 12.2 g/dL (12.0-16.0); IMM GRAN# 0.07 X1000 (0.0-0.04); IMM GRAN% 0.7 % (0.0-0.5); LYMPH# 1.57 X1000 (1.2-3.4); LYMPH% 15.4 % (20.5-51.1); MCH 27.4 PG (27-31); MONO# 0.88 X1000 (0.11-0.59); MONO% 8.6 % (1.7-9.3); MPV 8.3 FL (7.4-10.4); NEUT# 7.49 X1000 (1.4-6.5); NEUT% 73.5 % (42.2-75.2); PLT 330 X1000 (130-400); RBC 4.46 XMIL (4.2-5.4); RDW 14.9 % (11.5-14.5); WBC 10.19 X1000 (4.8-10.8)
[2019-05-12] MEDS: ZYLOPRIM PO SCH (09:35)
[2019-05-12] MEDS: CITRACAL + D PO SCH (09:35)
[2019-05-12] MEDS: DIOVAN PO SCH (09:35)
[2019-05-12] MEDS: PERICOLACE PO SCH ×2 (09:35→20:46)
[2019-05-12] MEDS: DULCOLAX PR SCH ×2 (09:36→20:48)
[2019-05-12] MEDS: LIDODERM TOP SCH (09:37)
[2019-05-12 09:42] LABS: AGAP 15; ALB/GLOB RATIO 0.8; ALBUMIN 2.9 g/dL (3.5-5.0); ALKALINE PHOSPHATASE 128 U/L (32-104); BUN 13 mg/dL (8-22); CALCIUM 9.4 mg/dL (8.8-10.2); CHLORIDE 85 mmol/L (98-107); COSMO 257; CREATININE 0.7 mg/dL (0.5-0.9); ESTIMATED GFR > 60; GLUCOSE 200 mg/dL (70-104); GOT 40 U/L (10-30); GPT 33 U/L (10-36); POTASSIUM 4.4 mmol/L (3.5-5.1); SODIUM 125 mmol/L (136-145); TCO2 25 mmol/L (25-35); TOTAL BILIRUBIN 0.83 mg/dL (0.20-1.00); TOTAL PROTEIN 6.5 g/dL (6.3-8.3)
[2019-05-12] MEDS ORDERED: PARAPLATIN IV ONE ×2 (10:00→12:30)
[2019-05-12 10:54] LABS: MAGNESIUM 1.9 mg/dL (1.5-2.7); PHOSPHORUS 3.9 mg/dL (2.7-4.5); URIC ACID 2.9 mg/dL (2.4-5.7)
[2019-05-12] MEDS: LEVAQUIN 750 MG/D5W 750 MG/150 ML IVPB IV SCH (11:55)
[2019-05-12] MEDS ORDERED: DECADRON IV ONE (13:47)
[2019-05-12] MEDS ORDERED: PHENERGAN IV PRN (13:49)
[2019-05-12] MEDS ORDERED: SODIUM CHLORIDE 0.9% INJ PRN (13:49)
[2019-05-12] MEDS ORDERED: REGLAN IV PRN (13:54)
[2019-05-12] MEDS ORDERED: REGLAN IV SCH (14:00)
--- NOTE | 2019-05-12 14:13 | Diag Imaging Result Doc PS360 ---
EXAM: PORTOGRAM INDICATION: determine port flow; pt needs chemo sumeet today TECHNIQUE: Iodinated contrast was injected via the patient's newly placed chest port under fluoroscopy. Spot images were obtained. COMPARISON: None. FINDINGS: The implementation project manager images of the right chest port show that it is intact. Upon injection there was no abnormal contrast extravasation. There was normal flow of contrast from the tip of the chest port into the SVC. There was no sign of obstruction. There was normal blood aspiration during the procedure. IMPRESSION: Intact right chest port with no evidence of obstruction. Electronically signed by Quang White 05/12/2019 2:11 PM
--- NOTE | 2019-05-12 16:15 | PROGRESS NOTE ---
DATE: 05/12/2019 SUBJECTIVE: This morning, Ms. Thapa refers to be doing slightly okay. No new complaints. She has been evaluated by Heme-Onc and they have decided to start her on chemotherapy today. OBJECTIVE: Vital signs: Blood pressure is 134/63, pulse of 118, respirations 16, temperature 97.8 degrees. General: Ms. Thapa is a 69-year-old female. She is in bed. No distress. Mucosa is pink and moist. Anicteric. Acyanotic. Neck: Supple. The right upper extremity is remarkably more swollen. Chest: Good air entry bilateral. Some crackles in the posterior lung olivera on the right side. Cardiovascular: Regular rate and rhythm. Gastrointestinal: Abdomen soft, minimally distended, but nontender. Bowel sounds present. Extremities: No pedal edema. Central Nervous System: The patient is awake, alert, and oriented. LABORATORY DATA: CBC is unremarkable. Chemistry shows a sodium of 135. Rest of chemistry is unremarkable. ASSESSMENT: 1. Acute hypoxemic respiratory failure associated with hemoptysis secondary to right upper lobe mass with possible superimposed postobstructive pneumonitis. 2. Left upper lobe mass, most likely due to small cell lung cancer. 3. Multiple hepatic masses from metastasis from a small cell lung cancer. Preliminary report from the biopsy of the liver shows a small cell. The patient is being started on chemotherapy today. 4. Hyponatremia secondary to SIADH. Patient will be dose Samsca. 5. Right upper extremity deep venous thrombosis. Patient has been started on Lovenox. 6. Generalized weakness and deconditioning secondary to underlying malignancy. Physical therapy is on board. 7. Postobstructive pneumonia. We will continue with antimicrobial therapy. 8. Hoarseness noted. cc: Williams Ponce MD
--- NOTE | 2019-05-12 16:24 | HEMO/ONC PROGRESS NOTE ---
DATE: 05/12/2019 SUBJECTIVE: Ms Thapa is feeling a lot better today. she has a good appetite. since yesterday she has developed a swelling in the right side of her neck and ultrasound determined it to be a clot behind her Port-A-Cath. Otherwise she denies any complaints. The patient is aware she is going to start chemotherapy today. She is aware of expectations and side effects. She had a good night's sleep. No acute events overnight. OBJECTIVE: Vital Signs: Temperature 97.8 degrees, pulse rate 118, respiratory rate 16, blood pressure 134/63, O2 saturation 95% on nasal cannula at 3 L, she is in 0/10 pain. General: She is in no acute distress. HEENT: Oral mucosa is normal. Cardiovascular: S1, S2 is normal tachycardic rate and rhythm. Respiratory: Right lung sound has rhonchi and wheezes, left lung is clear to auscultation. Normal respiratory effort. Abdomen: Protuberant, soft, nontender. Extremities: No edema is noted. Neurological: Awake, alert, oriented x3. No focal motor deficits. LABORATORY: 10.19, hemoglobin 12.2, hematocrit 37.0, platelet count 330,000. Sodium 125, creatinine 0.7, alkaline phosphatase 128. RADIOLOGY: Head CT shows no hemorrhage or mass identified. The patient is unable to have a brain MRI due to aneurysm clips. ASSESSMENT AND PLAN: 1. Right upper lung mediastinal mass with extensive adenopathy and probable right lower lobe of the liver metastasis. The patient has preliminary results of her liver biopsy that is showing a small cell lung cancer. Due to the aggressiveness of this cancer we are starting chemotherapy today. We are going to order a portogram on the Port-A-Cath to see if it is flowing well. If it is we will begin carboplatin, etoposide and Tecentriq as soon as possible. The patient will also receive Zofran and Decadron prior treatments for nausea and allergy prophylaxis. 2. Hyponatremia/SIADH. The patient needs to have continuous normal saline running at 100 mL an hour. Due to patient's small cell lung cancer. 3. Nausea and vomiting. The patient has told me today that her nausea continues to recur. She needs to be continually treated around the clock for nausea. 4. Deep vein thrombosis. She is on Lovenox. 5. Nutrition. Please continue to provide the patient with protein shakes and encourage her to eat and drink. 6. Tumor lysis prophylaxis. We will continue to monitor the patient's numbers. The patient is on allopurinol. She will also need to continue normal saline at 100 mL an hour. Dictated by SHERICE Clemente for Sav Padilla MD Patient seen and examined. Port related DVt now on lovenox. SIADH management per Hospitalist. High risk for tumor lysis. Continue allopurinol and IVF. Start chemotherapy. Risks and benefits discussed. Patient want to proceed with chemotherapy which we will start today. Nausea prophylaxis ordered. monitor for side effects. Sav Padilla MD cc: Sav Padilla MD MTDD
[2019-05-12] MEDS: NS 1,000 ML IV SCH ×2 (16:54→22:24)
[2019-05-12] MEDS ORDERED: SAMSCA PO ONE (20:37)
[2019-05-12] MEDS: MORPHINE IV PRN (20:55)
--- NOTE | 2019-05-13 00:25 | PULMONOLOGY PROGRESS NOTE ---
DATE: 05/12/2019 SUBJECTIVE: The patient is awake and alert. She reports her appetite has marginally improved. She has some tenderness in her neck associated with a Port-A-Cath hematoma. She has been initiated on chemotherapy today and is without specific complaints. OBJECTIVE: Vital Signs: The patient has been afebrile for the last 24 hours. Oxygen saturation 98% on 3 L per nasal cannula. HEENT: Pupils are equal and reactive. Oropharynx is clear. Neck: Reveals some fullness following the Port-A-Cath site. Chest: Reveals diminished breath sounds right upper lung field. Cardiac: S1-S2. Abdomen: Soft. Extremities: Without edema. LABORATORIES: Sodium 125, potassium 4.4, chloride 85, bicarbonate 25, BUN 13, creatinine 0.7, glucose 200. IMPRESSION: 1. Advanced stage small cell carcinoma. 2. SIADH and hyponatremia. 3. Hypoxemic respiratory failure. 4. Borderline for superior vena cava syndrome. PLAN: 1. Initiate chemotherapy as you are doing. 2. Agree with IV fluids to prevent complications of tumor lysis syndrome, but observe for fluid overload. 3. Continue oxygen therapy. cc: Shaun Donovan MD
[2019-05-13] MEDS: NS 1,000 ML IV SCH ×4 (01:21→23:52)
[2019-05-13] MEDS: HUMULIN R SUBQ SCH ×4 (06:41→21:19)
[2019-05-13] MEDS: LOVENOX SUBQ SCH ×3 (06:41→19:33)
[2019-05-13] MEDS: PULMICORT INH SCH ×2 (07:51→20:13)
[2019-05-13] MEDS: DUONEB (A & A) INH PRN ×5 (07:51→22:50)
[2019-05-13 08:27] LABS: BASO# 0.01 X1000 (0.0-0.2); BASO% 0.1 % (0.0-0.8); HEMATOCRIT 38.4 % (37.0-47.0); HEMOGLOBIN 12.4 g/dL (12.0-16.0); IMM GRAN# 0.07 X1000 (0.0-0.04); IMM GRAN% 0.7 % (0.0-0.5); LYMPH# 0.72 X1000 (1.2-3.4); LYMPH% 7.4 % (20.5-51.1); MCH 26.8 PG (27-31); MCHC 32.3 g/dL (33-37); MCV 82.9 FL (81-99); MONO% 8.3 % (1.7-9.3); MPV 8.4 FL (7.4-10.4); NEUT# 8.08 X1000 (1.4-6.5); NEUT% 83.5 % (42.2-75.2); PLT 423 X1000 (130-400); RBC 4.63 XMIL (4.2-5.4); RDW 14.8 % (11.5-14.5); WBC 9.68 X1000 (4.8-10.8)
[2019-05-13 08:47] LABS: AGAP 13; ALB/GLOB RATIO 0.9; ALBUMIN 3.3 g/dL (3.5-5.0); ALKALINE PHOSPHATASE 127 U/L (32-104); BUN 11 mg/dL (8-22); CALCIUM 9.6 mg/dL (8.8-10.2); CHLORIDE 94 mmol/L (98-107); COSMO 279; CREATININE 0.7 mg/dL (0.5-0.9); ESTIMATED GFR > 60; GLUCOSE 200 mg/dL (70-104); GOT 31 U/L (10-30); GPT 33 U/L (10-36); POTASSIUM 4.1 mmol/L (3.5-5.1); SODIUM 137 mmol/L (136-145); TCO2 30 mmol/L (25-35); TOTAL BILIRUBIN 0.57 mg/dL (0.20-1.00); TOTAL PROTEIN 6.8 g/dL (6.3-8.3)
[2019-05-13] MEDS: DULCOLAX PR SCH ×2 (08:50→21:20)
[2019-05-13] MEDS: LIDODERM TOP SCH (08:51)
[2019-05-13] MEDS: PERICOLACE PO SCH ×2 (08:52→21:20)
[2019-05-13] MEDS: DIOVAN PO SCH (08:54)
[2019-05-13] MEDS: CITRACAL + D PO SCH (08:55)
[2019-05-13] MEDS: ZYLOPRIM PO SCH (08:55)
[2019-05-13] MEDS: LEVAQUIN 750 MG/D5W 750 MG/150 ML IVPB IV SCH (11:36)
[2019-05-13] MEDS ORDERED: ZOFRAN 16 MG in NS 50 ML IV ONE (13:30)
[2019-05-13] MEDS ORDERED: NS IV ONE (14:00)
[2019-05-13] MEDS ORDERED: VEPESID IV ONE (14:00)
--- NOTE | 2019-05-13 14:23 | PROGRESS NOTE ---
DATE: 05/13/2019 SUBJECTIVE: This morning, Ms. Thapa refers to be doing well. No new complaints. She had her first round of chemotherapy yesterday. We are pending Heme-Onc evaluation today. OBJECTIVE: Vital signs: Blood pressure is 160/72, pulse of 110, respirations 18, temperature is 97.4 degrees. The patient is saturating 97% on room air. General: Ms. Thapa is a 69-year-old female. She is in bed, no distress. HEENT: Mucosa is pink and moist. Anicteric. Acyanotic. Neck: Supple. Extremities: Both upper extremities are remarkably swollen, more so on the right. Chest: Air entry is bilaterally reduced. No crackles. Cardiovascular: Regular rate and rhythm. There are no murmurs, no rubs, no gallops. Gastrointestinal: Abdomen is soft, distended but nontender. Extremities: No pedal edema. Distal pulses are present. Central nervous system: Patient is awake, alert, and oriented. LABORATORY DATA: CBC is unremarkable. Chemistry is also improved. Sodium is up to 137 with the Samsca given last night. ASSESSMENT: 1. Acute hypoxemic respiratory failure associated with hemoptysis on presentation secondary to right upper lobe presumed small-cell lung cancer with postobstructive pneumonitis. 2. Multiple hepatic masses from metastatic small cell lung cancer. 3. 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 This has improved with Samsca. 4. Right upper extremity deep venous thrombosis. Patient is on therapeutic Lovenox. 5. Post obstructive pneumonia. Patient is on antimicrobial therapy. Today is day 5 with a total of 10 days. 6. Hoarseness, improved. PLAN: In general, I think Ms. Thapa is doing well. She is day 1 post chemotherapy. We are going to continue with her current medical management including TLS prophylaxis, antimicrobial and wait for further recommendations from Heme-Onc. cc: Williams Ponce MD
[2019-05-13] MEDS ORDERED: LASIX IV ONE (14:32)
--- NOTE | 2019-05-13 23:42 | PULMONOLOGY PROGRESS NOTE ---
DATE: 05/13/2019 SUBJECTIVE: The patient is awake and alert. She is receiving chemotherapy. She reports her breathing has improved. OBJECTIVE: Vital Signs: The patient has been afebrile for the last 24 hours. Blood pressure 149/70, heart rate 112, respiratory rate 18, oxygen saturation 90% on 3 L per nasal cannula. HEENT: Pupils are equal. Oropharynx appears clear. Neck: Supple. Chest: Reveals edema right greater than left upper extremity. Abdomen: Soft. Extremities: Reveal +1 peripheral edema. LABORATORIES: White blood count 9.68, hemoglobin 12.4, platelet count 423,000. Sodium 137, potassium 4.1, chloride 94, bicarbonate 30, BUN 11, creatinine 0.7, glucose 200. IMPRESSION: A 69-year-old with: 1. Advanced stage small cell lung cancer. 2. SIADH and hyponatremia. 3. Hypoxemic respiratory failure. 4. Borderline superior vena cava syndrome. PLAN: 1. Continue chemotherapy. 2. Continue IV fluids, but be careful and monitor for fluid overload. 3. Continue oxygen therapy. cc: Shaun Donovan MD
[2019-05-14] MEDS: DUONEB (A & A) INH PRN ×5 (03:24→19:49)
[2019-05-14] MEDS: NS 1,000 ML IV SCH ×4 (05:19→23:55)
[2019-05-14] MEDS: HUMULIN R SUBQ SCH ×4 (06:12→21:40)
[2019-05-14] MEDS: LOVENOX SUBQ SCH ×2 (06:29→17:54)
[2019-05-14] MEDS: PULMICORT INH SCH ×2 (07:58→19:49)
[2019-05-14 07:59] LABS: BASO# 0.01 X1000 (0.0-0.2); BASO% 0.1 % (0.0-0.8); EOS# 0.02 X1000 (0.0-0.7); EOS% 0.2 % (0.0-10.0); HEMATOCRIT 37.9 % (37.0-47.0); HEMOGLOBIN 12.1 g/dL (12.0-16.0); LYMPH# 1.52 X1000 (1.2-3.4); LYMPH% 14.6 % (20.5-51.1); MCH 27.1 PG (27-31); MCHC 31.9 g/dL (33-37); MCV 84.8 FL (81-99); MONO# 0.29 X1000 (0.11-0.59); MONO% 2.8 % (1.7-9.3); MPV 8.2 FL (7.4-10.4); NEUT# 8.54 X1000 (1.4-6.5); NEUT% 82.3 % (42.2-75.2); PLT 389 X1000 (130-400); RBC 4.47 XMIL (4.2-5.4); RDW 14.9 % (11.5-14.5); WBC 10.38 X1000 (4.8-10.8)
[2019-05-14 08:25] LABS: AGAP 11; ALB/GLOB RATIO 0.9; ALKALINE PHOSPHATASE 122 U/L (32-104); BUN 14 mg/dL (8-22); CALCIUM 8.9 mg/dL (8.8-10.2); CHLORIDE 95 mmol/L (98-107); COSMO 275; CREATININE 0.7 mg/dL (0.5-0.9); ESTIMATED GFR > 60; GLUCOSE 139 mg/dL (70-104); GOT 41 U/L (10-30); GPT 36 U/L (10-36); SODIUM 136 mmol/L (136-145); TCO2 30 mmol/L (25-35); TOTAL BILIRUBIN 0.46 mg/dL (0.20-1.00); TOTAL PROTEIN 6.2 g/dL (6.3-8.3)
[2019-05-14] MEDS: DULCOLAX PR SCH ×2 (09:22→21:42)
[2019-05-14] MEDS: LIDODERM TOP SCH (09:22)
[2019-05-14] MEDS: DIOVAN PO SCH (09:23)
[2019-05-14] MEDS: PERICOLACE PO SCH ×2 (09:23→21:42)
[2019-05-14] MEDS: ZYLOPRIM PO SCH (09:24)
[2019-05-14] MEDS: CITRACAL + D PO SCH (09:24)
--- NOTE | 2019-05-14 09:47 | PROGRESS NOTE ---
DATE: 05/14/2019 SUBJECTIVE: This morning, Ms. Thapa refers to be doing fair. She says she hardly had any sleep last night. was at the bedside at the time of the encounter. The patient finished her chemotherapy yesterday. There is an order for Atezolizumab 1200 mg IV infusion for tomorrow from the Hematology/Oncology team. She is also getting another dose of etoposide today. OBJECTIVE: Vital Signs: Blood pressure is 167/71, pulse 114, respirations 18, temperature 97.4 degrees. General: Ms. Thapa is a 69-year-old, female. She is in bed. No distress. HEENT: Mucosa is pink and moist. Anicteric. Acyanotic. Neck: Supple. Chest: Good air entry bilaterally. There are no crepitations, no rhonchi. Cardiovascular: Regular rate and rhythm. No murmurs, no rubs, no gallops. GI: Abdomen is soft, distended, but nontender. Bowel sounds present. Extremities: No pedal edema. Distal pulses present. The patient, however, has minimum swelling on the upper extremity. ORCHID TRANSPLANTER: The patient is drowsy, easily sleeping, but will wake up and sustain a reasonable conversation, and will move all extremities upon command. LABORATORY DATA: CBC is unremarkable. Chemistry is unremarkable. So far, blood cultures have been 48 hours negative. ASSESSMENT: 1. Acute hypoxemic respiratory failure associated with hemoptysis on presentation secondary to right upper lobe mass, which is presumed to be a small-cell lung cancer with postobstructive pneumonitis. 2. Multiple hepatic masses from metastatic small-cell lung cancer. The patient is status post CT- guided biopsy, which the pathology report shows is a small-cell lung cancer. 3. Hyponatremia secondary to syndrome of inappropriate antidiuretic hormone, improved. 4. Right upper extremity deep vein thrombosis. The patient also has mild swelling on the left, which gives an impression of superior vena cava syndrome. 5. Postobstructive pneumonia. The patient is on antimicrobial. Today is day 6. 6. Hoarseness, improved. 7. Tumor lysis syndrome prophylaxis. Noted. cc: Williams Ponce MD
[2019-05-14] MEDS: LEVAQUIN 750 MG/D5W 750 MG/150 ML IVPB IV SCH (11:24)
[2019-05-14] MEDS ORDERED: ZOFRAN 16 MG in NS 50 ML IV ONE (13:30)
[2019-05-14] MEDS ORDERED: NS IV ONE (14:00)
[2019-05-14] MEDS ORDERED: VEPESID IV ONE (14:00)
[2019-05-14] MEDS ORDERED: LASIX IV ONE (15:03)
--- NOTE | 2019-05-14 19:22 | PULMONOLOGY PROGRESS NOTE ---
DATE: 05/14/2019 SUBJECTIVE: The patient is awake and alert. She reports her breathing is worse today than yesterday. She is having some dyspnea and anxiety. OBJECTIVE: Vital Signs: Blood pressure 154/68, heart rate 116, respiratory rate 18, oxygen saturation 98%. HEENT: Pupils are equal and reactive. Oropharynx appears clear . Neck: Reveals fullness below the right jaw. Chest: Reveals decreased breath sounds right apex. Cardiac: S1, S2, increased rate. Abdomen: Is soft. Extremities: Reveal edema left greater than right upper extremity. LABORATORIES: White blood count 10.38, hemoglobin 12.1, platelet count 389,000. Sodium 136, potassium 4.0, chloride 95, bicarbonate 30, BUN 14, creatinine 0.7. IMPRESSION: A 69-year-old with: 1. Advanced stage small cell lung cancer. 2. Syndrome of inappropriate antidiuretic hormone secretion with hyponatremia. 3. Hypoxemic respiratory failure. 4. Fluid overload with increased shortness of breath. 5. Borderline superior vena cava syndrome. PLAN: 1. Continue chemotherapy. 2. Continue oxygen therapy. 3. We will give a dose of Lasix this afternoon for increasing shortness of breath. 4. Overall prognosis is guarded. cc: Shaun Donovan MD
[2019-05-14] MEDS: ZOFRAN IV PRN (20:20)
[2019-05-15] MEDS: NS 1,000 ML IV SCH ×2 (01:05→16:37)
[2019-05-15] MEDS: DUONEB (A & A) INH PRN ×3 (03:06→12:04)
[2019-05-15] MEDS: HUMULIN R SUBQ SCH ×3 (06:48→16:38)
[2019-05-15] MEDS: LOVENOX SUBQ SCH (06:48)
--- NOTE | 2019-05-15 07:28 | Diag Imaging Result Doc PS360 ---
EXAM: CHEST-PORTABLE 05/15/2019 HISTORY: abnormal exam TECHNIQUE: AP portable at 0557 COMMENT: Compared to 05/10/2019, there is slightly worsened alveolar opacification on the right. The right upper lobe is almost entirely airless at this point. The left lung is unchanged in appearance. IMPRESSION: Worsened atelectasis and/or pneumonia on the right. Electronically signed by Daniel Dominguez 05/15/2019 7:26 AM
[2019-05-15] MEDS: PULMICORT INH SCH (07:56)
[2019-05-15] MEDS: ZOFRAN IV PRN (08:51)
[2019-05-15 08:58] LABS: EOS# 0.03 X1000 (0.0-0.7); EOS% 0.4 % (0.0-10.0); HEMATOCRIT 36.6 % (37.0-47.0); HEMOGLOBIN 11.6 g/dL (12.0-16.0); LYMPH# 1.11 X1000 (1.2-3.4); LYMPH% 16.2 % (20.5-51.1); MCH 27.1 PG (27-31); MCHC 31.7 g/dL (33-37); MCV 85.5 FL (81-99); MONO# 0.05 X1000 (0.11-0.59); MONO% 0.7 % (1.7-9.3); MPV 8.3 FL (7.4-10.4); NEUT# 5.67 X1000 (1.4-6.5); NEUT% 82.7 % (42.2-75.2); PLT 328 X1000 (130-400); RBC 4.28 XMIL (4.2-5.4); RDW 14.9 % (11.5-14.5); WBC 6.86 X1000 (4.8-10.8)
[2019-05-15] MEDS: DULCOLAX PR SCH (09:02)
[2019-05-15] MEDS: DIOVAN PO SCH (09:02)
[2019-05-15] MEDS: CITRACAL + D PO SCH (09:02)
[2019-05-15] MEDS: ZYLOPRIM PO SCH (09:02)
[2019-05-15] MEDS: LIDODERM TOP SCH (09:03)
[2019-05-15] MEDS: PERICOLACE PO SCH (09:03)
[2019-05-15 09:22] LABS: AGAP 10; ALB/GLOB RATIO 0.9; ALBUMIN 2.8 g/dL (3.5-5.0); ALKALINE PHOSPHATASE 107 U/L (32-104); BUN 15 mg/dL (8-22); CALCIUM 8.4 mg/dL (8.8-10.2); CHLORIDE 95 mmol/L (98-107); COSMO 276; CREATININE 0.6 mg/dL (0.5-0.9); ESTIMATED GFR > 60; GLUCOSE 151 mg/dL (70-104); GOT 34 U/L (10-30); GPT 30 U/L (10-36); SODIUM 136 mmol/L (136-145); TCO2 31 mmol/L (25-35); TOTAL BILIRUBIN 0.68 mg/dL (0.20-1.00); TOTAL PROTEIN 5.8 g/dL (6.3-8.3)
[2019-05-15] MEDS: LEVAQUIN 750 MG/D5W 750 MG/150 ML IVPB IV SCH (11:19)
[2019-05-15] MEDS ORDERED: NS IV ONE (13:00)
[2019-05-15] MEDS ORDERED: TECENTRIQ IV ONE (13:00)
--- NOTE | 2019-05-15 13:52 | HEMO/ONC PROGRESS NOTE ---
DATE: 05/15/2019 SUBJECTIVE: Ms. Thapa was sitting on the side of her bed this morning, obtaining a breathing treatment from Respiratory therapy. She states that her shortness of breath does not seem to be getting much better and her nausea is continuing to be a problem. She states her chemotherapy has given her minimal side effects. She states they are very tolerable, but she has needed to continue with around the clock antiemetics. The patient states she has not been sleeping good lately. She has had no acute events. OBJECTIVE: Vital Signs: Temperature 97.6 degrees, pulse rate 108, respiratory rate 20, blood pressure 165/68, O2 saturation 100% on nasal cannula at 6 L. 0/10 pain. PHYSICAL EXAMINATION: General: She does appear a bit anxious while obtaining her breathing treatments. Otherwise, she is in no acute distress. She does not appear to be in pain. Cardiovascular: Tachycardic rate and rhythm. Normal S1, S2. Respiratory: Lung sounds to the right are very diminished with wheezes. Lung sounds are relatively clear. Normal respiratory effort. Assessment obtained during breathing treatments. Abdomen: Protuberant, soft, nontender. Neurological: Alert and oriented x3. No focal motor deficits. Mild edema noted to bilateral upper extremities. LABORATORY: WBCs 6.86, hemoglobin 11.6, hematocrit 36.6, platelet count 328,000, ANC 5.67, potassium 4.0, BUN 15, creatinine 0.6, calcium 8.4. RADIOLOGY: Chest x-ray, worsened atelectasis and/or pneumonia on the right. The right upper lobe is almost entirely airless at this point. ASSESSMENT AND PLAN: 1. Right upper lung mediastinal mass with extensive adenopathy and probable right lower lobe with liver metastasis. 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 The patient is completing her 1st round of chemotherapy and immunotherapy. She tolerated it very well. She denies any significant side effects. She has experienced some nausea. 2. Nausea prophylaxis. The patient received Zofran prior to her chemotherapy to prevent any nausea. The patient is also receiving Zofran around the clock. 3. Allergy prophylaxis. The patient received Decadron prior to her infusions in case of any allergic reaction. Patient was monitored during her treatments for any possible allergic reaction. 4. Hyponatremia/syndrome of inappropriate antidiuretic hormone secretion. The patient needs to continue to have normal saline running 100 mL an hour. This is due to the patient's small cell lung cancer. 5. Deep venous thrombosis. On Lovenox. 6. Nutrition. Please continue the patient with protein shakes. Encourage her to eat and drink. 7. Tumor lysis prophylaxis. We will continue the patient on normal saline at 100 an hour as well as allopurinol. We will continue to monitor the patient for tumor lysis. Dictated by SHERICE Clemente for Sav Padilla MD Patient seen and examined. Patient continues to tolerate first cycle of chemotherapy for metastatic small cell lung cancer. After completion of chemotherapy, patient can be discharged. From her DVT standpoint, we will start on Xarelto at discharge. Continue allopurinol for tumor lysis prophylaxis. She has been advised regarding fluid restriction for her SIADH. Sav Padilla M.D. cc: Sav Padilla MD [facility]
[2019-05-15 16:14] VITALS: BP 121/70
[2019-05-15] MEDS ORDERED: XARELTO PO SCH (17:00)
[2019-05-15] MEDS ORDERED: ELIQUIS PO SCH (21:00)
--- NOTE | 2019-05-16 14:46 | DISCHARGE SUMMARY ---
ADMISSION DATE: 05/07/2019 DISCHARGE DATE: 05/15/2019 Patient length of stay was 8 days. DISPOSITION: Home. FOLLOWUP: Will be 1. Dr. Sarabia. 2. Dr. Tolentino. 3. Dr. Edwards. 4. Dr. Padilla. CONSULTATION: 1. Heme-Onc was consulted, patient was seen by Dr. Padilla. 2. Pulmonary Medicine was consulted, patient was seen by Dr. Edwards. 3. Surgery was consulted, patient was seen by Dr. Tolentino. 4. Pulmonary Medicine was consulted, patient was seen by Dr. Donovan. PROCEDURES: A port was placed in by Dr. Tolentino on 05/10/2019. Initial ultrasound-guided liver biopsy was done on 05/09/2019. This was followed up with a CT- guided liver biopsy on 05/10/2019. Pathology report shows that the CT-guided liver biopsy showed a metastatic poorly differentiated small cell neuroendocrine carcinoma pulmonary as origin. ADMISSION DIAGNOSIS: 1. Postobstruction pneumonia. 2. Right shoulder pain. 3. Right upper lobe mediastinal mass. 4. Hypertension. 5. Constipation. DIAGNOSIS AT THE TIME OF DISCHARGE: 1. Acute hypoxemic respiratory failure associated with hemoptysis on presentation secondary to right upper lobe which is presumed to be a small cell lung cancer with postobstructive pneumonitis. 2. Multiple hepatic masses from metastatic small cell lung cancer, patient is status post CT- guided biopsy. 3. Hyponatremia secondary to syndrome of inappropriate antidiuretic hormone secretion improved with Samsca. 4. Right upper extremity deep vein thrombosis. 5. 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 6. Postobstructive pneumonia. Tumor lysis prophylaxis. DISCHARGE MEDICATIONS: 1. Valsartan with hydrochlorothiazide 1 tab p.o. daily. 2. Metformin 500 p.o. daily. 3. Symbicort inhaler. 4. Januvia 100 mg p.o. daily. 5. Dulcolax 10 mg p.r. b.i.d. 6. Melissa-Colace 1 tablet b.i.d. Xarelto 50 mg b.i.d. for 21 days, patient will follow up with Dr. Padilla for further medication refills. 1. Allopurinol 300 mg p.o. daily. 2. Levofloxacin 500 p.o. for 5 additional days. PRESENTING COMPLAINT: Shortness of breath, productive cough. HISTORY OF PRESENTING COMPLAINT: Ms Thapa is a 69 years old female with history of diabetes mellitus, hypertension and previous brain aneurysm coiling in 2007, came to emergency department because of shortness of breath, productive cough and some hemoptysis. Upon presenting to the emergency department she was evaluated including imaging studies, a chest x-ray show a right upper lobe mass, probably postobstructive pneumonia. A CT scan of the abdomen and pelvic was done which shows numerous liver masses highly suspicious for metastatic disease. Ms. Thapa was admitted for further medical care. HOSPITAL COURSE: Ms Thapa was initially started on IV antibiotics, admitted to the medical floor on tele monitoring. Workup begun for metastatic disease. An initial ultrasound-guided liver biopsy was ordered which was unremarkable. A CT-guided biopsy was done which preliminary result came back positive for poorly differentiated small-cell cancer with primary coming from the lung. Ms Thapa was subsequently evaluated by surgery and a port was placed. A CAT scan of the brain with contrast did not show any metastases. She was started on chemotherapy during the hospital course. I think she got 2 different sessions of etoposide base chemo, subsequently she also got a dose of atezolizumab today. During the hospital course Ms Thapa was also found to have a right jugular vein thrombosis after the port was placed however the port was functional. She was started on anticoagulation. Today Ms. Thapa refers to be fairly okay, no new complaints. She feels just weak. Her breathing has slightly gotten better but for most part she remains the same. From medical standpoint we think she is stable to be discharged. I have discussed with her primary oncologist Dr. Padilla, who is in agreement for patient to be discharged and will follow up with him on outpatient. All the discharge instructions have been discussed with Ms. Thapa, her was also at the bedside at the time of the encounter. Both of them voiced understanding. At the time of the discharge her vitals blood pressure was 121/70 with pulse of 107, respiration is 18, temperature is 98 degrees, patient was saturating 100% on 3 L of nasal cannula, we think she is fairly stable to be discharged. Obviously she has very poor prognosis due to the metastatic small cell lung cancer. She is going to continue to follow up with Dr. Padilla and with the all the other subspecialties that have been involved with her care. TIME SPENT: 40 minutes. cc: Tera Tolentino MD
== END 2019-05-15 17:50 | disposition home or self-care (01) | DRG 829 ==
LOC: ED 07:56 → SUATTDRO 11:25 → EDIPHOLD 11:25 → 3N 17:15
PROVIDERS: ATTEND Internal Medicine